=== PATIENT | male | born 1955 | race Caucasian/White ===

== ENCOUNTER 2018-03-25 09:56 | Inpatient (IN) ==
[2018-03-25] MEDS ORDERED: 0.9 % Sodium Chloride 1,000 ML IVC ONE (10:15)
[2018-03-25] MEDS ORDERED: methylPREDNISolone 125 MG/2 ML VIAL IVP ONE (10:15)
[2018-03-25] MEDS ORDERED: Ipratropium/Albuterol Neb 3 ML IH ONE (10:15)
--- NOTE | 2018-03-25 10:25 | Emergency Department Note ---
Disposition Clinical Impression: Chest pain, Hypertension, Alcohol abuse, COPD exacerbation Syncope Qualifiers: Syncope type: unspecified Qualified Code(s): R55 - Syncope and collapse Disposition: Admitted As Inpatient Condition: Good Forms: ED Satisfaction Letter General Adult HPI - General Chief complaint: ED Shortness of Breath/Dyspnea Stated complaint: ARA/mid right rib pain/?syncope Time Seen by Provider: 03/25/18 10:04 Source: patient, EMS Limitations: no limitations Nursing Notes Reviewed: Yes Vital Signs Reviewed: Yes - History of Present Illness HPI Narrative: 62-year-old male who denies having any past medical history aside from " possibly COPD". He reports he does not see doctors and has not been taking any medications. He reports a in the family a few months ago and has been drinking heavily since then. Over the last week he reports feeling nauseated and has had intermittent chest pain. Today however the chest pain got worse and he had 2 episodes of syncope. He reports the first was while he was walking to go see his dog and he syncopized. He had another episode where he syncopized while getting out of the shower. He states he is not having a headache and does not think he hit his head. He reports he did hit his arm but it is just bruised. He then texted a family member and told to call 911. He is not currently having any chest pain. He does state that he feels short of breath. Has not been coughing. No known coronary arterial disease Radiation: non-radiation Pain Severity: mild Pain Scale: 4 Improves with: nothing Worsens with: nothing Associated symptoms: Reports: denies other symptoms Treatments Prior to Arrival: none - Related Data Home Medications Medication Instructions Recorded Confirmed Ibuprofen [Motrin Ib] 400 mg PO Q6-8H PRN 03/25/18 03/25/18 Allergies Allergy/AdvReac Type Severity Reaction Status Date / Time No Known Allergies Allergy Verified 03/25/18 12:16 All systems ED: reviewed and negative except as stated. Constitutional: Denies: fever ENT ED: Denies: throat pain Cardiovascular: Reports: chest pain Respiratory: Reports: dyspnea Gastrointestinal: Reports: nausea. Denies: abdominal pain, vomiting, diarrhea Musculoskeletal: Denies: back pain Integumentary: Denies: rash Neurological: Denies: headache Past Medical History - Past Medical History Medical history: Reports: COPD, other Psychiatric history: Reports: anxiety, depression - Social History Smoking Status: Current every day smoker Smokeless Tobacco Status: No Alcohol use: Reports: heavy, recent Drug use: Reports: none Physical Exam - General Limitations: no limitations General appearance: alert - Head Head exam: atraumatic - Eye Eye exam: Present: normal appearance, PERRL - ENT ENT exam: normal exam, normal oropharynx - Neck Neck exam: Present: normal inspection - Chest Chest inspection: Present: normal inspection - Respiratory Respiratory exam: Present: wheezes (wheezes present), prolonged expiratory phase - Cardiovascular Cardiovascular exam: Present: regular rate, normal rhythm - Abdominal Exam Abdominal exam: Present: soft, Non-Tender - Extremities Exam Extremities exam: Present: normal inspection, other (contusion on left arm. Full ROM.) - Neurological Exam Neurological exam: Present: alert, oriented X3 - Skin Skin exam: Present: warm, dry Course Course Narrative: On presentation he was exhibiting pursed lip breathing. This improved markedly after DuoNeb's and steroids. Wheezing also improved. EKG does not show any acute abnormality was troponin is negative. He does not currently have any chest pain. Diagnosis #1 COPD exacerbation, #2 alcohol abuse, #3 syncope, #4 chest pain After being here 2 hours he began to have a tremor, tachycardia, and wanting a drink of ETOH. Gave him 2mg of ativan and banana bag. Accepted by the hospitalist. Vital Signs Temperature 97.8 F 03/25/18 10:08 Pulse Rate 85 03/25/18 10:08 Respiratory Rate 26 03/25/18 10:08 Blood Pressure 165/107 03/25/18 10:08 O2 Sat by Pulse Oximetry 96 03/25/18 10:08 Temperature 97.8 F 03/25/18 10:08 Pulse Rate 92 03/25/18 12:03 Respiratory Rate 20 03/25/18 12:03 Blood Pressure 194/111 03/25/18 12:03 O2 Sat by Pulse Oximetry 95 03/25/18 12:03 Oxygen Delivery Oxygen Delivery Room Air Medical Decision Making - Medical Records Medical records reviewed: Yes I reviewed the patient's medical records. - Lab Data Lab results reviewed: Yes I reviewed the patient's lab results. Result diagrams: 03/25/18 10:15 03/25/18 10:15 Lab Results 03/25/18 03/25/18 03/25/18 Range/Units 10:15 10:15 10:15 WBC 8.5 (4.3-11.1) K/mcL RBC 4.94 (4.19-5.50) M/mcL Hgb 16.7 (12.9-16.9) g/dL Hct 46.1 (37.5-50.1) % MCV 93.3 (83.0-100.0) fL MCH 33.8 H (28.0-33.3) pg MCHC 36.2 H (31.6-35.5) g/dL RDW 15.3 H (11.5-14.5) % Plt Count 173 (140-400) K/mcL MPV 9.1 L (9.4-12.4) fL Immature Gran % 1.2 (0-4) % Seg Neutrophils % 70.5 % Lymphocytes % 20.1 % Monocytes % 7.5 % Eosinophils % 0.0 % Basophils % 0.7 % Neutrophils # 6.0 (1.6-8.9) K/mcL Lymphocytes # 1.7 (0.6-4.6) K/mcL Monocytes # 0.6 (0.0-1.3) K/mcL Eosinophils # 0.0 (0.0-0.6) K/mcL Basophils # 0.1 (0.0-0.2) K/mcL D-Dimer 1045 H (0-500) ng/mLFEU Sodium 136 (136-145) mEq/L Potassium 3.7 (3.5-5.1) mEq/L Chloride 100 (98-107) mEq/L Carbon Dioxide 21 L (23-29) mEq/L BUN 7 L (8-23) mg/dL Creatinine 0.66 L (0.70-1.30) mg/dL Est GFR ( Amer) > 60 (> 60) Est GFR (Non-Af Amer) > 60 (> 60) BUN/Creatinine Ratio 11 (6-26) Glucose 131 H (70-105) mg/dL Calculated Osmolality 282 (280-300) Calcium 9.3 (8.6-10.3) mg/dL Total Bilirubin 0.4 (0.3-1.0) mg/dL Direct Bilirubin 0.1 (0.0-0.2) mg/dL Indirect Bilirubin 0.3 (0.0-1.2) mg/dL AST 56 H (13-39) Units/L ALT 51 (7-52) Units/L Alkaline Phosphatase 160 H (34-104) Units/L Troponin I 0.03 (< 0.04) ng/mL B-Natriuretic Peptide (Less than 100) pg/mL Serum Total Protein 7.1 (6.4-8.9) g/dL Albumin 3.8 (3.5-5.7) g/dL Globulin 3.3 (2.4-3.5) g/dL Albumin/Globulin Ratio 1.2 (1.1-2.2) Lipase 52 (11-82) Units/L Urine Color (Yellow) Urine Clarity (Clear) Urine pH (5.0-8.0) pH Units Ur Specific [place] (1.010-1.025) Urine Protein (Neg-Trace) mg/dL Urine Glucose (UA) (Normal) mg/dL Urine Ketones (Negative) mg/dL Urine Blood (Negative) Urine Nitrite (Negative) Urine Bilirubin (Negative) Urine Urobilinogen (Normal) mg/dL Ur Leukocyte Esterase (Negative) Urine Microscopic RBC (0-3) per hpf Urine Microscopic WBC (0-3) per hpf Ur Squamous Epith Cells (None-Few) per lpf Urine Bacteria (None-Few) per hpf Ur Culture Indicated? (NO) Ethyl Alcohol (Less than 10) mg/dL 03/25/18 03/25/18 03/25/18 Range/Units 10:15 10:18 11:09 WBC (4.3-11.1) K/mcL RBC (4.19-5.50) M/mcL Hgb (12.9-16.9) g/dL Hct (37.5-50.1) % MCV (83.0-100.0) fL MCH (28.0-33.3) pg MCHC (31.6-35.5) g/dL RDW (11.5-14.5) % Plt Count (140-400) K/mcL MPV (9.4-12.4) fL Immature Gran % (0-4) % Seg Neutrophils % % Lymphocytes % % Monocytes % % Eosinophils % % Basophils % % Neutrophils # (1.6-8.9) K/mcL Lymphocytes # (0.6-4.6) K/mcL Monocytes # (0.0-1.3) K/mcL Eosinophils # (0.0-0.6) K/mcL Basophils # (0.0-0.2) K/mcL D-Dimer (0-500) ng/mLFEU Sodium (136-145) mEq/L Potassium (3.5-5.1) mEq/L Chloride (98-107) mEq/L Carbon Dioxide (23-29) mEq/L BUN (8-23) mg/dL Creatinine (0.70-1.30) mg/dL Est GFR ( Amer) (> 60) Est GFR (Non-Af Amer) (> 60) BUN/Creatinine Ratio (6-26) Glucose (70-105) mg/dL Calculated Osmolality (280-300) Calcium (8.6-10.3) mg/dL Total Bilirubin (0.3-1.0) mg/dL Direct Bilirubin (0.0-0.2) mg/dL Indirect Bilirubin (0.0-1.2) mg/dL AST (13-39) Units/L ALT (7-52) Units/L Alkaline Phosphatase (34-104) Units/L Troponin I (< 0.04) ng/mL B-Natriuretic Peptide 20 (Less than 100) pg/mL Serum Total Protein (6.4-8.9) g/dL Albumin (3.5-5.7) g/dL Globulin (2.4-3.5) g/dL Albumin/Globulin Ratio (1.1-2.2) Lipase (11-82) Units/L Urine Color Yellow (Yellow) Urine Clarity Clear (Clear) Urine pH 7.0 (5.0-8.0) pH Units Ur Specific [place] 1.006 L (1.010-1.025) Urine Protein 30 H (Neg-Trace) mg/dL Urine Glucose (UA) Normal (Normal) mg/dL Urine Ketones Negative (Negative) mg/dL Urine Blood Moderate H (Negative) Urine Nitrite Negative (Negative) Urine Bilirubin Negative (Negative) Urine Urobilinogen Normal (Normal) mg/dL Ur Leukocyte Esterase Negative (Negative) Urine Microscopic RBC 0-3 (0-3) per hpf Urine Microscopic WBC 0-3 (0-3) per hpf Ur Squamous Epith Cells Few (None-Few) per lpf Urine Bacteria None Seen (None-Few) per hpf Ur Culture Indicated? NO (NO) Ethyl Alcohol 266 H (Less than 10) mg/dL - Radiology Data Radiology results reviewed: Yes I reviewed the patient's radiology results. - EKG Data EKG #1 EKG attestation: Yes I reviewed and interpreted this EKG. EKG shows normal: sinus rhythm Rate: normal Rhythm: NSR When compared to previous EKG there are: no significant changes Interpretation: no acute changes, unchanged when compared to prior tracing (date )
--- NOTE | 2018-03-25 10:35 | Emergency Department Note ---
Disposition Clinical Impression: Syncope Qualifiers: Syncope type: unspecified Qualified Code(s): R55 - Syncope and collapse Disposition: Still a Patient Forms: ED Satisfaction Letter General Adult HPI - General Chief complaint: ED Shortness of Breath/Dyspnea Stated complaint: ARA/mid right rib pain/?syncope Time Seen by Provider: 03/25/18 10:04 Source: patient, EMS Limitations: no limitations - History of Present Illness Pain Scale: 4 Improves with: nothing Worsens with: nothing Associated symptoms: Reports: denies other symptoms Treatments Prior to Arrival: none - Related Data Home Medications Medication Instructions Recorded Confirmed No Known Home Drugs 03/25/18 03/25/18 Allergies Allergy/AdvReac Type Severity Reaction Status Date / Time No Known Allergies Allergy Verified 03/25/18 10:07 Constitutional: Denies: fever ENT ED: Denies: throat pain Cardiovascular: Reports: chest pain Respiratory: Reports: dyspnea Gastrointestinal: Reports: nausea. Denies: abdominal pain, vomiting, diarrhea Musculoskeletal: Denies: back pain Integumentary: Denies: rash Neurological: Denies: headache Past Medical History - Past Medical History Medical history: Reports: COPD, other Psychiatric history: Reports: anxiety, depression - Social History Smoking Status: Current every day smoker Smokeless Tobacco Status: No Alcohol use: Reports: heavy, recent Drug use: Reports: none Physical Exam - General Limitations: no limitations General appearance: alert Course Vital Signs Temperature 97.8 F 03/25/18 10:08 Pulse Rate 85 03/25/18 10:08 Respiratory Rate 03/25/18 10:08 Blood Pressure 165/107 03/25/18 10:08 O2 Sat by Pulse Oximetry 96 03/25/18 10:08 Temperature 97.8 F 03/25/18 10:08 Pulse Rate 85 03/25/18 10:20 Respiratory Rate 26 03/25/18 10:20 Blood Pressure 165/107 03/25/18 10:20 O2 Sat by Pulse Oximetry 96 03/25/18 10:20 Oxygen Delivery Oxygen Delivery Room Air Attestation Statement - Attestation Attestation: I examined this patient and my medical decision-making was reviewed with the Resident Physician. I agree with the documented findings, disposition and treatment plan as described except to the extent set forth below. 62 year old male presents to the eD after syncope and states that he has had some difficulty in breathing and states that he has been drinking all day. vital signs are stable. WE will do a syncopal workup.
[2018-03-25 10:40] LABS: Basophils # 0.1 K/mcL (0.0-0.2); Basophils % 0.7 %; Hematocrit 46.1 % (37.5-50.1); Hemoglobin 16.7 g/dL (12.9-16.9); Immature Granulocytes % 1.2 % (0-4); Lymphocytes # 1.7 K/mcL (0.6-4.6); Lymphocytes % 20.1 %; Mean Corpuscular HGB Conc 36.2 g/dL (31.6-35.5); Mean Corpuscular Hemoglobin 33.8 pg (28.0-33.3); Mean Corpuscular Volume 93.3 fL (83.0-100.0); Mean Platelet Volume 9.1 fL (9.4-12.4); Monocytes # 0.6 K/mcL (0.0-1.3); Monocytes % 7.5 %; Platelet Count 173 K/mcL (140-400); Red Blood Count 4.94 M/mcL (4.19-5.50); Red Cell Distribution Width 15.3 % (11.5-14.5); Segmented Neutrophils % 70.5 %
[2018-03-25 10:59] LABS: Alanine Aminotransferase 51 Units/L (7-52); Albumin 3.8 g/dL (3.5-5.7); Albumin/Globulin Ratio 1.2 (1.1-2.2); Alkaline Phosphatase 160 Units/L (34-104); Aspartate Amino Transferase 56 Units/L (13-39); BUN/Creatinine Ratio 11 (6-26); Bilirubin,Direct 0.1 mg/dL (0.0-0.2); Bilirubin,Indirect 0.3 mg/dL (0.0-1.2); Bilirubin,Total 0.4 mg/dL (0.3-1.0); Blood Urea Nitrogen 7 mg/dL (8-23); Calcium 9.3 mg/dL (8.6-10.3); Carbon Dioxide 21 mEq/L (23-29); Chloride 100 mEq/L (98-107); Globulin 3.3 g/dL (2.4-3.5); Glucose 131 mg/dL (70-105); Lipase 52 Units/L (11-82); Osmolality,Calculated 282 (280-300); Potassium 3.7 mEq/L (3.5-5.1); Sodium 136 mEq/L (136-145); Total Protein 7.1 g/dL (6.4-8.9); Troponin I 0.03 ng/mL (< 0.04); eGFR For African Americans > 60 (> 60); eGFR For Non-African Americans > 60 (> 60)
[2018-03-25] MEDS ORDERED: Isovue-370 500 ML INFUS..BTL IV ONE (11:07)
[2018-03-25 11:19] LABS: Bilirubin,Urine Negative (Negative); Blood,Urine Moderate (Negative); Clarity,Urine Clear (Clear); Color,Urine Yellow (Yellow); Glucose,Urine (UA) Normal (Normal); Ketones,Urine Negative (Negative); Leukocyte Esterase,Urine Negative (Negative); Nitrite,Urine Negative (Negative); Protein,Urine 30 mg/dL (Neg-Trace); Specific Gravity,Urine 1.006 (1.010-1.025); Urobilinogen,Urine Normal (Normal)
[2018-03-25 11:38] LABS: Bacteria,Urine None Seen per hpf (None-Few); RBC,Urine 0-3 per hpf (0-3); Squamous Epithelial Cell,Urine Few per lpf (None-Few); WBC,Urine 0-3 per hpf (0-3)
[2018-03-25] MEDS ORDERED: Thiamine (B-1) 100 MG, Folic Acid 1 MG, MVI, adult with vitamin K 10 ML in 0.9 % Sodi... IVPB ONE (12:36)
[2018-03-25] MEDS ORDERED: *HR* LORazepam 2 MG/ML VIAL IVP ONE (12:36)
[2018-03-25] MEDS ORDERED: Aspirin 325 MG TABLET PO ONE (12:41)
[2018-03-25] MEDS ORDERED: Naloxone 0.4 MG/ML INJ IVP PRN (13:26)
[2018-03-25] MEDS ORDERED: *HR* OxyCODONE Immed Rel 5 MG TABLET PO PRN (13:26)
[2018-03-25] MEDS ORDERED: Acetaminophen 325 MG TABLET PO PRN (13:26)
[2018-03-25] MEDS ORDERED: *HR* HYDROcodone/Acet 5/325 mg TABLET PO PRN (13:26)
[2018-03-25] MEDS ORDERED: *HR* LORazepam 2 MG/ML VIAL IVP PRN (13:28)
[2018-03-25] MEDS ORDERED: diazePAM 10 MG/2 ML SYRINGE IVP PRN (13:28)
--- NOTE | 2018-03-25 13:34 | Internal Med History&Physical ---
Date of Encounter: 03/25/18 Time of Encounter: 13:00 Internal Medicine - H&P: HPI Chief complaint: Chest pain, syncope, alcohol intoxication Admitted From: Emergency Dept Plans for Post Hospital Care: Home History of present illness: Mr. Hernandez is a 62 year old male with known history of chronic alcohol dependence who was under remission till last month, now he started drinking almost every day 10 to 12 beers presented to the ER complaining about has been passing out since last night also had chest pain located at sub sternal region and left chest wall area. Patient did mention that this morning while brushing his teeth he became lightheadedness and passed out for quick 1 to 2 minutes. He denied of any seizure activity. He did mention chest pain intermittently since last night located at sub sternal region non-radiating and more like sharp pain. He denied of an active chest pain at this moment. Patient seems to be alcohol intoxicated with his alcohol level at 266. He does complaining about severe tremors and shakiness now. Past Med Surg Social Fam HX - Past Medical History Medical history: COPD, other Additional medical history: ETOH abuse Psychiatric history: anxiety, depression - Social History Smoking Status: Current every day smoker Smokeless Tobacco Status: No Alcohol use: heavy, recent Drug use: none - Additional Family History Additional family history: Family hsitory reviewed and non contribuitory to current problem. Internal Medicine - H&P: Meds Ibuprofen [Motrin Ib] 400 mg PO Q6-8H PRN 03/25/18 [History] 3 Allergy/AdvReac Type Severity Reaction Status Date / Time No Known Allergies Allergy Verified 03/25/18 12:16 All Systems PM: A 10-system review of systems was performed and is negative for pertinent findings except as documented above in the HPI. Review of systems: All the systems are reviewed everything is benign except the systems and symptoms I mentioned in the history of present illness - Constitutional Vitals: Temp Pulse Resp BP Pulse Ox 97.8 F 92 20 194/111 95 03/25/18 10:08 03/25/18 12:03 03/25/18 12:03 03/25/18 12:03 03/25/18 12:03 General appearance: Present: cooperative, mild distress, A&O X 3, answers questions appropriately Exam: Anxious - Head Head exam: Present: atraumatic, normal inspection - Neck Neck exam general surgery: Present: supple - Respiratory Respiratory exam: Present: decreased breath sounds. Absent: rales, respiratory distress, rhonchi, wheezes - Cardiovascular Cardiovascular exam: Present: +S1, +S2, tachycardia. Absent: systolic murmur - GI/Abdominal GI/Abdominal exam: Present: normal bowel sounds, soft. Absent: guarding, rebound, rigid, tenderness - Extremities Exam Extremities exam: Absent: calf tenderness, pedal edema, tenderness - Back Exam Back exam: Absent: CVA tenderness (L), CVA tenderness (R) - Neurological Exam Neurological exam: Present: alert, oriented X3 - Psychiatric Psychiatric exam: Present: anxious - Skin Skin exam: Absent: rash Internal Med - H&P Results - Labs CBC & Chem 7: 03/25/18 10:15 03/25/18 10:15 Labs: Short CBC 03/25/18 Range/Units 10:15 WBC 8.5 (4.3-11.1) K/mcL Hgb 16.7 (12.9-16.9) g/dL Hct 46.1 (37.5-50.1) % Plt Count 173 (140-400) K/mcL Neutrophils # 6.0 (1.6-8.9) K/mcL BMP 03/25/18 10:15 Sodium 136 Potassium 3.7 Chloride 100 Carbon Dioxide 21 L BUN 7 L Creatinine 0.66 L Glucose 131 H Calcium 9.3 Cardiac Enzymes 03/25/18 Range/Units 10:15 Troponin I 0.03 (< 0.04) ng/mL Liver Function 03/25/18 Range/Units 10:15 Total Bilirubin 0.4 (0.3-1.0) mg/dL Direct Bilirubin 0.1 (0.0-0.2) mg/dL AST 56 H (13-39) Units/L ALT 51 (7-52) Units/L Alkaline Phosphatase 160 H (34-104) Units/L Albumin 3.8 (3.5-5.7) g/dL Urine 03/25/18 Range/Units 11:09 Urine Color Yellow (Yellow) Urine Clarity Clear (Clear) Urine pH 7.0 (5.0-8.0) pH Units Ur Specific [place] 1.006 L (1.010-1.025) Urine Protein 30 H (Neg-Trace) mg/dL Urine Glucose (UA) Normal (Normal) mg/dL - Impressions ITS Impressions Chest X-Ray 03/25/18 10:15 IMPRESSION: Negative portable study. D/ / Elina Barba Cha, MD / Elina Barba Cha, MD Interpreting Provider: Elina Barba Cha, MD Head CT 03/25/18 10:27 IMPRESSION: No acute intracranial abnormality. D/ / Paulino Spicer MD / Paulino Spicer MD Interpreting Provider: Paulino Spicer MD Chest CTA 03/25/18 11:07 IMPRESSION: No evidence of pulmonary embolism or acute pulmonary abnormality. Hepatic steatosis. 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 serial troponin so far negative trop will start ASA will get 2 D echo in AM Will check FLP in AM Will check ortho stat vitals Started on IV fluids He is high risk for DT's so definitely need more than 2 to 3 days of hospital stay and close monitoring Qualifiers: Syncope type: unspecified Qualified Code(s): R55 - Syncope and collapse (2) Alcohol intoxication Current Visit: Yes Status: Acute Assessment and plan: Counseled to quit drinking alcohol patient did mention his mother a month ago since then he became alcohol dependence again currently he is an active DTs with tremors, shakiness and anxiety started him on CIWA protocol Will also give him Librium 50g Q6hr YOLI banana bag daily PO Thiamine and Folic acid continue checking LFTs Qualifiers: Complication of substance-induced condition: with unspecified complication Qualified Code(s): F10.929 - Alcohol use, unspecified with intoxication, unspecified (3) Alcohol dependence Current Visit: Yes Status: Acute Assessment and plan: Patient is willing to go to rehab licensed clinical social worker consulted to help the patient about alcohol rehab centers Qualifiers: Substance use status: with intoxication Complication of substance-induced condition: with unspecified complication Qualified Code(s): F10.229 - Alcohol dependence with intoxication, unspecified (4) Chest pain Current Visit: Yes Status: Acute Assessment and plan: Atypical no acute EKG changes noticed placed him on tele trend on troponin Qualifiers: Chest pain type: unspecified Qualified Code(s): R07.9 - Chest pain, unspecified (5) Tobacco dependence Current Visit: Yes Status: Acute Assessment and plan: Counseled to quit smoking placed on nicotine patch - Time Spent With Patient Total time spent is greater than 50% in coordination of care (as documented) at patient's floor/unit and/or counseling patient:
[2018-03-25] MEDS: Nicotine 21 MG PATCH.TD24 TD SCH (15:10)
[2018-03-25] MEDS: Thiamine (B-1) 100 MG TABLET PO SCH (15:10)
[2018-03-25] MEDS: *HR* Promethazine 25 MG/ML VIAL IVP PRN (15:10)
[2018-03-25] MEDS: Vitamin B Complex/Vit C/Vit E 1 EACH TABLET PO SCH (15:10)
[2018-03-25] MEDS: 0.9 % Sodium Chloride 1,000 ML IVC SCH ×2 (15:14→23:29)
[2018-03-25] MEDS: *HR* LORazepam 2 MG/ML VIAL IVP PRN (21:28)
[2018-03-26] MEDS: *HR* Promethazine 25 MG/ML VIAL IVP PRN ×2 (03:54→11:48)
[2018-03-26 05:14] LABS: Basophils % 0.1 %; Hematocrit 40.7 % (37.5-50.1); Immature Granulocytes % 0.8 % (0-4); Lymphocytes # 0.8 K/mcL (0.6-4.6); Lymphocytes % 5.7 %; Mean Corpuscular HGB Conc 34.6 g/dL (31.6-35.5); Mean Corpuscular Hemoglobin 32.7 pg (28.0-33.3); Mean Corpuscular Volume 94.4 fL (83.0-100.0); Mean Platelet Volume 9.6 fL (9.4-12.4); Monocytes # 0.7 K/mcL (0.0-1.3); Monocytes % 4.9 %; Platelet Count 120 K/mcL (140-400); Red Blood Count 4.31 M/mcL (4.19-5.50); Red Cell Distribution Width 15.9 % (11.5-14.5); Segmented Neutrophils % 88.5 %
[2018-03-26 05:17] LABS: Hemoglobin 14.1 g/dL (12.9-16.9); Neutrophils # 12.4 K/mcL (1.6-8.9)
[2018-03-26 05:22] LABS: INR 1.1; Prothrombin Time 11.8 Seconds (9.4-12.1)
[2018-03-26] MEDS: *HR* Enoxaparin 40 MG/0.4 ML SYRINGE SQ SCH (05:32)
[2018-03-26 05:40] LABS: Alanine Aminotransferase 35 Units/L (7-52); Albumin 3.2 g/dL (3.5-5.7); Albumin/Globulin Ratio 1.2 (1.1-2.2); Alkaline Phosphatase 128 Units/L (34-104); Aspartate Amino Transferase 34 Units/L (13-39); BUN/Creatinine Ratio 21 (6-26); Bilirubin,Total 0.6 mg/dL (0.3-1.0); Blood Urea Nitrogen 11 mg/dL (8-23); Calcium 8.9 mg/dL (8.6-10.3); Carbon Dioxide 23 mEq/L (23-29); Chloride 107 mEq/L (98-107); Chol/HDL Ratio 2.5 (0-4.9); Cholesterol 165 mg/dL (< 200); Globulin 2.7 g/dL (2.4-3.5); Glucose 171 mg/dL (70-105); HDL Cholesterol 67 mg/dL (40-59); LDL Cholesterol,Calculated 86 mg/dL (0-99); Magnesium 1.7 mg/dL (1.6-2.6); Osmolality,Calculated 287 (280-300); Phosphorous 3.2 mg/dL (2.7-4.5); Potassium 3.8 mEq/L (3.5-5.1); Sodium 137 mEq/L (136-145); Total Protein 5.9 g/dL (6.4-8.9); Triglycerides 58 mg/dL (< 150); eGFR For African Americans > 60 (> 60); eGFR For Non-African Americans > 60 (> 60)
[2018-03-26] MEDS: Thiamine (B-1) 100 MG TABLET PO SCH (09:48)
[2018-03-26] MEDS: Folic Acid 1 MG TABLET PO SCH (09:48)
[2018-03-26] MEDS: Nicotine 21 MG PATCH.TD24 TD SCH (09:48)
[2018-03-26] MEDS: Vitamin B Complex/Vit C/Vit E 1 EACH TABLET PO SCH (09:48)
[2018-03-26] MEDS: *HR* LORazepam 2 MG/ML VIAL IVP PRN ×2 (09:54→21:21)
--- NOTE | 2018-03-26 10:46 | Internal Med Progress Note ---
Date of Encounter: 03/26/18 Time of Encounter: 10:00 - Assessment and plan (1) Syncope Current Visit: Yes Status: Acute Assessment and plan: Pt's Syncope seems to be more like vasovagal reaction / ortho static / alcohol intoxication trops are negative x 3 Cont ASA 2 D echo - P reviewed FLP- WNL Cont IVF x 1 bag Qualifiers: Syncope type: unspecified Qualified Code(s): R55 - Syncope and collapse (2) Alcohol intoxication Current Visit: Yes Status: Acute Assessment and plan: Counseled to quit drinking alcohol patient did mention his mother a month ago since then he became alcohol dependence again currently he is an active DTs with tremors, shakiness and anxiety Cont him on CIWA protocol Cont Librium 50g Q6hr YOLI PO Thiamine and Folic acid Improved LFT's Qualifiers: Complication of substance-induced condition: with unspecified complication Qualified Code(s): F10.929 - Alcohol use, unspecified with intoxication, unspecified (3) Alcohol dependence Current Visit: Yes Status: Acute Assessment and plan: Patient is willing to go to rehab rn social work consulted to help the patient about alcohol rehab centers Qualifiers: Substance use status: with intoxication Complication of substance-induced condition: with unspecified complication Qualified Code(s): F10.229 - Alcohol dependence with intoxication, unspecified (4) Chest pain Current Visit: Yes Status: Acute Assessment and plan: Atypical no acute EKG changes noticed Cont him on tele Negative troponin Qualifiers: Chest pain type: unspecified Qualified Code(s): R07.9 - Chest pain, unspecified (5) Tobacco dependence Current Visit: Yes Status: Acute Assessment and plan: Counseled to quit smoking placed on nicotine patch - Time Spent With Patient Total time spent is greater than 50% in coordination of care (as documented) at patient's floor/unit and/or counseling patient: - Subjective Interval history: Mr. Hernandez is a 62 year old male with known history of chronic alcohol dependence who was under remission till last month, now he started drinking almost every day 10 to 12 beers presented to the ER complaining about has been passing out since last night also had chest pain located at sub sternal region and left chest wall area. Patient did mention that this morning while brushing his teeth he became lightheadedness and passed out for quick 1 to 2 minutes. He denied of any seizure activity. Patient seems to be alcohol intoxicated with his alcohol level at 266. Pt was admitted in the hospital and placed him on tele. He was placed on CIWA protocol. Today he is more alert, awake and O x 3. Denied any CP . SOB. He still has tremors and shakiness. Pt states he feels little better only. - Constitutional Vitals: Temp Pulse Resp BP Pulse Ox 98 F 90 21 121/74 93 03/26/18 06:29 03/26/18 06:29 03/26/18 06:29 03/26/18 06:29 03/26/18 06:29 General appearance: Present: cooperative, mild distress, A&O X 3, answers questions appropriately Exam: tremors+ - Head Head exam: Present: atraumatic, normal inspection - Neck Neck exam general surgery: Present: supple - Respiratory Respiratory exam: Present: decreased breath sounds. Absent: rales, respiratory distress, rhonchi, wheezes - Cardiovascular Cardiovascular exam: Present: RRR, +S1, +S2. Absent: tachycardia - GI/Abdominal GI/Abdominal exam: Present: normal bowel sounds, soft. Absent: rebound, rigid, tenderness - Extremities Exam Extremities exam: Absent: calf tenderness, pedal edema, tenderness - Back Exam Back exam: Absent: CVA tenderness (L), CVA tenderness (R) - Neurological Exam Neurological exam: Present: alert, oriented X3 - Psychiatric Psychiatric exam: Present: anxious - Skin Skin exam: Absent: rash Internal Medicine: Result - Labs CBC & Chem 7: 03/26/18 04:48 03/26/18 04:48 Labs: Short CBC 03/26/18 Range/Units 04:48 WBC 14.0 H D (4.3-11.1) K/mcL Hgb 14.1 D (12.9-16.9) g/dL Hct 40.7 (37.5-50.1) % Plt Count 120 L (140-400) K/mcL Neutrophils # 12.4 H (1.6-8.9) K/mcL BMP 03/26/18 04:48 Sodium 137 Potassium 3.8 Chloride 107 Carbon Dioxide 23 BUN 11 Creatinine 0.53 L Glucose 171 H Calcium 8.9 Cardiac Enzymes 03/25/18 03/25/18 Range/Units 16:09 22:27 Troponin I 0.03 0.03 (< 0.04) ng/mL Liver Function 03/26/18 Range/Units 04:48 Total Bilirubin 0.6 (0.3-1.0) mg/dL AST 34 (13-39) Units/L ALT 35 (7-52) Units/L Alkaline Phosphatase 128 H (34-104) Units/L Albumin 3.2 L (3.5-5.7) g/dL - ABG Interpretation ABG results: PT/INR, D-dimer PT 11.8 Seconds (9.4-12.1) 03/26/18 04:48 D-Dimer 1045 ng/mLFEU (0-500) H 03/25/18 10:15 - Impressions Impressions Echocardiogram 03/26/18 13:29 Impressions: LVEF 65-70%. Mild left ventricular diastolic dysfunction. Normal right ventricular structure and function. No significant valvular dysfunction. No pulmonary hypertension. Left Ventricular Wall Motion: Rest Echo Findings All wall segments showed normal motion. Findings: Study Quality * Technically adequate exam. ECG Findings * Normal sinus rhythm. Left Ventricle * LVEF 65-70%. * Mild left ventricular diastolic dysfunction. * Normal LV chamber size and wall thickness. Right Ventricle * Normal right ventricular structure and function. Left Atrium * Normal left atrial size. Right Atrium * Normal right atrial size. Mitral Valve * Normal mitral valve structure. * No mitral stenosis. * No mitral regurgitation. Aortic Valve * No aortic regurgitation. * Aortic valve not well visualized. * No aortic stenosis. Tricuspid Valve * Tricuspid valve not well visualized. * No tricuspid regurgitation. * Estimated RA pressure is 3 mmHg. * Estimated RVSP is 18 mmHg. * No pulmonary hypertension. Pulmonic Valve * Pulmonic valve is not well visualized. * No pulmonic stenosis. * No pulmonic regurgitation. Pulmonary Artery * Pulmonary artery not well visualized. Aorta * Normally sized aortic root. Pericardium * There is no pericardial effusion present. Interatrial Septum * No evidence of PFO by color Doppler. IVC * The IVC is not dilated. Consult Discharge Plan - Plan Referrals: NONE,PCP [Primary Care Provider] - Falguni Rodriguez [Family Provider] -
[2018-03-26] MEDS ORDERED: 0.9 % Sodium Chloride 1,000 ML IVC SCH (11:00)
--- NOTE | 2018-03-26 17:34 | Electrocardiograph Report ---
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
[2018-03-27] MEDS: *HR* LORazepam 2 MG/ML VIAL IVP PRN ×3 (00:46→23:55)
[2018-03-27] MEDS: *HR* Enoxaparin 40 MG/0.4 ML SYRINGE SQ SCH (05:24)
[2018-03-27 05:25] LABS: Basophils % 0.2 %; Eosinophils % 0.3 %; Hematocrit 40.9 % (37.5-50.1); Hemoglobin 13.9 g/dL (12.9-16.9); Immature Granulocytes % 0.8 % (0-4); Lymphocytes # 2.4 K/mcL (0.6-4.6); Lymphocytes % 23.6 %; Mean Corpuscular Volume 97.1 fL (83.0-100.0); Mean Platelet Volume 10.1 fL (9.4-12.4); Monocytes # 0.6 K/mcL (0.0-1.3); Monocytes % 5.6 %; Neutrophils # 7.1 K/mcL (1.6-8.9); Platelet Count 109 K/mcL (140-400); Red Blood Count 4.21 M/mcL (4.19-5.50); Red Cell Distribution Width 16.7 % (11.5-14.5); Segmented Neutrophils % 69.5 %
[2018-03-27 05:46] LABS: Alanine Aminotransferase 34 Units/L (7-52); Albumin 3.1 g/dL (3.5-5.7); Albumin/Globulin Ratio 1.2 (1.1-2.2); Alkaline Phosphatase 106 Units/L (34-104); Aspartate Amino Transferase 38 Units/L (13-39); BUN/Creatinine Ratio 27 (6-26); Bilirubin,Total 0.5 mg/dL (0.3-1.0); Blood Urea Nitrogen 17 mg/dL (8-23); Calcium 8.9 mg/dL (8.6-10.3); Carbon Dioxide 23 mEq/L (23-29); Chloride 109 mEq/L (98-107); Globulin 2.6 g/dL (2.4-3.5); Glucose 122 mg/dL (70-105); Magnesium 1.8 mg/dL (1.6-2.6); Osmolality,Calculated 291 (280-300); Potassium 3.9 mEq/L (3.5-5.1); Sodium 139 mEq/L (136-145); Total Protein 5.7 g/dL (6.4-8.9); eGFR For African Americans > 60 (> 60); eGFR For Non-African Americans > 60 (> 60)
[2018-03-27] MEDS: Thiamine (B-1) 100 MG TABLET PO SCH (09:02)
[2018-03-27] MEDS: Nicotine 21 MG PATCH.TD24 TD SCH (09:03)
[2018-03-27] MEDS: Vitamin B Complex/Vit C/Vit E 1 EACH TABLET PO SCH (09:03)
[2018-03-27] MEDS: Folic Acid 1 MG TABLET PO SCH (09:03)
--- NOTE | 2018-03-27 14:05 | Internal Med Progress Note ---
<Pallavi Morales - Last Filed: 03/27/18 16:02> Date of Encounter: 03/27/18 Time of Encounter: 16:03 - Assessment and plan (1) Syncope Current Visit: Yes Status: Acute Assessment and plan: Pt's Syncope seems to be more like vasovagal reaction / ortho static / alcohol intoxication trops are negative x 3 Cont ASA Echo EF 65-70% with mild LV diastolic dysfunction Qualifiers: Syncope type: unspecified Qualified Code(s): R55 - Syncope and collapse (2) Chest pain Current Visit: Yes Status: Acute Assessment and plan: Atypical no acute EKG changes noticed Cont him on tele Negative troponin Qualifiers: Chest pain type: unspecified Qualified Code(s): R07.9 - Chest pain, unspecified (3) Alcohol intoxication Current Visit: Yes Status: Acute Assessment and plan: currently he is an active DTs with tremors, shakiness and anxiety Cont him on CIWA protocol Cont Librium 50g Q6hr YOLI PO Thiamine and Folic acid Improved LFT's Added clonidine BID Qualifiers: Complication of substance-induced condition: with unspecified complication Qualified Code(s): F10.929 - Alcohol use, unspecified with intoxication, unspecified (4) Alcohol dependence Current Visit: Yes Status: Acute Assessment and plan: Patient is willing to go to rehab social media marketing analyst consulted to help the patient about alcohol rehab centers Qualifiers: Substance use status: with intoxication Complication of substance-induced condition: with unspecified complication Qualified Code(s): F10.229 - Alcohol dependence with intoxication, unspecified (5) Tobacco dependence Current Visit: Yes Status: Acute Assessment and plan: placed on nicotine patch - Time Spent With Patient Total time spent is greater than 50% in coordination of care (as documented) at patient's floor/unit and/or counseling patient: - Subjective Interval history: Patient states he has had some anxiety today but otherwise feeling okay. Patient denies any other complaints at this time. Nursing has noted minimal shaking throughout the day. - Constitutional Vitals: Temp Pulse Resp BP Pulse Ox 97.8 F 66 15 147/86 94 03/27/18 11:27 03/27/18 11:27 03/27/18 11:27 03/27/18 11:27 03/27/18 11:27 General appearance: Present: cooperative, mild distress, A&O X 3, answers questions appropriately - Respiratory Respiratory exam: Present: CTAB. Absent: accessory muscle use, respiratory distress - Cardiovascular Cardiovascular exam: Present: RRR - GI/Abdominal GI/Abdominal exam: Present: soft. Absent: rebound, rigid, tenderness - Extremities Exam Extremities exam: Present: warm. Absent: tenderness - Neurological Exam Neurological exam: Present: no focal deficits Internal Medicine: Result - Labs CBC & Chem 7: 03/27/18 04:55 03/27/18 04:55 Labs: Short CBC 03/27/18 Range/Units 04:55 WBC 10.3 (4.3-11.1) K/mcL Hgb 13.9 (12.9-16.9) g/dL Hct 40.9 (37.5-50.1) % Plt Count 109 L (140-400) K/mcL Neutrophils # 7.1 (1.6-8.9) K/mcL BMP 03/27/18 04:55 Sodium 139 Potassium 3.9 Chloride 109 H Carbon Dioxide 23 BUN 17 Creatinine 0.63 L Glucose 122 H Calcium 8.9 Liver Function 03/27/18 Range/Units 04:55 Total Bilirubin 0.5 (0.3-1.0) mg/dL AST 38 (13-39) Units/L ALT 34 (7-52) Units/L Alkaline Phosphatase 106 H (34-104) Units/L Albumin 3.1 L (3.5-5.7) g/dL - ABG Interpretation ABG results: PT/INR, D-dimer PT 11.8 Seconds (9.4-12.1) 03/26/18 04:48 D-Dimer 1045 ng/mLFEU (0-500) H 03/25/18 10:15 Consult Discharge Plan - Plan Referrals: NONE,PCP [Primary Care Provider] - Falguni Rodriguez [Family Provider] - <Jose Rafael Ortega - Last Filed: 03/27/18 18:28> Date of Encounter: 03/27/18 - Assessment and plan (1) Alcohol withdrawal Current Visit: Yes Status: Acute Qualifiers: Complication of substance-induced condition: uncomplicated Qualified Code(s ): F10.230 - Alcohol dependence with withdrawal, uncomplicated (2) Alcohol dependence Current Visit: Yes Status: Acute Qualifiers: Substance use status: with intoxication Complication of substance-induced condition: uncomplicated Qualified Code(s): F10.220 - Alcohol dependence with intoxication, uncomplicated (3) Syncope Current Visit: Yes Status: Resolved Qualifiers: Syncope type: unspecified Qualified Code(s): R55 - Syncope and collapse (4) Chest pain Current Visit: Yes Status: Resolved Qualifiers: Chest pain type: unspecified Qualified Code(s): R07.9 - Chest pain, unspecified (5) Tobacco dependence Current Visit: Yes Status: Acute (6) Hypertension Current Visit: Yes Status: Chronic Qualifiers: Hypertension type: essential hypertension Qualified Code(s): I10 - Essential (primary) hypertension (7) Severe protein-calorie malnutrition Current Visit: Yes Status: Chronic - Time Spent With Patient Total time spent is greater than 50% in coordination of care (as documented) at patient's floor/unit and/or counseling patient: - Constitutional Vitals: Temp Pulse Resp BP Pulse Ox 96.9 F L 81 18 157/92 94 03/27/18 15:58 03/27/18 15:58 03/27/18 15:58 03/27/18 15:58 03/27/18 15:58 Internal Medicine: Result - Labs CBC & Chem 7: 03/27/18 04:55 03/27/18 04:55 Labs: Short CBC 03/27/18 Range/Units 04:55 WBC 10.3 (4.3-11.1) K/mcL Hgb 13.9 (12.9-16.9) g/dL Hct 40.9 (37.5-50.1) % Plt Count 109 L (140-400) K/mcL Neutrophils # 7.1 (1.6-8.9) K/mcL BMP 03/27/18 04:55 Sodium 139 Potassium 3.9 Chloride 109 H Carbon Dioxide 23 BUN 17 Creatinine 0.63 L Glucose 122 H Calcium 8.9 Liver Function 03/27/18 Range/Units 04:55 Total Bilirubin 0.5 (0.3-1.0) mg/dL AST 38 (13-39) Units/L ALT 34 (7-52) Units/L Alkaline Phosphatase 106 H (34-104) Units/L Albumin 3.1 L (3.5-5.7) g/dL - ABG Interpretation ABG results: PT/INR, D-dimer PT 11.8 Seconds (9.4-12.1) 03/26/18 04:48 D-Dimer 1045 ng/mLFEU (0-500) H 03/25/18 10:15 - Attending Attestation I examined this patient and my medical decision-making was reviewed with the Resident Physician on 03/27/18. I agree with the documented findings, disposition and treatment plan as described except to the extent set forth below. Mr Hernandez is currently admitted for acute alcohol intoxication and withdrawal. He is worsening and may be heading to DTs. He remains moderate to high risk due to potential for worsening clinical status. Mr Hernandez is very shaky. He is not confused. BP and heart rate are up. No fever or chills. No GI issues. Exam Alert Mod distress Tremor noted Mucus membranes dry Heart tachy Lungs diminished I/P 1. ETOH abuse and withdrawal Further diagnoses and plan as above.
[2018-03-27] MEDS: cloNIDine HCl 0.1 MG TABLET PO SCH ×2 (18:06→23:30)
[2018-03-28 04:20] LABS: Basophils % 0.6 %; Eosinophils % 1.3 %; Mean Corpuscular Volume 97.9 fL (83.0-100.0)
[2018-03-28 04:22] LABS: Eosinophils # 0.1 K/mcL (0.0-0.6); Hematocrit 37.5 % (37.5-50.1); Immature Granulocytes % 1.3 % (0-4); Immature Platelets 4.1 % (1.1-6.1); Lymphocytes # 2.7 K/mcL (0.6-4.6); Lymphocytes % 37.5 %; Mean Corpuscular HGB Conc 34.7 g/dL (31.6-35.5); Mean Corpuscular Hemoglobin 33.9 pg (28.0-33.3); Mean Platelet Volume 10.3 fL (9.4-12.4); Monocytes # 0.5 K/mcL (0.0-1.3); Monocytes % 6.7 %; Neutrophils # 3.8 K/mcL (1.6-8.9); Nucleated Red Blood Cells 0.3 /100 WBC (0); Red Blood Count 3.83 M/mcL (4.19-5.50); Red Cell Distribution Width 16.1 % (11.5-14.5); Segmented Neutrophils % 52.6 %
[2018-03-28 04:24] LABS: Platelet Count 97 K/mcL (140-400)
[2018-03-28 04:40] LABS: Alanine Aminotransferase 34 Units/L (7-52); Albumin 2.8 g/dL (3.5-5.7); Albumin/Globulin Ratio 1.2 (1.1-2.2); Alkaline Phosphatase 82 Units/L (34-104); Aspartate Amino Transferase 35 Units/L (13-39); BUN/Creatinine Ratio 28 (6-26); Bilirubin,Total 0.5 mg/dL (0.3-1.0); Blood Urea Nitrogen 17 mg/dL (8-23); Calcium 8.5 mg/dL (8.6-10.3); Carbon Dioxide 25 mEq/L (23-29); Chloride 110 mEq/L (98-107); Globulin 2.3 g/dL (2.4-3.5); Glucose 107 mg/dL (70-105); Osmolality,Calculated 296 (280-300); Potassium 3.6 mEq/L (3.5-5.1); Sodium 142 mEq/L (136-145); Total Protein 5.1 g/dL (6.4-8.9); eGFR For African Americans > 60 (> 60); eGFR For Non-African Americans > 60 (> 60)
[2018-03-28] MEDS: *HR* Enoxaparin 40 MG/0.4 ML SYRINGE SQ SCH (05:00)
[2018-03-28] MEDS: Thiamine (B-1) 100 MG TABLET PO SCH (08:21)
[2018-03-28] MEDS: cloNIDine HCl 0.1 MG TABLET PO SCH ×2 (08:21→20:39)
[2018-03-28] MEDS: Folic Acid 1 MG TABLET PO SCH (08:21)
[2018-03-28] MEDS: Nicotine 21 MG PATCH.TD24 TD SCH (08:21)
[2018-03-28] MEDS: Vitamin B Complex/Vit C/Vit E 1 EACH TABLET PO SCH (08:21)
--- NOTE | 2018-03-28 11:19 | Internal Med Progress Note ---
Addendum entered and electronically signed by Pallavi Morales DO 03/28/18 14 :22: Patient no longer taking aspirin at this time Original Note: <Pallavi Morales - Last Filed: 03/28/18 11:16> Date of Encounter: 03/28/18 Time of Encounter: 11:16 - Assessment and plan (1) Syncope Current Visit: Yes Status: Resolved Assessment and plan: Pt's Syncope seems to be more like vasovagal reaction / ortho static / alcohol intoxication trops are negative x 3 Cont ASA Echo EF 65-70% with mild LV diastolic dysfunction Qualifiers: Syncope type: unspecified Qualified Code(s): R55 - Syncope and collapse (2) Chest pain Current Visit: Yes Status: Resolved Assessment and plan: Atypical no acute EKG changes noticed Cont him on tele Negative troponin Qualifiers: Chest pain type: unspecified Qualified Code(s): R07.9 - Chest pain, unspecified (3) Alcohol intoxication Current Visit: Yes Status: Acute Assessment and plan: currently he is an active DTs with tremors, shakiness and anxiety Cont him on CIWA protocol Cont Librium 50g Q6hr YOLI, continue clonidine PO Thiamine and Folic acid Improved LFT's Qualifiers: Complication of substance-induced condition: uncomplicated Qualified Code(s ): F10.920 - Alcohol use, unspecified with intoxication, uncomplicated (4) Alcohol dependence Current Visit: Yes Status: Acute Assessment and plan: Patient is willing to go to rehab social media marketing specialist consulted to help the patient about alcohol rehab centers Qualifiers: Substance use status: with intoxication Complication of substance-induced condition: uncomplicated Qualified Code(s): F10.220 - Alcohol dependence with intoxication, uncomplicated (5) Tobacco dependence Current Visit: Yes Status: Acute Assessment and plan: placed on nicotine patch - Time Spent With Patient Total time spent is greater than 50% in coordination of care (as documented) at patient's floor/unit and/or counseling patient: - Subjective Interval history: Patient states he is still having baseline anxiety but otherwise feeling good today. No new concerns or complaints. - Constitutional Vitals: Temp Pulse Resp BP Pulse Ox 98.2 F 63 17 173/93 92 03/28/18 06:45 03/28/18 06:45 03/28/18 06:45 03/28/18 06:45 03/28/18 06:45 General appearance: Present: cooperative, mild distress, A&O X 3, answers questions appropriately - Respiratory Respiratory exam: Present: CTAB. Absent: accessory muscle use, respiratory distress - Cardiovascular Cardiovascular exam: Present: RRR - GI/Abdominal GI/Abdominal exam: Present: soft. Absent: rebound, rigid, tenderness - Extremities Exam Extremities exam: Present: warm. Absent: tenderness - Neurological Exam Neurological exam: Present: alert, no focal deficits Internal Medicine: Result - Labs CBC & Chem 7: 03/28/18 03:24 03/28/18 03:24 Labs: Short CBC 03/28/18 Range/Units 03:24 WBC 7.2 (4.3-11.1) K/mcL Hgb 13.0 (12.9-16.9) g/dL Hct 37.5 (37.5-50.1) % Plt Count 97 L (140-400) K/mcL Neutrophils # 3.8 (1.6-8.9) K/mcL BMP 03/28/18 03:24 Sodium 142 Potassium 3.6 Chloride 110 H Carbon Dioxide 25 BUN 17 Creatinine 0.60 L Glucose 107 H Calcium 8.5 L Liver Function 03/28/18 Range/Units 03:24 Total Bilirubin 0.5 (0.3-1.0) mg/dL AST 35 (13-39) Units/L ALT 34 (7-52) Units/L Alkaline Phosphatase 82 (34-104) Units/L Albumin 2.8 L (3.5-5.7) g/dL - ABG Interpretation ABG results: PT/INR, D-dimer PT 11.8 Seconds (9.4-12.1) 03/26/18 04:48 D-Dimer 1045 ng/mLFEU (0-500) H 03/25/18 10:15 Consult Discharge Plan - Plan Referrals: Darlene Spears DO [Resident] - 04/10/18 2:00 pm <Jose Rafael Ortega - Last Filed: 03/28/18 17:49> Date of Encounter: 03/28/18 - Assessment and plan (1) Alcohol withdrawal Current Visit: Yes Status: Acute Qualifiers: Complication of substance-induced condition: uncomplicated Qualified Code(s ): F10.230 - Alcohol dependence with withdrawal, uncomplicated (2) Alcohol dependence Current Visit: Yes Status: Acute Qualifiers: Substance use status: with intoxication Complication of substance-induced condition: uncomplicated Qualified Code(s): F10.220 - Alcohol dependence with intoxication, uncomplicated (3) Syncope Current Visit: Yes Status: Resolved Qualifiers: Syncope type: unspecified Qualified Code(s): R55 - Syncope and collapse (4) Chest pain Current Visit: Yes Status: Resolved Qualifiers: Chest pain type: unspecified Qualified Code(s): R07.9 - Chest pain, unspecified (5) Tobacco dependence Current Visit: Yes Status: Acute (6) Hypertension Current Visit: Yes Status: Chronic Qualifiers: Hypertension type: essential hypertension Qualified Code(s): I10 - Essential (primary) hypertension (7) Severe protein-calorie malnutrition Current Visit: Yes Status: Chronic - Time Spent With Patient Total time spent is greater than 50% in coordination of care (as documented) at patient's floor/unit and/or counseling patient: - Constitutional Vitals: Temp Pulse Resp BP Pulse Ox 98.3 F 83 19 136/93 96 03/28/18 15:47 03/28/18 15:47 03/28/18 15:47 03/28/18 15:47 03/28/18 15:47 Internal Medicine: Result - Labs CBC & Chem 7: 03/28/18 03:24 03/28/18 03:24 Labs: Short CBC 03/28/18 Range/Units 03:24 WBC 7.2 (4.3-11.1) K/mcL Hgb 13.0 (12.9-16.9) g/dL Hct 37.5 (37.5-50.1) % Plt Count 97 L (140-400) K/mcL Neutrophils # 3.8 (1.6-8.9) K/mcL BMP 03/28/18 03:24 Sodium 142 Potassium 3.6 Chloride 110 H Carbon Dioxide 25 BUN 17 Creatinine 0.60 L Glucose 107 H Calcium 8.5 L Liver Function 03/28/18 Range/Units 03:24 Total Bilirubin 0.5 (0.3-1.0) mg/dL AST 35 (13-39) Units/L ALT 34 (7-52) Units/L Alkaline Phosphatase 82 (34-104) Units/L Albumin 2.8 L (3.5-5.7) g/dL - ABG Interpretation ABG results: PT/INR, D-dimer PT 11.8 Seconds (9.4-12.1) 03/26/18 04:48 D-Dimer 1045 ng/mLFEU (0-500) H 03/25/18 10:15 - Attending Attestation I examined this patient and my medical decision-making was reviewed with the Resident Physician on 03/28/18. I agree with the documented findings, disposition and treatment plan as described except to the extent set forth below. Mr Hernandez is currently admitted for acute ETOH abuse and withdrawal. He remains moderate to high risk due to potential for worsening clinical status. Mr Hernandez is not needing Ativan today. He started Clonidine yesterday. No fever or chills. No GI issues. Exam alert Comfortable at this time. Mucus membranes dry Heart not tachy No wheeze Abd soft I/P 1. ETOH abuse and withdrawal Taper Librium Further diagnoses and plan as above.
[2018-03-28] MEDS: *HR* LORazepam 2 MG/ML VIAL IVP PRN (20:45)
[2018-03-29] MEDS: *HR* LORazepam 2 MG/ML VIAL IVP PRN ×3 (02:31→17:31)
[2018-03-29 05:25] LABS: Basophils % 0.8 %; Mean Platelet Volume 10.4 fL (9.4-12.4); Red Blood Count 4.13 M/mcL (4.19-5.50); Segmented Neutrophils % 53.6 %
[2018-03-29 05:27] LABS: Basophils # 0.1 K/mcL (0.0-0.2); Eosinophils # 0.2 K/mcL (0.0-0.6); Hematocrit 40.5 % (37.5-50.1); Hemoglobin 13.6 g/dL (12.9-16.9); Immature Granulocytes % 2.2 % (0-4); Immature Platelets 3.7 % (1.1-6.1); Lymphocytes # 3.2 K/mcL (0.6-4.6); Lymphocytes % 35.1 %; Mean Corpuscular HGB Conc 33.6 g/dL (31.6-35.5); Mean Corpuscular Hemoglobin 32.9 pg (28.0-33.3); Mean Corpuscular Volume 98.1 fL (83.0-100.0); Monocytes # 0.6 K/mcL (0.0-1.3); Monocytes % 6.3 %; Neutrophils # 4.8 K/mcL (1.6-8.9); Nucleated Red Blood Cells 0.6 /100 WBC (0)
[2018-03-29 05:36] LABS: Alanine Aminotransferase 46 Units/L (7-52); Albumin 2.9 g/dL (3.5-5.7); Albumin/Globulin Ratio 1.1 (1.1-2.2); Alkaline Phosphatase 80 Units/L (34-104); Aspartate Amino Transferase 43 Units/L (13-39); BUN/Creatinine Ratio 26 (6-26); Bilirubin,Total 0.5 mg/dL (0.3-1.0); Blood Urea Nitrogen 16 mg/dL (8-23); Calcium 8.6 mg/dL (8.6-10.3); Carbon Dioxide 24 mEq/L (23-29); Chloride 110 mEq/L (98-107); Globulin 2.6 g/dL (2.4-3.5); Glucose 130 mg/dL (70-105); Osmolality,Calculated 295 (280-300); Potassium 3.8 mEq/L (3.5-5.1); Sodium 141 mEq/L (136-145); Total Protein 5.5 g/dL (6.4-8.9); eGFR For African Americans > 60 (> 60); eGFR For Non-African Americans > 60 (> 60)
[2018-03-29 05:39] LABS: Platelet Count 94 K/mcL (140-400)
[2018-03-29] MEDS: *HR* Enoxaparin 40 MG/0.4 ML SYRINGE SQ SCH (05:42)
--- NOTE | 2018-03-29 09:49 | Internal Med Progress Note ---
<Pallavi Morales - Last Filed: 03/29/18 09:47> Date of Encounter: 03/29/18 Time of Encounter: 09:47 - Assessment and plan (1) Syncope Current Visit: Yes Status: Resolved Assessment and plan: Pt's Syncope seems to be more like vasovagal reaction / ortho static / alcohol intoxication trops are negative x 3 Echo EF 65-70% with mild LV diastolic dysfunction Qualifiers: Syncope type: unspecified Qualified Code(s): R55 - Syncope and collapse (2) Chest pain Current Visit: Yes Status: Resolved Assessment and plan: Atypical no acute EKG changes noticed Cont him on tele Negative troponin Qualifiers: Chest pain type: unspecified Qualified Code(s): R07.9 - Chest pain, unspecified (3) Alcohol intoxication Current Visit: Yes Status: Acute Assessment and plan: currently he is an active DTs with anxiety Cont him on CIWA protocol Decreased Librium to 25 mg 4 times a day PO Thiamine and Folic acid Improved LFT's clonidine BID Qualifiers: Complication of substance-induced condition: uncomplicated Qualified Code(s ): F10.920 - Alcohol use, unspecified with intoxication, uncomplicated (4) Alcohol dependence Current Visit: Yes Status: Chronic Assessment and plan: Patient is willing to go to rehab social director consulted to help the patient about alcohol rehab centers Qualifiers: Substance use status: with intoxication Complication of substance-induced condition: uncomplicated Qualified Code(s): F10.220 - Alcohol dependence with intoxication, uncomplicated (5) Tobacco dependence Current Visit: Yes Status: Acute Assessment and plan: placed on nicotine patch - Time Spent With Patient Total time spent is greater than 50% in coordination of care (as documented) at patient's floor/unit and/or counseling patient: - Subjective Interval history: Patient states he is still having baseline anxiety but otherwise feeling good today. No new concerns or complaints. Needed 1 mg when necessary Ativan last night but did not trigger CIWA protocol. - Constitutional Vitals: Temp Pulse Resp BP Pulse Ox 98.1 F 65 14 122/92 94 03/29/18 07:00 03/29/18 07:00 03/29/18 07:00 03/29/18 07:00 03/29/18 07:00 General appearance: Present: cooperative, A&O X 3, no acute distress, answers questions appropriately - Head Head exam: Present: atraumatic, normal inspection, normocephalic - Respiratory Respiratory exam: Present: CTAB. Absent: accessory muscle use, respiratory distress - Cardiovascular Cardiovascular exam: Present: RRR - GI/Abdominal GI/Abdominal exam: Present: soft. Absent: rebound, rigid, tenderness - Extremities Exam Extremities exam: Present: warm. Absent: tenderness - Neurological Exam Neurological exam: Present: alert, no focal deficits Internal Medicine: Result - Labs CBC & Chem 7: 03/29/18 04:59 03/29/18 04:59 Labs: Short CBC 03/29/18 Range/Units 04:59 WBC 9.0 (4.3-11.1) K/mcL Hgb 13.6 (12.9-16.9) g/dL Hct 40.5 (37.5-50.1) % Plt Count 94 L (140-400) K/mcL Neutrophils # 4.8 (1.6-8.9) K/mcL BMP 03/29/18 04:59 Sodium 141 Potassium 3.8 Chloride 110 H Carbon Dioxide 24 BUN 16 Creatinine 0.61 L Glucose 130 H Calcium 8.6 Liver Function 03/29/18 Range/Units 04:59 Total Bilirubin 0.5 (0.3-1.0) mg/dL AST 43 H (13-39) Units/L ALT 46 (7-52) Units/L Alkaline Phosphatase 80 (34-104) Units/L Albumin 2.9 L (3.5-5.7) g/dL - ABG Interpretation ABG results: PT/INR, D-dimer PT 11.8 Seconds (9.4-12.1) 03/26/18 04:48 D-Dimer 1045 ng/mLFEU (0-500) H 03/25/18 10:15 Consult Discharge Plan - Plan Referrals: Darlene Spears DO [Resident] - 04/10/18 2:00 pm <Zbigniew Anderson - Last Filed: 03/29/18 16:16> Date of Encounter: 03/29/18 - Time Spent With Patient Total time spent is greater than 50% in coordination of care (as documented) at patient's floor/unit and/or counseling patient: - Constitutional Vitals: Temp Pulse Resp BP Pulse Ox 98.3 F 65 17 141/84 94 03/29/18 15:12 03/29/18 15:12 03/29/18 15:12 03/29/18 15:12 03/29/18 15:12 Internal Medicine: Result - Labs CBC & Chem 7: 03/29/18 04:59 03/29/18 04:59 Labs: Short CBC 03/29/18 Range/Units 04:59 WBC 9.0 (4.3-11.1) K/mcL Hgb 13.6 (12.9-16.9) g/dL Hct 40.5 (37.5-50.1) % Plt Count 94 L (140-400) K/mcL Neutrophils # 4.8 (1.6-8.9) K/mcL BMP 03/29/18 04:59 Sodium 141 Potassium 3.8 Chloride 110 H Carbon Dioxide 24 BUN 16 Creatinine 0.61 L Glucose 130 H Calcium 8.6 Liver Function 03/29/18 Range/Units 04:59 Total Bilirubin 0.5 (0.3-1.0) mg/dL AST 43 H (13-39) Units/L ALT 46 (7-52) Units/L Alkaline Phosphatase 80 (34-104) Units/L Albumin 2.9 L (3.5-5.7) g/dL - ABG Interpretation ABG results: PT/INR, D-dimer PT 11.8 Seconds (9.4-12.1) 03/26/18 04:48 D-Dimer 1045 ng/mLFEU (0-500) H 03/25/18 10:15 - Attending Attestation I saw and examined this patient independently, and my medical decision making was reviewed with the Resident on 2017. I agree with the documented findings, assessment and treatment plan as described in the progress note or discharge summary. Patient complaining of hallucination and seeding animals in the room. He also would like to get up and walk. We will add Zyprexa for anti-hallucination and consult physical therapy.
[2018-03-29] MEDS: cloNIDine HCl 0.1 MG TABLET PO SCH ×2 (09:50→21:13)
[2018-03-29] MEDS: Nicotine 21 MG PATCH.TD24 TD SCH (09:50)
[2018-03-29] MEDS: Vitamin B Complex/Vit C/Vit E 1 EACH TABLET PO SCH (09:50)
[2018-03-29] MEDS: Folic Acid 1 MG TABLET PO SCH (09:50)
[2018-03-29] MEDS: Thiamine (B-1) 100 MG TABLET PO SCH (09:50)
[2018-03-29] MEDS: Melatonin 3 MG TABLET PO SCH (21:13)
[2018-03-29] MEDS: OLANZapine 5 MG TAB.RAPDIS PO SCH (21:13)
[2018-03-30] MEDS: *HR* Enoxaparin 40 MG/0.4 ML SYRINGE SQ SCH (05:38)
[2018-03-30 05:56] LABS: Basophils # 0.1 K/mcL (0.0-0.2); Basophils % 0.8 %; Eosinophils # 0.2 K/mcL (0.0-0.6); Eosinophils % 1.8 %; Hematocrit 38.2 % (37.5-50.1); Hemoglobin 12.8 g/dL (12.9-16.9); Immature Granulocytes % 2.3 % (0-4); Immature Platelets 4.7 % (1.1-6.1); Lymphocytes # 3.4 K/mcL (0.6-4.6); Lymphocytes % 32.3 %; Mean Corpuscular HGB Conc 33.5 g/dL (31.6-35.5); Mean Corpuscular Hemoglobin 33.1 pg (28.0-33.3); Mean Corpuscular Volume 98.7 fL (83.0-100.0); Mean Platelet Volume 10.3 fL (9.4-12.4); Monocytes # 0.7 K/mcL (0.0-1.3); Monocytes % 6.6 %; Neutrophils # 5.9 K/mcL (1.6-8.9); Platelet Count 101 K/mcL (140-400); Red Blood Count 3.87 M/mcL (4.19-5.50); Red Cell Distribution Width 16.3 % (11.5-14.5); Segmented Neutrophils % 56.2 %
[2018-03-30 06:12] LABS: Alanine Aminotransferase 52 Units/L (7-52); Albumin 2.9 g/dL (3.5-5.7); Albumin/Globulin Ratio 1.1 (1.1-2.2); Alkaline Phosphatase 82 Units/L (34-104); Aspartate Amino Transferase 42 Units/L (13-39); BUN/Creatinine Ratio 23 (6-26); Bilirubin,Total 0.5 mg/dL (0.3-1.0); Blood Urea Nitrogen 15 mg/dL (8-23); Calcium 8.6 mg/dL (8.6-10.3); Carbon Dioxide 27 mEq/L (23-29); Chloride 109 mEq/L (98-107); Globulin 2.6 g/dL (2.4-3.5); Glucose 115 mg/dL (70-105); Osmolality,Calculated 292 (280-300); Sodium 140 mEq/L (136-145); Total Protein 5.5 g/dL (6.4-8.9); eGFR For African Americans > 60 (> 60); eGFR For Non-African Americans > 60 (> 60)
[2018-03-30] MEDS: Folic Acid 1 MG TABLET PO SCH (09:02)
[2018-03-30] MEDS: cloNIDine HCl 0.1 MG TABLET PO SCH (09:02)
[2018-03-30] MEDS: Thiamine (B-1) 100 MG TABLET PO SCH (09:02)
[2018-03-30] MEDS: Vitamin B Complex/Vit C/Vit E 1 EACH TABLET PO SCH (09:02)
[2018-03-30] MEDS: Nicotine 21 MG PATCH.TD24 TD SCH (09:03)
--- NOTE | 2018-03-30 09:28 | Internal Med Progress Note ---
<Pallavi Morales - Last Filed: 03/30/18 09:26> Date of Encounter: 03/30/18 Time of Encounter: 09:26 - Assessment and plan (1) Syncope Current Visit: Yes Status: Resolved Assessment and plan: Pt's Syncope seems to be more like vasovagal reaction / ortho static / alcohol intoxication trops are negative x 3 Echo EF 65-70% with mild LV diastolic dysfunction Qualifiers: Syncope type: unspecified Qualified Code(s): R55 - Syncope and collapse (2) Chest pain Current Visit: Yes Status: Resolved Assessment and plan: Atypical no acute EKG changes noticed Cont him on tele Negative troponin Qualifiers: Chest pain type: unspecified Qualified Code(s): R07.9 - Chest pain, unspecified (3) Alcohol intoxication Current Visit: Yes Status: Acute Assessment and plan: Cont him on CIWA protocol Decreased Librium to 25 mg 3 times a day PO Thiamine and Folic acid Improved LFT's clonidine BID Qualifiers: Complication of substance-induced condition: uncomplicated Qualified Code(s ): F10.920 - Alcohol use, unspecified with intoxication, uncomplicated (4) Alcohol dependence Current Visit: Yes Status: Chronic Assessment and plan: Patient is willing to go to rehab health and social care teacher consulted to help the patient about alcohol rehab centers Qualifiers: Substance use status: with intoxication Complication of substance-induced condition: uncomplicated Qualified Code(s): F10.220 - Alcohol dependence with intoxication, uncomplicated (5) Tobacco dependence Current Visit: Yes Status: Acute Assessment and plan: placed on nicotine patch - Time Spent With Patient Total time spent is greater than 50% in coordination of care (as documented) at patient's floor/unit and/or counseling patient: - Subjective Interval history: Patient states he is feeling better today. Reduced anxiety. Slept well last night. Eating and drinking without difficulty. - Constitutional Vitals: Temp Pulse Resp BP Pulse Ox 97.8 F 51 17 157/88 96 03/30/18 06:54 03/30/18 06:54 03/30/18 06:54 03/30/18 06:54 03/30/18 06:54 General appearance: Present: cooperative, A&O X 3, no acute distress, answers questions appropriately - Head Head exam: Present: atraumatic, normal inspection, normocephalic - Respiratory Respiratory exam: Present: CTAB. Absent: accessory muscle use, rales, rhonchi, wheezes - Cardiovascular Cardiovascular exam: Present: RRR, +S1, +S2. Absent: diastolic murmur, gallop, rubs, systolic murmur - GI/Abdominal GI/Abdominal exam: Present: normal bowel sounds, soft, no peritoneal signs. Absent: distended, tenderness - Neurological Exam Neurological exam: Present: alert, oriented X3, no focal deficits Internal Medicine: Result - Labs CBC & Chem 7: 03/30/18 05:12 03/30/18 05:12 Labs: Short CBC 03/30/18 Range/Units 05:12 WBC 10.5 (4.3-11.1) K/mcL Hgb 12.8 L (12.9-16.9) g/dL Hct 38.2 (37.5-50.1) % Plt Count 101 L (140-400) K/mcL Neutrophils # 5.9 (1.6-8.9) K/mcL BMP 03/30/18 05:12 Sodium 140 Potassium 4.0 Chloride 109 H Carbon Dioxide 27 BUN 15 Creatinine 0.64 L Glucose 115 H Calcium 8.6 Liver Function 03/30/18 Range/Units 05:12 Total Bilirubin 0.5 (0.3-1.0) mg/dL AST 42 H (13-39) Units/L ALT 52 (7-52) Units/L Alkaline Phosphatase 82 (34-104) Units/L Albumin 2.9 L (3.5-5.7) g/dL - ABG Interpretation ABG results: PT/INR, D-dimer PT 11.8 Seconds (9.4-12.1) 03/26/18 04:48 D-Dimer 1045 ng/mLFEU (0-500) H 03/25/18 10:15 Consult Discharge Plan - Plan Referrals: Darlene Spears DO [Resident] - 04/10/18 2:00 pm <Zbigniew Anderson - Last Filed: 03/30/18 16:15> Date of Encounter: 03/30/18 - Time Spent With Patient Total time spent is greater than 50% in coordination of care (as documented) at patient's floor/unit and/or counseling patient: - Constitutional Vitals: Temp Pulse Resp BP Pulse Ox 98.1 F 75 16 127/88 96 06/08/18 15:51 03/30/18 15:51 03/30/18 15:51 03/30/18 15:51 03/30/18 15:51 Internal Medicine: Result - Labs CBC & Chem 7: 03/30/18 05:12 03/30/18 05:12 Labs: Short CBC 03/30/18 Range/Units 05:12 WBC 10.5 (4.3-11.1) K/mcL Hgb 12.8 L (12.9-16.9) g/dL Hct 38.2 (37.5-50.1) % Plt Count 101 L (140-400) K/mcL Neutrophils # 5.9 (1.6-8.9) K/mcL BMP 03/30/18 05:12 Sodium 140 Potassium 4.0 Chloride 109 H Carbon Dioxide 27 BUN 15 Creatinine 0.64 L Glucose 115 H Calcium 8.6 Liver Function 03/30/18 Range/Units 05:12 Total Bilirubin 0.5 (0.3-1.0) mg/dL AST 42 H (13-39) Units/L ALT 52 (7-52) Units/L Alkaline Phosphatase 82 (34-104) Units/L Albumin 2.9 L (3.5-5.7) g/dL - ABG Interpretation ABG results: PT/INR, D-dimer PT 11.8 Seconds (9.4-12.1) 03/26/18 04:48 D-Dimer 1045 ng/mLFEU (0-500) H 03/25/18 10:15 - Attending Attestation I saw and examined this patient independently, and my medical decision making was reviewed with the Resident on 2017. I agree with the documented findings, assessment and treatment plan as described in the progress note .
[2018-03-30] MEDS: OLANZapine 5 MG TAB.RAPDIS PO SCH (21:06)
[2018-03-30] MEDS: Melatonin 3 MG TABLET PO SCH (21:06)
[2018-03-31] MEDS: *HR* Enoxaparin 40 MG/0.4 ML SYRINGE SQ SCH (05:57)
[2018-03-31 06:15] LABS: Immature Granulocytes % 2.9 % (0-4)
[2018-03-31 06:17] LABS: Basophils # 0.1 K/mcL (0.0-0.2); Basophils % 0.8 %; Eosinophils # 0.2 K/mcL (0.0-0.6); Eosinophils % 1.5 %; Hematocrit 38.6 % (37.5-50.1); Immature Platelets 4.6 % (1.1-6.1); Lymphocytes % 24.8 %; Mean Corpuscular HGB Conc 33.7 g/dL (31.6-35.5); Mean Corpuscular Hemoglobin 33.2 pg (28.0-33.3); Mean Corpuscular Volume 98.5 fL (83.0-100.0); Mean Platelet Volume 10.4 fL (9.4-12.4); Monocytes # 1.2 K/mcL (0.0-1.3); Monocytes % 9.4 %; Platelet Count 106 K/mcL (140-400); Red Blood Count 3.92 M/mcL (4.19-5.50); Red Cell Distribution Width 16.1 % (11.5-14.5); Segmented Neutrophils % 60.6 %
[2018-03-31 06:19] LABS: Lymphocytes # 3.1 K/mcL (0.6-4.6); Neutrophils # 7.5 K/mcL (1.6-8.9)
[2018-03-31 06:36] LABS: Alanine Aminotransferase 51 Units/L (7-52); Albumin/Globulin Ratio 1.1 (1.1-2.2); Alkaline Phosphatase 81 Units/L (34-104); Aspartate Amino Transferase 31 Units/L (13-39); BUN/Creatinine Ratio 26 (6-26); Bilirubin,Total 0.5 mg/dL (0.3-1.0); Blood Urea Nitrogen 16 mg/dL (8-23); Calcium 8.7 mg/dL (8.6-10.3); Carbon Dioxide 27 mEq/L (23-29); Chloride 107 mEq/L (98-107); Globulin 2.7 g/dL (2.4-3.5); Glucose 123 mg/dL (70-105); Osmolality,Calculated 291 (280-300); Potassium 4.2 mEq/L (3.5-5.1); Sodium 139 mEq/L (136-145); Total Protein 5.7 g/dL (6.4-8.9); eGFR For African Americans > 60 (> 60); eGFR For Non-African Americans > 60 (> 60)
--- NOTE | 2018-03-31 09:33 | Internal Med Progress Note ---
<Pallavi Morales - Last Filed: 03/31/18 09:31> Date of Encounter: 03/31/18 Time of Encounter: 09:31 - Assessment and plan (1) Syncope Current Visit: Yes Status: Resolved Assessment and plan: Pt's Syncope seems to be more like vasovagal reaction / ortho static / alcohol intoxication trops are negative x 3 Echo EF 65-70% with mild LV diastolic dysfunction Qualifiers: Syncope type: unspecified Qualified Code(s): R55 - Syncope and collapse (2) Chest pain Current Visit: Yes Status: Resolved Assessment and plan: Atypical no acute EKG changes noticed Cont him on tele Negative troponin Qualifiers: Chest pain type: unspecified Qualified Code(s): R07.9 - Chest pain, unspecified (3) Alcohol intoxication Current Visit: Yes Status: Acute Assessment and plan: Cont him on CIWA protocol Decreased Librium to 25 mg 2 times a day PO Thiamine and Folic acid Improved LFT's Qualifiers: Complication of substance-induced condition: uncomplicated Qualified Code(s ): F10.920 - Alcohol use, unspecified with intoxication, uncomplicated (4) Alcohol dependence Current Visit: Yes Status: Chronic Assessment and plan: Social work is consulted on the patient. Unfortunately due to patient's insurance status he will not be able to go to rehabilitation. Patient was given outpatient resources Qualifiers: Substance use status: with intoxication Complication of substance-induced condition: uncomplicated Qualified Code(s): F10.220 - Alcohol dependence with intoxication, uncomplicated (5) Tobacco dependence Current Visit: Yes Status: Acute Assessment and plan: placed on nicotine patch - Time Spent With Patient Total time spent is greater than 50% in coordination of care (as documented) at patient's floor/unit and/or counseling patient: - Subjective Interval history: Patient states he is feeling good today. Eating and drinking without difficulty. Patient describes minimal shaking. - Constitutional Vitals: Temp Pulse Resp BP Pulse Ox 97.6 F 60 16 135/85 94 03/31/18 06:57 03/31/18 06:57 03/31/18 06:57 03/31/18 06:57 03/31/18 06:57 General appearance: Present: cooperative, A&O X 3, no acute distress, answers questions appropriately - Head Head exam: Present: atraumatic, normocephalic - Respiratory Respiratory exam: Present: CTAB. Absent: accessory muscle use, rales, rhonchi, wheezes - Cardiovascular Cardiovascular exam: Present: RRR, +S1, +S2. Absent: diastolic murmur, gallop, rubs, systolic murmur - GI/Abdominal GI/Abdominal exam: Present: normal bowel sounds, soft, no peritoneal signs. Absent: distended, tenderness - Neurological Exam Neurological exam: Present: alert, no focal deficits Internal Medicine: Result - Labs CBC & Chem 7: 03/31/18 05:55 03/31/18 05:55 Labs: Short CBC 03/31/18 Range/Units 05:55 WBC 12.3 H (4.3-11.1) K/mcL Hgb 13.0 (12.9-16.9) g/dL Hct 38.6 (37.5-50.1) % Plt Count 106 L (140-400) K/mcL Neutrophils # 7.5 (1.6-8.9) K/mcL BMP 03/31/18 05:55 Sodium 139 Potassium 4.2 Chloride 107 Carbon Dioxide 27 BUN 16 Creatinine 0.62 L Glucose 123 H Calcium 8.7 Liver Function 03/31/18 Range/Units 05:55 Total Bilirubin 0.5 (0.3-1.0) mg/dL AST 31 (13-39) Units/L ALT 51 (7-52) Units/L Alkaline Phosphatase 81 (34-104) Units/L Albumin 3.0 L (3.5-5.7) g/dL - ABG Interpretation ABG results: PT/INR, D-dimer PT 11.8 Seconds (9.4-12.1) 03/26/18 04:48 D-Dimer 1045 ng/mLFEU (0-500) H 03/25/18 10:15 Consult Discharge Plan - Plan Referrals: Darlene Spears DO [Resident] - 04/10/18 2:00 pm <Zbigniew Anderson - Last Filed: 03/31/18 14:25> Date of Encounter: 03/31/18 - Time Spent With Patient Total time spent is greater than 50% in coordination of care (as documented) at patient's floor/unit and/or counseling patient: - Constitutional Vitals: Temp Pulse Resp BP Pulse Ox 99.1 F 73 16 128/89 96 03/31/18 11:09 03/31/18 11:09 03/31/18 11:09 03/31/18 11:09 03/31/18 11:09 Internal Medicine: Result - Labs CBC & Chem 7: 03/31/18 05:55 03/31/18 05:55 Labs: Short CBC 03/31/18 Range/Units 05:55 WBC 12.3 H (4.3-11.1) K/mcL Hgb 13.0 (12.9-16.9) g/dL Hct 38.6 (37.5-50.1) % Plt Count 106 L (140-400) K/mcL Neutrophils # 7.5 (1.6-8.9) K/mcL BMP 03/31/18 05:55 Sodium 139 Potassium 4.2 Chloride 107 Carbon Dioxide 27 BUN 16 Creatinine 0.62 L Glucose 123 H Calcium 8.7 Liver Function 03/31/18 Range/Units 05:55 Total Bilirubin 0.5 (0.3-1.0) mg/dL AST 31 (13-39) Units/L ALT 51 (7-52) Units/L Alkaline Phosphatase 81 (34-104) Units/L Albumin 3.0 L (3.5-5.7) g/dL - ABG Interpretation ABG results: PT/INR, D-dimer PT 11.8 Seconds (9.4-12.1) 03/26/18 04:48 D-Dimer 1045 ng/mLFEU (0-500) H 03/25/18 10:15 - Attending Attestation I saw and examined this patient independently, and my medical decision making was reviewed with the Resident on 2017. I agree with the documented findings, assessment and treatment plan as described in the progress note .
[2018-03-31] MEDS: Folic Acid 1 MG TABLET PO SCH (10:06)
[2018-03-31] MEDS: Nicotine 21 MG PATCH.TD24 TD SCH (10:06)
[2018-03-31] MEDS: Thiamine (B-1) 100 MG TABLET PO SCH (10:06)
[2018-03-31] MEDS: Vitamin B Complex/Vit C/Vit E 1 EACH TABLET PO SCH (10:06)
[2018-03-31] MEDS: *HR* Promethazine 25 MG/ML VIAL IVP PRN (11:24)
[2018-03-31] MEDS: Melatonin 3 MG TABLET PO SCH (21:45)
[2018-03-31] MEDS: OLANZapine 5 MG TAB.RAPDIS PO SCH (21:45)
[2018-04-01 05:31] LABS: Basophils # 0.1 K/mcL (0.0-0.2); Basophils % 0.8 %; Eosinophils # 0.2 K/mcL (0.0-0.6); Eosinophils % 1.4 %; Hematocrit 38.5 % (37.5-50.1); Hemoglobin 13.1 g/dL (12.9-16.9); Immature Granulocytes % 4.1 % (0-4); Lymphocytes # 3.2 K/mcL (0.6-4.6); Lymphocytes % 29.9 %; Mean Corpuscular Hemoglobin 33.3 pg (28.0-33.3); Mean Platelet Volume 10.4 fL (9.4-12.4); Monocytes # 1.2 K/mcL (0.0-1.3); Monocytes % 10.9 %; Neutrophils # 5.7 K/mcL (1.6-8.9); Platelet Count 104 K/mcL (140-400); Red Blood Count 3.93 M/mcL (4.19-5.50); Red Cell Distribution Width 16.1 % (11.5-14.5); Segmented Neutrophils % 52.9 %
[2018-04-01 05:47] LABS: BUN/Creatinine Ratio 28 (6-26); Blood Urea Nitrogen 16 mg/dL (8-23); Calcium 8.8 mg/dL (8.6-10.3); Carbon Dioxide 27 mEq/L (23-29); Chloride 107 mEq/L (98-107); Glucose 127 mg/dL (70-105); Osmolality,Calculated 289 (280-300); Potassium 3.9 mEq/L (3.5-5.1); Sodium 138 mEq/L (136-145); eGFR For African Americans > 60 (> 60); eGFR For Non-African Americans > 60 (> 60)
[2018-04-01 06:51] VITALS: BP 158/94
--- NOTE | 2018-04-01 07:56 | Internal Med Progress Note ---
<Pallavi Morales - Last Filed: 04/01/18 07:54> Date of Encounter: 04/01/18 Time of Encounter: 07:54 - Assessment and plan (1) Syncope Current Visit: Yes Status: Resolved Assessment and plan: Pt's Syncope seems to be more like vasovagal reaction / ortho static / alcohol intoxication trops are negative x 3 Echo EF 65-70% with mild LV diastolic dysfunction Qualifiers: Syncope type: unspecified Qualified Code(s): R55 - Syncope and collapse (2) Chest pain Current Visit: Yes Status: Resolved Assessment and plan: Atypical no acute EKG changes noticed Cont him on tele Negative troponin Qualifiers: Chest pain type: unspecified Qualified Code(s): R07.9 - Chest pain, unspecified (3) Alcohol intoxication Current Visit: Yes Status: Acute Assessment and plan: Cont him on [facility] protocol Decreased Librium to 25 mg 1 time a day, plan for discharge tomorrow if patient does well overnight PO Thiamine and Folic acid Improved LFT's Qualifiers: Complication of substance-induced condition: uncomplicated Qualified Code(s ): F10.920 - Alcohol use, unspecified with intoxication, uncomplicated (4) Alcohol dependence Current Visit: Yes Status: Chronic Assessment and plan: Social work is consulted on the patient. Unfortunately due to patient's insurance status he will not be able to go to rehabilitation. Patient was given outpatient resources Qualifiers: Substance use status: with intoxication Complication of substance-induced condition: uncomplicated Qualified Code(s): F10.220 - Alcohol dependence with intoxication, uncomplicated (5) Tobacco dependence Current Visit: Yes Status: Acute Assessment and plan: placed on nicotine patch - Time Spent With Patient Total time spent is greater than 50% in coordination of care (as documented) at patient's floor/unit and/or counseling patient: - Subjective Interval history: Patient states he is feeling significantly better today. Back at baseline. Eating and drinking without difficulty. Good urinary output. Denies any increase in anxiety or shakiness. - Constitutional Vitals: Temp Pulse Resp BP Pulse Ox 97.8 F 60 16 158/94 96 04/01/18 06:47 04/01/18 06:47 04/01/18 04:00 04/01/18 06:47 04/01/18 06:47 General appearance: Present: cooperative, A&O X 3, no acute distress, answers questions appropriately - Head Head exam: Present: atraumatic, normocephalic - Respiratory Respiratory exam: Present: CTAB. Absent: accessory muscle use, rales, rhonchi, wheezes - Cardiovascular Cardiovascular exam: Present: RRR, +S1, +S2. Absent: gallop, rubs - GI/Abdominal GI/Abdominal exam: Present: normal bowel sounds, soft, no peritoneal signs. Absent: distended, tenderness - Neurological Exam Neurological exam: Present: alert, oriented X3, no focal deficits Internal Medicine: Result - Labs CBC & Chem 7: 04/01/18 05:10 04/01/18 05:10 Labs: Short CBC 04/01/18 Range/Units 05:10 WBC 10.7 (4.3-11.1) K/mcL Hgb 13.1 (12.9-16.9) g/dL Hct 38.5 (37.5-50.1) % Plt Count 104 L (140-400) K/mcL Neutrophils # 5.7 (1.6-8.9) K/mcL BMP 04/01/18 05:10 Sodium 138 Potassium 3.9 Chloride 107 Carbon Dioxide 27 BUN 16 Creatinine 0.57 L Glucose 127 H Calcium 8.8 - ABG Interpretation ABG results: PT/INR, D-dimer PT 11.8 Seconds (9.4-12.1) 03/26/18 04:48 D-Dimer 1045 ng/mLFEU (0-500) H 03/25/18 10:15 Consult Discharge Plan - Plan Instructions: Abuse of Alcohol (DC) Additional Instructions: Please continue your home medications. Please reduce Frain from alcohol use. Please continue to use nicotine patch and stop smoking cigarettes. Please closely follow up with her primary care physician in the next 5-7 days. Please return for any new or worsening symptoms. Please use the outpatient resources given to you by social work for your alcohol dependence. Referrals: Darlene Spears DO [Resident] - 04/10/18 2:00 pm <Ayanna Forte - Last Filed: 04/01/18 13:37> Date of Encounter: 04/01/18 - Assessment and plan (1) Syncope Current Visit: Yes Status: Resolved Qualifiers: Syncope type: unspecified Qualified Code(s): R55 - Syncope and collapse (2) Chest pain Current Visit: Yes Status: Resolved Qualifiers: Chest pain type: unspecified Qualified Code(s): R07.9 - Chest pain, unspecified (3) Hypertension Current Visit: Yes Status: Chronic Qualifiers: Hypertension type: essential hypertension Qualified Code(s): I10 - Essential (primary) hypertension (4) Alcohol dependence Current Visit: Yes Status: Chronic Qualifiers: Substance use status: with intoxication Complication of substance-induced condition: uncomplicated Qualified Code(s): F10.220 - Alcohol dependence with intoxication, uncomplicated (5) Tobacco dependence Current Visit: Yes Status: Chronic (6) Alcohol withdrawal Current Visit: Yes Status: Acute Qualifiers: Complication of substance-induced condition: uncomplicated Qualified Code(s ): F10.230 - Alcohol dependence with withdrawal, uncomplicated (7) Severe protein-calorie malnutrition Current Visit: Yes Status: Chronic - Time Spent With Patient Total time spent is greater than 50% in coordination of care (as documented) at patient's floor/unit and/or counseling patient: - Constitutional Vitals: Temp Pulse Resp BP Pulse Ox 97.8 F 60 16 158/94 96 04/01/18 06:47 04/01/18 06:47 04/01/18 04:00 04/01/18 06:47 04/01/18 06:47 Internal Medicine: Result - Labs CBC & Chem 7: 04/01/18 05:10 04/01/18 05:10 Labs: Short CBC 04/01/18 Range/Units 05:10 WBC 10.7 (4.3-11.1) K/mcL Hgb 13.1 (12.9-16.9) g/dL Hct 38.5 (37.5-50.1) % Plt Count 104 L (140-400) K/mcL Neutrophils # 5.7 (1.6-8.9) K/mcL BMP 04/01/18 05:10 Sodium 138 Potassium 3.9 Chloride 107 Carbon Dioxide 27 BUN 16 Creatinine 0.57 L Glucose 127 H Calcium 8.8 - ABG Interpretation ABG results: PT/INR, D-dimer PT 11.8 Seconds (9.4-12.1) 03/26/18 04:48 D-Dimer 1045 ng/mLFEU (0-500) H 03/25/18 10:15 - Attending Attestation I examined this patient and my medical decision-making was reviewed with the Resident Physician Dr. Morales. I agree with the documented findings, disposition and treatment plan as described except to the extent set forth below. Mr. Hernandez is a 62 y/o M with known chronic alcohol dependent pt admitted here for syncope due to alcohol intoxication. Pt was in alcohol withdrawl and DT 's. Today he is alert, awake and O x 3. Denied any CP / SOB. He does not have any tremors. Counseled to quit drinking alcohol. he finished his tapering dose of Librium too. So will d/c him home in stable condition today.
[2018-04-01] MEDS: *HR* Enoxaparin 40 MG/0.4 ML SYRINGE SQ SCH (08:48)
[2018-04-01] MEDS: Thiamine (B-1) 100 MG TABLET PO SCH (08:49)
[2018-04-01] MEDS: Folic Acid 1 MG TABLET PO SCH (08:49)
[2018-04-01] MEDS: Vitamin B Complex/Vit C/Vit E 1 EACH TABLET PO SCH (08:49)
[2018-04-01] MEDS: Nicotine 21 MG PATCH.TD24 TD SCH (08:49)
--- NOTE | 2018-04-01 08:58 | Discharge Summary ---
<Pallavi Morales - Last Filed: 04/01/18 08:53> Date of Encounter: 04/01/18 Time of Encounter: 08:53 - Discharge Diagnosis (1) Syncope Priority: Primary Status: Resolved Qualifiers: Syncope type: unspecified Qualified Code(s): R55 - Syncope and collapse (2) Chest pain Priority: Secondary Status: Resolved Qualifiers: Chest pain type: unspecified Qualified Code(s): R07.9 - Chest pain, unspecified (3) Alcohol intoxication Priority: Secondary Status: Acute Qualifiers: Complication of substance-induced condition: uncomplicated Qualified Code(s ): F10.920 - Alcohol use, unspecified with intoxication, uncomplicated (4) Alcohol dependence Priority: Secondary Status: Chronic Qualifiers: Substance use status: with intoxication Complication of substance-induced condition: uncomplicated Qualified Code(s): F10.220 - Alcohol dependence with intoxication, uncomplicated (5) Tobacco dependence Priority: Secondary Status: Chronic Hospital course: Mr. Hernandez is a 62 year old male with history of chronic alcohol dependence that was in remission till last month presented to the emergency department for syncope and chest pain. Patient was admitted and placed under [facility] protocol. Cardiac workup completed and was within normal limits. Troponin negative. EKG within normal limits. Echo shows ejection fraction of 65-70%. CTA was also completed which showed hepatic cytosis but otherwise within normal limits. CT of the head completed was within normal limits. Patient was admitted for chest pain workup along with syncope which was associated with vasovagal versus alcohol intoxication. Patient was kept as inpatient status for alcohol withdrawal. Patient has been weaned from Librium. Today as patient's last dose of 25 mg. Patient has had no other medical concerns or complaints throughout his stay. Social work was consults it on the case and provided the patient with outpatient resources due to the patient's insurance status he was unable to go to rehabilitation services. - Time Spent with Patient Total time spent providing and/or coordinating discharge services: - Discharge Medications Home Medications: Ibuprofen [Motrin Ib] 400 mg PO Q6-8H PRN 03/25/18 [History] Allergies/Adverse Reactions: 3 Allergy/AdvReac Type Severity Reaction Status Date / Time No Known Allergies Allergy Verified 03/25/18 12:16 Date of admission: 03/25/18 14:07 Primary care physician: PCP NONE Consults: 03/25/18 15:31 Consult to Nutrition [CONS] Routine Comment: Consulting Provider: NUTRITION Reason for Dietary Consult: MST Score 03/29/18 16:13 Consult to Physical Therapy [CONS] Routine Comment: Evaluate, develop and implement POC Reason for Consult: weakness Does patient have active BEDREST order?: No Is patient medically & hemodynamically stable?: Yes Patient assessed for mobility or mobilized this visit?: Yes 03/29/18 16:25 Consult to Occupational Therapy [CONS] Routine Comment: Evaluate, develop and implement POC Reason for Consult: Weakness Does patient have active BEDREST order?: No Is patient medically & hemodynamically stable?: Yes Discharging clinician: Pallavi Morales Anticipated date of discharge: 04/01/18 - Constitutional Vitals: Temp Pulse Resp BP Pulse Ox 97.8 F 60 16 158/94 96 04/01/18 06:47 04/01/18 06:47 04/01/18 04:00 04/01/18 06:47 04/01/18 06:47 General appearance: Present: cooperative, A&O X 3, no acute distress, answers questions appropriately - Head Head exam: Present: atraumatic, normocephalic - Respiratory Respiratory exam: Present: CTAB. Absent: accessory muscle use, rales, rhonchi, wheezes - Cardiovascular Cardiovascular exam: Present: RRR, +S1, +S2. Absent: gallop, rubs - GI/Abdominal GI/Abdominal exam: Present: normal bowel sounds, soft, no peritoneal signs. Absent: distended, tenderness - Neurological Exam Neurological exam: Present: alert, oriented X3, no focal deficits - Patient Status Disposition: Home, Self-Care Condition: Good Functional capacity at discharge: independent ambulation Overall status at discharge: patient is back to baseline - Discharge Instructions Instructions: Abuse of Alcohol (DC) Follow Up With: Darlene Spears DO [Resident] - 04/10/18 2:00 pm Additional Instructions: Please continue your home medications. Please reduce Frain from alcohol use. Please continue to use nicotine patch and stop smoking cigarettes. Please closely follow up with her primary care physician in the next 5-7 days. Please return for any new or worsening symptoms. Please use the outpatient resources given to you by social work for your alcohol dependence. - Diet and Activity Activity: increase activity as tolerated Diet: advance to your usual diet <Thallapaneni,Rambabu - Last Filed: 04/01/18 13:38> Date of Encounter: 04/01/18 - Discharge Diagnosis (1) Syncope Status: Resolved Qualifiers: Syncope type: unspecified Qualified Code(s): R55 - Syncope and collapse (2) Chest pain Status: Resolved Qualifiers: Chest pain type: unspecified Qualified Code(s): R07.9 - Chest pain, unspecified (3) Hypertension Status: Chronic Qualifiers: Hypertension type: essential hypertension Qualified Code(s): I10 - Essential (primary) hypertension (4) Alcohol dependence Status: Chronic Qualifiers: Substance use status: with intoxication Complication of substance-induced condition: uncomplicated Qualified Code(s): F10.220 - Alcohol dependence with intoxication, uncomplicated (5) Tobacco dependence Status: Chronic (6) Alcohol withdrawal Status: Acute Qualifiers: Complication of substance-induced condition: uncomplicated Qualified Code(s ): F10.230 - Alcohol dependence with withdrawal, uncomplicated (7) Severe protein-calorie malnutrition Status: Chronic Hospital course: Mr. Hernandez is a 62 year old male - Time Spent with Patient Total time spent providing and/or coordinating discharge services: Date of admission: 03/25/18 14:07 Primary care physician: PCP NONE Consults: 03/25/18 15:31 Consult to Nutrition [CONS] Routine Comment: Consulting Provider: NUTRITION Reason for Dietary Consult: MST Score 03/29/18 16:13 Consult to Physical Therapy [CONS] Routine Comment: Evaluate, develop and implement POC Reason for Consult: weakness Does patient have active BEDREST order?: No Is patient medically & hemodynamically stable?: Yes Patient assessed for mobility or mobilized this visit?: Yes 03/29/18 16:25 Consult to Occupational Therapy [CONS] Routine Comment: Evaluate, develop and implement POC Reason for Consult: Weakness Does patient have active BEDREST order?: No Is patient medically & hemodynamically stable?: Yes - Constitutional Vitals: Temp Pulse Resp BP Pulse Ox 97.8 F 60 16 158/94 96 04/01/18 06:47 04/01/18 06:47 04/01/18 04:00 04/01/18 06:47 04/01/18 06:47 - Attending Attestation I examined this patient and my medical decision-making was reviewed with the Resident Physician Dr. Morales. I agree with the documented findings, disposition and treatment plan as described except to the extent set forth below. Mr. Hernandez is a 62 y/o M with known chronic alcohol dependent pt admitted here for syncope due to alcohol intoxication. Pt was in alcohol withdrawl and DT 's. Today he is alert, awake and O x 3. Denied any CP / SOB. He does not have any tremors. Counseled to quit drinking alcohol. he finished his tapering dose of Librium too. So will d/c him home in stable condition today.
== END 2018-04-01 15:09 | disposition home or self-care (01) | DRG 896 ==
LOC: EMEROO 09:56 → 2NENU 14:07 → SUATTDRO 14:07 → 2NENU 14:45
PROVIDERS: ADMIT Family Medicine; ATTEND Hospitalist

== ENCOUNTER 2018-04-19 01:40 | Observation (INO) ==
--- NOTE | 2018-04-19 01:55 | Emergency Department Note ---
Disposition Clinical Impression: Weakness of right lower extremity Alcohol intoxication Qualifiers: Complication of substance-induced condition: uncomplicated Qualified Code(s): F10.920 - Alcohol use, unspecified with intoxication, uncomplicated Disposition: Admitted As Inpatient Condition: Undetermined Time of Disposition: 06:27 Alcohol HPI - General Chief Complaint: ED Alcohol Abuse Stated Complaint: intoxicated Time Seen by Provider: 04/19/18 01:42 Source: EMS Mode of arrival: EMS Limitations: altered mental status Nursing Notes Reviewed: Yes Vital Signs Reviewed: Yes - History of Present Illness HPI Narrative: 62-year-old male with unknown medical history arrives to the emergency department intoxicated. Patient states that he thought he was going to so he called EMS. The patient was unclear exactly why he thought he was going to . The patient is a very poor story due to extreme alcohol intoxication. He denies any specific complaints but states that he has not drank in years. He denies any injuries but does state that he did fall once. He is resting comfortably in the room but again is clearly intoxicated. He has no obvious signs of trauma his bed or chest. Exam is otherwise benign. - Related Data Home Medications Medication Instructions Recorded Confirmed Ibuprofen [Motrin Ib] 400 mg PO Q6-8H PRN 03/25/18 03/25/18 Allergies Allergy/AdvReac Type Severity Reaction Status Date / Time No Known Allergies Allergy Verified 03/25/18 12:16 All systems ED: reviewed and negative except as stated. Constitutional: Denies: fever Cardiovascular: Denies: chest pain Respiratory: Denies: dyspnea Gastrointestinal: Denies: abdominal pain, vomiting Musculoskeletal: Denies: back pain, neck pain Integumentary: Denies: rash Neurological: Denies: headache Past Medical History - Past Medical History Source: old records reviewed, obtained from family Medical history: Reports: COPD, other Surgical history: Reports: non-contributory Psychiatric history: Reports: anxiety, depression - Social History Smoking Status: Current every day smoker Smokeless Tobacco Status: No Alcohol use: Reports: heavy, recent Drug use: Reports: none Physical Exam - General Limitations: altered mental status General appearance: appears intoxicated - Head Head exam: atraumatic, normocephalic, normal inspection - Eye Eye exam: Present: normal appearance, PERRL, EOMI - ENT ENT exam: normal exam, normal oropharynx, mucous membranes moist - Neck Neck exam: Present: normal inspection, full ROM, trachea midline - Chest Chest inspection: Present: normal inspection, symmetric chest wall rise - Respiratory Respiratory exam: Present: normal lung sounds bilaterally - Cardiovascular Cardiovascular exam: Present: regular rate, normal rhythm, normal heart sounds - Abdominal Exam Abdominal exam: Present: soft, Non-Tender. Absent: tenderness, distention, guarding, rebound, rigidity - Extremities Exam Extremities exam: Present: normal inspection, full ROM. Absent: tenderness, pedal edema - Neurological Exam Neurological exam: Present: alert - Expanded Neurological Exam Patient oriented to: Present: person, place Speech: Present: fluid speech Motor strength - LUE: 5/5 Motor strength - RUE: 5/5 Motor strength - LLE: 5/5 Motor strength - RLE: 5/5 Coma Scale Eye Opening: Spontaneous Coma Scale Motor Response: Obeys Commands Coma Scale Verbal Response: Oriented Coma Scale Total: 15 - Skin Skin exam: Present: warm, dry, intact, normal color Course - Reevaluation(s) Reevaluation #1: Patient has been medically cleared in the emergency department with the exception of his intoxication. The patient remains intoxicated at this time. We will continue to observe the patient until he is clinically sober and likely discharge the patient home. Time: 03:21 Reevaluation #2: Patient was attempted to ambulate but was unable to ambulate. Upon further questioning the patient states that the reason why he is been falling over the past few days is he is unable to move his right lower extremity well and unable to ambulate. Is not complaining of any pain. X-ray of the pelvis dentures no acute findings. The patient states he has been self-medicating for this. He denies any previous history of CVA. Patient is more lucid at this time and answering questions appropriately. He denies any previous symptoms similar to right lower extremity weakness but he has definitive right lower extremity weakness on examination. He is still able to move his right lower extremity but it is weak compared to the left. Head CT demonstrates no acute process. Patient denies any other complaints at this time. He is resting comfortably in the room. Time: 05:58 Vital Signs Temperature 97.9 F 04/19/18 01:42 Pulse Rate 83 04/19/18 01:42 Respiratory Rate 22 04/19/18 01:42 Blood Pressure 126/89 04/19/18 01:42 O2 Sat by Pulse Oximetry 95 04/19/18 01:42 Temperature 97.9 F 04/19/18 01:42 Pulse Rate 83 04/19/18 06:03 Respiratory Rate 16 04/19/18 06:03 Blood Pressure 133/83 04/19/18 06:03 O2 Sat by Pulse Oximetry 94 04/19/18 06:03 Oxygen Delivery Oxygen Delivery Room Air Alcohol - MDM Narrative Medical decision making narrative: Accepted by Dr. Ruiz. - Lab Data Lab results reviewed: Yes I reviewed the patient's lab results. Result diagrams: 04/19/18 02:11 04/19/18 02:11 Lab Results 04/19/18 04/19/18 04/19/18 Range/Units 02:11 02:11 02:11 WBC 6.1 (4.3-11.1) K/mcL RBC 4.90 (4.19-5.50) M/mcL Hgb 16.9 (12.9-16.9) g/dL Hct 46.8 (37.5-50.1) % MCV 95.5 (83.0-100.0) fL MCH 34.5 H (28.0-33.3) pg MCHC 36.1 H (31.6-35.5) g/dL RDW 15.3 H (11.5-14.5) % Plt Count 130 L (140-400) K/mcL MPV 8.8 L (9.4-12.4) fL Immature Gran % 0.8 (0-4) % Seg Neutrophils % 62.4 % Lymphocytes % 29.6 % Monocytes % 5.4 % Eosinophils % 0.8 % Basophils % 1.0 % Neutrophils # 3.8 (1.6-8.9) K/mcL Lymphocytes # 1.8 (0.6-4.6) K/mcL Monocytes # 0.3 (0.0-1.3) K/mcL Eosinophils # 0.1 (0.0-0.6) K/mcL Basophils # 0.1 (0.0-0.2) K/mcL Sodium 141 (136-145) mEq/L Potassium 3.5 (3.5-5.1) mEq/L Chloride 104 (98-107) mEq/L Carbon Dioxide 22 L (23-29) mEq/L BUN 12 (8-23) mg/dL Creatinine 0.59 L (0.70-1.30) mg/dL Est GFR ( Amer) > 60 (> 60) Est GFR (Non-Af Amer) > 60 (> 60) BUN/Creatinine Ratio 20 (6-26) Glucose 84 (70-105) mg/dL Calculated Osmolality 291 (280-300) Calcium 8.4 L (8.6-10.3) mg/dL Salicylates < 2.5 L (15.0-30.0) mg/dL Acetaminophen < 10 L (10-20) mcg/mL - Radiology Data Radiology results reviewed: Yes I reviewed the patient's radiology results. Cervical Spine CT 04/19/18 01:55 IMPRESSION: Spondylosis with no definite evidence for fracture. D/ / Ken Harding MD / Ken Harding MD Interpreting Provider: Ken Harding MD Head CT 04/19/18 01:55 IMPRESSION: No acute intracranial abnormality. D/ / Ken Harding MD / Ken Harding MD Interpreting Provider: Ken Harding MD Attestation Statement - Attestation Attestation: I examined this patient and my medical decision-making was reviewed with the Resident Physician. I agree with the documented findings, disposition and treatment plan as described except to the extent set forth below. Findings consistent with acute alcohol intoxication. Will observe till clinically sober, no evidence of acute traumatic injuries at this time. Disposition pending sobriety Patient actually is unable to ambulate and it seems his weakness is coming from the right lower extremity. he states the onset was one week ago and that is why he started drinking. His frequent calls are the results of right lower extremity weakness. Patient will be admitted for further evaluation of falls and inability to ambulate.
[2018-04-19 02:19] LABS: Basophils # 0.1 K/mcL (0.0-0.2); Eosinophils # 0.1 K/mcL (0.0-0.6); Eosinophils % 0.8 %; Hematocrit 46.8 % (37.5-50.1); Hemoglobin 16.9 g/dL (12.9-16.9); Immature Granulocytes % 0.8 % (0-4); Lymphocytes # 1.8 K/mcL (0.6-4.6); Lymphocytes % 29.6 %; Mean Corpuscular HGB Conc 36.1 g/dL (31.6-35.5); Mean Corpuscular Hemoglobin 34.5 pg (28.0-33.3); Mean Corpuscular Volume 95.5 fL (83.0-100.0); Mean Platelet Volume 8.8 fL (9.4-12.4); Monocytes # 0.3 K/mcL (0.0-1.3); Monocytes % 5.4 %; Neutrophils # 3.8 K/mcL (1.6-8.9); Platelet Count 130 K/mcL (140-400); Red Cell Distribution Width 15.3 % (11.5-14.5); Segmented Neutrophils % 62.4 %
[2018-04-19 02:43] LABS: Acetaminophen < 10 mcg/mL (10-20); BUN/Creatinine Ratio 20 (6-26); Blood Urea Nitrogen 12 mg/dL (8-23); Calcium 8.4 mg/dL (8.6-10.3); Carbon Dioxide 22 mEq/L (23-29); Chloride 104 mEq/L (98-107); Glucose 84 mg/dL (70-105); Osmolality,Calculated 291 (280-300); Potassium 3.5 mEq/L (3.5-5.1); Salicylate < 2.5 mg/dL (15.0-30.0); Sodium 141 mEq/L (136-145); eGFR For African Americans > 60 (> 60); eGFR For Non-African Americans > 60 (> 60)
[2018-04-19] MEDS ORDERED: Naloxone 0.4 MG/ML INJ IVP PRN (07:36)
[2018-04-19] MEDS ORDERED: *HR* LORazepam 2 MG/ML VIAL IVP PRN ×2 (08:14)
[2018-04-19] MEDS ORDERED: Thiamine (B-1) 100 MG, Folic Acid 1 MG, MVI, adult with vitamin K 10 ML in 0.9 % Sodi... IVPB ONE (08:14)
--- NOTE | 2018-04-19 08:17 | Internal Med History&Physical ---
Date of Encounter: 04/19/18 Time of Encounter: 08:00 Internal Medicine - H&P: HPI Chief complaint: Nausea, vomiting, difficulty ambulating and fall Admitted From: Emergency Dept Plans for Post Hospital Care: Home History of present illness: Mr. Hernandez is a 62 year old male patient with history of hypertension who presented to the ER with complaints of nausea and vomiting and recurrent falls. Patient has been drinking alcohol excessively recently. He complains of left knee pain and he reports that he fell and injured his left hip. He denies any fevers or chills. No chest pain or shortness of breath. He does complain of nausea and vomiting. He reports that his previously had nausea and vomiting to the extent of having upper GI bleeding but this was several years ago. Denies any hematemesis at this time. No dizziness or lightheadedness. No focal weakness or numbness. Past Med Surg Social Fam HX - Past Medical History Attestation: Yes The following information was validated with the patient. Source: patient Medical history: COPD, other Additional medical history: ETOH abuse Psychiatric history: anxiety, depression - Past Surgical History Surgical History: non-contributory - Social History Smoking Status: Current every day smoker Smokeless Tobacco Status: No Alcohol use: heavy, recent Drug use: none - Additional Family History Additional family history: Family history reviewed and found to be noncontributory at this time. Internal Medicine - H&P: Meds Ibuprofen [Motrin Ib] 400 mg PO Q6-8H PRN 03/25/18 [History] 3 Allergy/AdvReac Type Severity Reaction Status Date / Time No Known Allergies Allergy Verified 03/25/18 12:16 All Systems PM: A 10-system review of systems was performed and is negative for pertinent findings except as documented above in the HPI. - Constitutional Constitutional: no chills, no fever(s), no night sweats - EENT Eyes: no change in vision, no discharge, no pain, no photophobia Ears: no ear discharge, no ear pain, no tinnitus Nose, mouth and throat: no dysphagia, no nasal discharge, no neck pain, no sore throat - Cardiovascular Cardiovascular ROS IM: no chest pain, no diaphoresis, no dyspnea, no lightheadedness, no palpitations, no syncope - Respiratory Respiratory: no cough, no dyspnea, no wheezing, no excessive phlegm production - Gastrointestinal Gastrointestinal: nausea, vomiting - Musculoskeletal Musculoskeletal ROS IM: other (Left knee pain), no numbness, no tingling - Neurological Neurological ROS: frequent falls, no confusion, no convulsions, no focal weakness, no numbness, no tingling, no tremor(s) - Hematologic/Lymphatic Hematologic/Lymphatic: no easy bruising - Constitutional Vitals: Temp Pulse Resp BP Pulse Ox 98.1 F 93 16 139/82 92 04/19/18 07:31 04/19/18 07:31 04/19/18 07:31 04/19/18 07:31 04/19/18 07:31 General appearance: Present: cooperative, A&O X 3, answers questions appropriately - Eye Eye exam: Present: EOMI, PERRL, conjuntiva pink, sclera anicteric - ENT Additional comments: Difficulty hearing - Respiratory Respiratory exam: Present: CTAB. Absent: accessory muscle use, rales, rhonchi, wheezes - Cardiovascular Cardiovascular exam: Present: RRR, +S1, +S2. Absent: diastolic murmur, gallop, rubs, systolic murmur - GI/Abdominal GI/Abdominal exam: Present: normal bowel sounds, soft, no peritoneal signs. Absent: distended, tenderness - Extremities Exam Extremities exam: Present: warm, radial pulses palpable and symmetrical. Absent : calf tenderness, cyanotic, pedal edema - Neurological Exam Neurological exam: Present: alert, CN II-XII intact, oriented X3, no focal deficits, strengths equal and symetr throughout. Absent: facial droop, speech deficit - Skin Skin exam: Present: dry, intact Internal Med - H&P Results - Labs CBC & Chem 7: 04/19/18 02:11 04/19/18 02:11 - Impressions Impressions Cervical Spine CT 04/19/18 01:55 IMPRESSION: Spondylosis with no definite evidence for fracture. D/ / Ken Harding MD / Ken Harding MD Interpreting Provider: Ken Harding MD Head CT 04/19/18 01:55 IMPRESSION: No acute intracranial abnormality. D/ / Ken Harding MD / Ken Harding MD Interpreting Provider: Ken Harding MD Pelvis X-Ray 04/19/18 05:39 IMPRESSION: No definite fracture. D/ / Ken Harding MD / Ken Harding MD Interpreting Provider: Ken Hardnig MD - Assessment and plan (1) Nausea and vomiting Current Visit: Yes Status: Acute Assessment and plan: Reports nausea and vomiting. Most likely related to alcoholic gastritis. We will treat symptomatically. IV fluids. Qualifiers: Vomiting type: cyclical vomiting Vomiting Intractability: unspecified Qualified Code(s): G43.A0 - Cyclical vomiting, not intractable (2) Alcohol abuse Current Visit: Yes Status: Acute Assessment and plan: Patient has been drinking alcohol excessively with a past week. Monitor for withdrawal. Thiamine and folic acid supplementation. IV fluids. rigging up worker consult. (3) Generalized weakness Current Visit: Yes Status: Acute Assessment and plan: Difficulty ambulating. Recorded in the ER that the patient had right lower extremity weakness. No weakness perceived on my examination although patient was not ambulated at this time. We will get PT OT to evaluate patient. Further workup based on their evaluation (4) Left knee pain Current Visit: Yes Status: Acute Assessment and plan: Reports acute left knee pain. Will get knee x-ray to evaluate. Qualifiers: Chronicity: acute Qualified Code(s): M25.562 - Pain in left knee - Time Spent With Patient Total time spent is greater than 50% in coordination of care (as documented) at patient's floor/unit and/or counseling patient:
[2018-04-19] MEDS: Folic Acid 1 MG TABLET PO SCH ×2 (08:27→13:20)
[2018-04-19] MEDS: Ringers Solution, Lactated 1,000 ML IVC SCH (08:37)
[2018-04-19] MEDS: Ondansetron 4 MG/2 ML VIAL IVP PRN ×2 (08:37→15:04)
[2018-04-19] MEDS: Thiamine (B-1) 100 MG TABLET PO SCH ×2 (08:38→13:20)
[2018-04-19] MEDS: *HR* LORazepam 2 MG/ML VIAL IVP PRN ×4 (08:38→23:02)
[2018-04-19] MEDS: Pantoprazole 40 MG VIAL IVP SCH (08:46)
[2018-04-19] MEDS ORDERED: Prochlorperazine 10 MG/2 ML VIAL IVP ONE (20:15)
[2018-04-20] MEDS: Ondansetron 4 MG/2 ML VIAL IVP PRN ×3 (00:39→14:41)
[2018-04-20] MEDS: Ringers Solution, Lactated 1,000 ML IVC SCH (00:40)
[2018-04-20] MEDS: *HR* LORazepam 2 MG/ML VIAL IVP PRN ×4 (03:40→23:04)
[2018-04-20 05:58] LABS: Chol/HDL Ratio 3.2 (0-4.9)
[2018-04-20] MEDS: Pantoprazole 40 MG VIAL IVP SCH (07:52)
[2018-04-20] MEDS: Thiamine (B-1) 100 MG TABLET PO SCH (07:53)
[2018-04-20] MEDS: Folic Acid 1 MG TABLET PO SCH (07:53)
[2018-04-20 08:32] LABS: Estimated Average Glucose 114 mg/dl; Hemoglobin A1C 5.6 %
--- NOTE | 2018-04-20 11:05 | Internal Med Progress Note ---
Date of Encounter: 04/20/18 Time of Encounter: 11:02 - Assessment and plan (1) Alcohol withdrawal Current Visit: Yes Status: Acute Assessment and plan: Reports drinking for the last week- week and a half Denies any suicidal/homicidal ideation, denies any auditory or visual hallucinations He reports that he began drinking heavily after the of his mother Reporting a history of alcoholism with multiple relapses States that he has been drinking a 12 pack of beer daily with 1 bottle of vodka in addition to this Reports that his last drink was roughly 48 hours ago Since his last drink is been having nausea/vomiting which is acute, likely alcoholic gastritis. Could also be related to withdrawal In addition, he is also reporting diarrhea and "shakes "; tremulous to exam Continue [facility] protocol IVF Banana bag B-12, thiamine and folate daily Consult manager social work to provide resources for alcohol cessation PT/OT for further evaluation of weakness Daily labs Qualifiers: Complication of substance-induced condition: uncomplicated Qualified Code(s ): F10.230 - Alcohol dependence with withdrawal, uncomplicated (2) Alcohol abuse Current Visit: Yes Status: Acute Assessment and plan: History of alcohol abuse with multiple relapses Been drinking heavily for the last week or more, patient not entirely sure Reports that he has been drinking a 12 pack of beer daily as well as a bottle of vodka Denies any suicidal or homicidal ideation, denies any auditory or visual hallucinations See further assessment and planning above (3) Left knee pain Current Visit: Yes Status: Acute Assessment and plan: Status post fall Imaging negative for fracture Pain improving Qualifiers: Chronicity: acute Qualified Code(s): M25.562 - Pain in left knee (4) Generalized weakness Current Visit: Yes Status: Acute Assessment and plan: Presented with reports of Difficulty ambulating and generalized weakness of bilateral lower extremities However, per my assessment and did not witness the patient ambulating and there is no weakness to bilateral lower extremities The patient does appear to have some fine tremulousness, otherwise nonfocal neurologic exam Weakness is acute and Etiology for weakness is unclear but likely multifactorial , related to alcohol withdrawal, poor nutrition and vomiting/diarrhea Metabolic abnormalities. Review of BMP, TSH WNL at 2.283 troponins negative 4 , no ECG changes concerning for ischemia -PT/OT to evaluate generalized weakness-awaiting further recommendations (5) Nausea and vomiting Current Visit: Yes Status: Acute Assessment and plan: Reports nausea and vomiting prior to admission Most likely related to alcoholic gastritis, but reports that he has not had a drink since Monday04/18/18, symptoms could also be from withdrawal Antiemetics IV fluids [facility] protocol Qualifiers: Vomiting type: cyclical vomiting Vomiting Intractability: unspecified Qualified Code(s): G43.A0 - Cyclical vomiting, not intractable - Time Spent With Patient Total time spent is greater than 50% in coordination of care (as documented) at patient's floor/unit and/or counseling patient: 25 - 35 minutes - Subjective Interval history: Here for ETHO withdrawal, no acute changes over night - Constitutional Vitals: Temp Pulse Resp BP Pulse Ox 98.4 F 90 17 176/99 95 04/20/18 06:39 04/20/18 06:39 04/20/18 06:39 04/20/18 06:39 04/20/18 06:39 General appearance: Present: cooperative, A&O X 3, answers questions appropriately - Head Head exam: Present: atraumatic, normocephalic - Eye Eye exam: Present: PERRL, conjuntiva pink, sclera anicteric Pupils: Present: PERRL - Neck Neck exam general surgery: Present: supple, trachea midline. Absent: lymphadenopathy - Respiratory Respiratory exam: Present: CTAB. Absent: accessory muscle use, rales, rhonchi, wheezes - Cardiovascular Cardiovascular exam: Present: RRR, +S1, +S2. Absent: diastolic murmur, gallop, rubs, systolic murmur - GI/Abdominal GI/Abdominal exam: Present: hyperactive bowel sounds, normal bowel sounds, soft , no peritoneal signs. Absent: distended, firm, guarding, tenderness - Extremities Exam Extremities exam: Present: warm, radial pulses palpable and symmetrical. Absent : calf tenderness, cyanotic, pedal edema - Neurological Exam Neurological exam: Present: alert, oriented X3, no focal deficits. Absent: pronater drift, facial droop, speech deficit - Psychiatric Psychiatric exam: Present: depressed, flat affect. Absent: agitated, anxious, homicidal ideation, manic, suicidal ideation - Skin Skin exam: Present: dry, intact Internal Medicine: Result - Labs CBC & Chem 7: 04/19/18 02:11 04/19/18 02:11 Consult Discharge Plan - Plan Referrals: Darlene Spears DO [Resident] - 05/10/18 2:00 pm
[2018-04-20] MEDS: Nicotine 21 MG PATCH.TD24 TD SCH (16:22)
[2018-04-21] MEDS: Ondansetron 4 MG/2 ML VIAL IVP PRN ×2 (01:42→07:57)
[2018-04-21 01:48] LABS: Immature Granulocytes % 0.6 % (0-4); Red Cell Distribution Width 15.2 % (11.5-14.5)
[2018-04-21 01:50] LABS: Basophils % 0.4 %; Eosinophils # 0.1 K/mcL (0.0-0.6); Eosinophils % 1.4 %; Hematocrit 43.2 % (37.5-50.1); Hemoglobin 15.2 g/dL (12.9-16.9); Immature Platelets 4.5 % (1.1-6.1); Lymphocytes # 1.6 K/mcL (0.6-4.6); Lymphocytes % 19.7 %; Mean Corpuscular HGB Conc 35.2 g/dL (31.6-35.5); Mean Corpuscular Hemoglobin 34.3 pg (28.0-33.3); Mean Corpuscular Volume 97.5 fL (83.0-100.0); Mean Platelet Volume 10.2 fL (9.4-12.4); Monocytes # 0.4 K/mcL (0.0-1.3); Monocytes % 4.8 %; Neutrophils # 6.1 K/mcL (1.6-8.9); Red Blood Count 4.43 M/mcL (4.19-5.50); Segmented Neutrophils % 73.1 %
[2018-04-21 01:52] LABS: Platelet Count 88 K/mcL (140-400)
[2018-04-21 02:07] LABS: BUN/Creatinine Ratio 14 (6-26); Blood Urea Nitrogen 8 mg/dL (8-23); Calcium 9.6 mg/dL (8.6-10.3); Carbon Dioxide 25 mEq/L (23-29); Chloride 100 mEq/L (98-107); Glucose 124 mg/dL (70-105); Osmolality,Calculated 278 (280-300); Potassium 3.3 mEq/L (3.5-5.1); Sodium 134 mEq/L (136-145); eGFR For African Americans > 60 (> 60); eGFR For Non-African Americans > 60 (> 60)
[2018-04-21] MEDS: Folic Acid 1 MG TABLET PO SCH (07:55)
[2018-04-21] MEDS: Nicotine 21 MG PATCH.TD24 TD SCH (07:55)
[2018-04-21] MEDS: Thiamine (B-1) 100 MG TABLET PO SCH (07:55)
[2018-04-21] MEDS: Pantoprazole 40 MG VIAL IVP SCH (07:55)
--- NOTE | 2018-04-21 13:52 | Internal Med Progress Note ---
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 W's Denies visual, or auditory hallucinations Will continue to monitor for s/s of DT's Qualifiers: Substance use status: in withdrawal Complication of substance-induced condition: uncomplicated Qualified Code(s): F10.230 - Alcohol dependence with withdrawal, uncomplicated (2) Weakness of right lower extremity Current Visit: Yes Status: Acute Assessment and plan: per hx, with frequent falls at home, x-ray pelvis negative for definite fractures with spurring noted bilat hips and lumbar spine. PT and Occupational consults pending (3) Left knee pain Current Visit: Yes Status: Acute Assessment and plan: Per hx, x-ray left moderate tricompartmental osteoarthritis , no acute fracture. Will await consult report Occupation therapy and PT. Ibuprofen 400 mg prn Qualifiers: Chronicity: acute Qualified Code(s): M25.562 - Pain in left knee (4) Hypertension Current Visit: No Status: Chronic Assessment and plan: per hx, mild elevations, will continue to monitor, continue with Chlorthalidone , Qualifiers: Hypertension type: essential hypertension Qualified Code(s): I10 - Essential (primary) hypertension (5) Hypokalemia Current Visit: Yes Status: Acute Assessment and plan: mild K+ 3.3 (3.5-5.1) will continue to monitor with daily CMP. (6) Nausea and vomiting Current Visit: Yes Status: Acute Assessment and plan: Will continue Zofran as needed Qualifiers: Vomiting type: cyclical vomiting Vomiting Intractability: unspecified Qualified Code(s): G43.A0 - Cyclical vomiting, not intractable (7) DVT prophylaxis Current Visit: Yes Status: Acute - Time Spent With Patient Total time spent is greater than 50% in coordination of care (as documented) at patient's floor/unit and/or counseling patient: - Subjective Interval history: A 62-year-old male per history with hypertension presented to the ER with chief complaints of nausea vomiting and recurrent falls was found to be highly intoxicated states that he has been drinking for the past 1-1/2 weeks. patient services coordinator are pending referral on this patient. He is requesting to go home and states that if we will not discharging he will be leaving AMA. States that he has 2 dogs, and no one to take care of them, they are locked in the house. Encouraged to stay in hospital to complete assessment on left knee pain and weakness, PT/OCC health consult is pending. - Constitutional Vitals: Temp Pulse Resp BP Pulse Ox 99.0 F 86 17 141/96 96 04/21/18 11:43 04/21/18 11:43 04/21/18 11:43 04/21/18 11:43 04/21/18 11:43 General appearance: Present: cooperative, disheveled, A&O X 3, no acute distress , answers questions appropriately - Respiratory Respiratory exam: Present: CTAB - Cardiovascular Cardiovascular exam: Present: RRR - GI/Abdominal GI/Abdominal exam: Present: normal bowel sounds, soft - Additional comments: Incontinent of urine, up to bathroom to void, unable to void in commode d/t unsteady gait and off balance, urinated in floor and then stepped - Expanded Lower Extremities Exam Knee exam: Present: crepitus (decreased ROM left knee with grinding of joint space, pain with full extention, negative for effusion ), tenderness, warmth Lower Leg exam: Present: normal inspection Gait: Present: observed and limited by pain (shuffle gait , unsteady with ambulation, off balance) - Neurological Exam Neurological exam: Present: abnormal gait, CN II-XII intact, oriented X3 - Psychiatric Psychiatric exam: Present: agitated (demanding to be discharged ) - Expanded Psychiatric Exam Focused psych exam: Present: restlessness Internal Medicine: Result - Labs CBC & Chem 7: 04/21/18 01:29 04/21/18 01:29 Labs: Short CBC 04/21/18 Range/Units 01:29 WBC 8.3 (4.3-11.1) K/mcL Hgb 15.2 D (12.9-16.9) g/dL Hct 43.2 (37.5-50.1) % Plt Count 88 L (140-400) K/mcL Neutrophils # 6.1 (1.6-8.9) K/mcL BMP 04/21/18 01:29 Sodium 134 L Potassium 3.3 L Chloride 100 Carbon Dioxide 25 BUN 8 Creatinine 0.59 L Glucose 124 H Calcium 9.6 Consult Discharge Plan - Plan Referrals: Darlene Spears DO [Resident] - 05/10/18 2:00 pm
[2018-04-21] MEDS ORDERED: Ibuprofen 400 MG TABLET PO PRN (14:13)
--- NOTE | 2018-04-21 15:31 | Event Note ---
Date of Encounter: 04/21/18 Time of Encounter: 15:30 Inform her nursing staff that the patient is requesting to leave AMA. Refer to earlier progress progress note with discussions involving encouraging patient to stay for further diagnostic and probable treatments for osteoarthritis poor gait and left knee pain
--- NOTE | 2018-04-21 18:22 | Event Note ---
Date of Encounter: 04/21/18 Time of Encounter: 18:20 Was requesting to sign out AMA, after realization that had no way home, and is unable to "walk home", patient has decided to stay in hospital . Will continue with current orders
[2018-04-21] MEDS: *HR* LORazepam 2 MG/ML VIAL IVP PRN (19:45)
[2018-04-22] MEDS: *HR* LORazepam 2 MG/ML VIAL IVP PRN ×3 (00:42→15:55)
[2018-04-22 05:15] LABS: Hematocrit 42.2 % (37.5-50.1); Hemoglobin 14.8 g/dL (12.9-16.9); Immature Granulocytes % 1.3 % (0-4); Mean Corpuscular HGB Conc 35.1 g/dL (31.6-35.5); Monocytes % 4.6 %; Red Cell Distribution Width 15.1 % (11.5-14.5); Segmented Neutrophils % 70.1 %
[2018-04-22 05:16] LABS: Basophils # 0.1 K/mcL (0.0-0.2); Basophils % 0.9 %; Eosinophils # 0.2 K/mcL (0.0-0.6); Eosinophils % 2.5 %; Immature Platelets 8.1 % (1.1-6.1); Lymphocytes % 20.6 %; Mean Corpuscular Hemoglobin 33.8 pg (28.0-33.3); Mean Corpuscular Volume 96.3 fL (83.0-100.0); Mean Platelet Volume 11.2 fL (9.4-12.4); Monocytes # 0.5 K/mcL (0.0-1.3); Neutrophils # 6.8 K/mcL (1.6-8.9); Red Blood Count 4.38 M/mcL (4.19-5.50)
[2018-04-22 05:19] LABS: Platelet Count 84 K/mcL (140-400)
[2018-04-22 05:36] LABS: BUN/Creatinine Ratio 21 (6-26); Blood Urea Nitrogen 17 mg/dL (8-23); Calcium 9.3 mg/dL (8.6-10.3); Carbon Dioxide 26 mEq/L (23-29); Chloride 99 mEq/L (98-107); Glucose 131 mg/dL (70-105); Osmolality,Calculated 277 (280-300); Potassium 3.5 mEq/L (3.5-5.1); Sodium 132 mEq/L (136-145); eGFR For African Americans > 60 (> 60); eGFR For Non-African Americans > 60 (> 60)
[2018-04-22] MEDS: Pantoprazole 40 MG VIAL IVP SCH (08:09)
[2018-04-22] MEDS: Folic Acid 1 MG TABLET PO SCH (08:09)
[2018-04-22] MEDS: Thiamine (B-1) 100 MG TABLET PO SCH (08:09)
[2018-04-22] MEDS: Nicotine 21 MG PATCH.TD24 TD SCH (08:09)
--- NOTE | 2018-04-22 15:00 | Internal Med Progress Note ---
Date of Encounter: 04/22/18 Time of Encounter: 14:58 - Assessment and plan (1) Alcohol withdrawal Current Visit: Yes Status: Acute Assessment and plan: Reports heavy drinking for the last week Denies any suicidal/homicidal ideation, denies any auditory or visual hallucinations He reports that he began drinking heavily after the of his mother Has a history of alcoholism with multiple relapses States that he has been drinking a 12 pack of beer daily with 1 bottle of vodka in addition to this Reports that his last drink was 04/18/18 Was in withdrawal during early hospital course with S/sx of nausea, diarrhea, agitation, anxiety With the exception of nausea these symptoms have resolved Continue [facility] protocol B-12, thiamine and folate daily Consult mental health social worker to provide resources for alcohol cessation PT/OT while inpatient 11/24 poor functional capacity would benefit from inpatient rehab but is declining at this time, will discuss again tomorrow Daily labs Qualifiers: Complication of substance-induced condition: uncomplicated Qualified Code(s ): F10.230 - Alcohol dependence with withdrawal, uncomplicated (2) Alcohol abuse Current Visit: Yes Status: Acute Assessment and plan: History of alcohol abuse with multiple relapses Reports heavy drinking for the last week Reports that he has been drinking a 12 pack of beer daily as well as a bottle of vodka Denies any suicidal or homicidal ideation, denies any auditory or visual hallucinations See further assessment and planning above (3) Left knee pain Current Visit: Yes Status: Acute Assessment and plan: Status post fall Imaging negative for fracture Pain tolerable Qualifiers: Chronicity: acute Qualified Code(s): M25.562 - Pain in left knee (4) Generalized weakness Current Visit: Yes Status: Acute Assessment and plan: Presented with reports of Difficulty ambulating and generalized weakness of bilateral lower extremities Patient has decreased activity tolerance and is has an unsteady gait requiring SBA, would benefit from skilled services at [facility] for rehab neuro exam is non focal acute weakness is multifactorial, related to alcohol withdrawal, poor nutrition and vomiting/diarrhea prior to arrival cont with PT/OT while in patient patient does not wish to participate in short-term rehab consider d/c with home health and pt/ot (5) Nausea and vomiting Current Visit: Yes Status: Resolved Assessment and plan: Patient had nausea and vomiting prior to admission Most likely related to alcoholic gastritis reports that he has not had a drink since Monday04/18/18 symptoms could also be from withdrawal No episodes of emesis today Continues to have nausea but is tolerating a diet cont Antiemetics PRN cont CIWA protocol Qualifiers: Vomiting type: cyclical vomiting Vomiting Intractability: unspecified Qualified Code(s): G43.A0 - Cyclical vomiting, not intractable (6) Diarrhea Current Visit: Yes Status: Acute Assessment and plan: Diarrhea in the setting of alcohol withdrawal Has now subsided Continue to monitor Treatment loperamide PRN Qualifiers: Diarrhea type: unspecified type Qualified Code(s): R19.7 - Diarrhea, unspecified (7) Hyponatremia Current Visit: Yes Status: Acute Assessment and plan: Hyponatremia in the setting of hypovolemia secondary to diarrhea Asymptomatic Eating and drinking Monitor labs daily - Time Spent With Patient Total time spent is greater than 50% in coordination of care (as documented) at patient's floor/unit and/or counseling patient: 25 - 35 minutes - Subjective Interval history: Here for ETOH abuse and withdrawal, no acute changes over night - Constitutional Vitals: Temp Pulse Resp BP Pulse Ox 98.0 F 70 16 130/82 95 04/22/18 11:15 04/22/18 11:15 04/22/18 11:15 04/22/18 11:15 04/22/18 11:15 General appearance: Present: cooperative, disheveled, A&O X 3, no acute distress , answers questions appropriately - Head Head exam: Present: atraumatic, normocephalic - Eye Eye exam: Present: PERRL, conjuntiva pink, sclera anicteric Pupils: Present: PERRL - Neck Neck exam general surgery: Present: supple, trachea midline. Absent: lymphadenopathy - Respiratory Respiratory exam: Present: CTAB. Absent: accessory muscle use, rales, rhonchi, wheezes - Cardiovascular Cardiovascular exam: Present: RRR, +S1, +S2. Absent: diastolic murmur, gallop, rubs, systolic murmur - GI/Abdominal GI/Abdominal exam: Present: normal bowel sounds, soft, no peritoneal signs. Absent: distended, tenderness - Extremities Exam Extremities exam: Present: warm, radial pulses palpable and symmetrical. Absent : calf tenderness, cyanotic, pedal edema - Neurological Exam Neurological exam: Present: CN II-XII intact, oriented X3, no focal deficits. Absent: pronater drift, facial droop, speech deficit - Psychiatric Psychiatric exam: Present: depressed. Absent: agitated, anxious, homicidal ideation, manic, suicidal ideation - Skin Skin exam: Present: dry, intact Internal Medicine: Result - Labs CBC & Chem 7: 04/22/18 04:26 04/22/18 04:26 Labs: Short CBC 04/22/18 Range/Units 04:26 WBC 9.7 (4.3-11.1) K/mcL Hgb 14.8 (12.9-16.9) g/dL Hct 42.2 (37.5-50.1) % Plt Count 84 L (140-400) K/mcL Neutrophils # 6.8 (1.6-8.9) K/mcL BMP 04/22/18 04:26 Sodium 132 L Potassium 3.5 Chloride 99 Carbon Dioxide 26 BUN 17 Creatinine 0.80 Glucose 131 H Calcium 9.3 Consult Discharge Plan - Plan Referrals: Darlene Spears DO [Resident] - 05/10/18 2:00 pm
[2018-04-22] MEDS: Ondansetron 4 MG/2 ML VIAL IVP PRN ×2 (16:01→22:41)
[2018-04-23 05:33] LABS: Basophils # 0.1 K/mcL (0.0-0.2); Basophils % 0.8 %; Eosinophils # 0.3 K/mcL (0.0-0.6); Eosinophils % 2.3 %; Hematocrit 42.1 % (37.5-50.1); Hemoglobin 14.7 g/dL (12.9-16.9); Immature Granulocytes % 1.8 % (0-4); Lymphocytes # 2.5 K/mcL (0.6-4.6); Lymphocytes % 22.7 %; Mean Corpuscular HGB Conc 34.9 g/dL (31.6-35.5); Mean Corpuscular Hemoglobin 33.6 pg (28.0-33.3); Mean Corpuscular Volume 96.3 fL (83.0-100.0); Mean Platelet Volume 10.9 fL (9.4-12.4); Monocytes # 0.6 K/mcL (0.0-1.3); Monocytes % 5.4 %; Neutrophils # 7.3 K/mcL (1.6-8.9); Platelet Count 102 K/mcL (140-400); Red Blood Count 4.37 M/mcL (4.19-5.50); Red Cell Distribution Width 15.1 % (11.5-14.5)
[2018-04-23 05:55] LABS: BUN/Creatinine Ratio 30 (6-26); Blood Urea Nitrogen 19 mg/dL (8-23); Calcium 9.1 mg/dL (8.6-10.3); Carbon Dioxide 25 mEq/L (23-29); Chloride 100 mEq/L (98-107); Glucose 105 mg/dL (70-105); Osmolality,Calculated 281 (280-300); Potassium 3.1 mEq/L (3.5-5.1); Sodium 134 mEq/L (136-145); eGFR For African Americans > 60 (> 60); eGFR For Non-African Americans > 60 (> 60)
[2018-04-23] MEDS: Nicotine 21 MG PATCH.TD24 TD SCH (09:28)
[2018-04-23] MEDS: Ondansetron 4 MG/2 ML VIAL IVP PRN (09:28)
[2018-04-23] MEDS: Thiamine (B-1) 100 MG TABLET PO SCH (09:28)
[2018-04-23] MEDS: Folic Acid 1 MG TABLET PO SCH (09:28)
[2018-04-23] MEDS: *HR* LORazepam 2 MG/ML VIAL IVP PRN (09:29)
[2018-04-23] MEDS: Pantoprazole 40 MG VIAL IVP SCH (09:30)
[2018-04-23 11:59] VITALS: BP 126/90
--- NOTE | 2018-04-23 13:04 | Internal Med Progress Note ---
Date of Encounter: 04/23/18 Time of Encounter: 13:01 - Assessment and plan (1) Alcohol withdrawal Current Visit: Yes Status: Acute Assessment and plan: hhistory of heavy alcohol abuse, reporting increase in drinking since the of his mother recently Patient reports that prior to admission he had been drinking for greater than one week straight without cessation This had led to nausea, vomiting diarrhea and abdominal pain approximately 36 hours prior to admission Last alcoholic beverage was approximately 36 hours prior to admission, 04/18/18 high risk for withdrawal Has a history of alcoholism with multiple relapses States that he has been drinking a 12 pack of beer daily with 1 bottle of vodka in addition to this He did experience some mild withdrawal symptoms while inpatient including agitation, anxiety, tremulousness, nausea and diarrhea; withdrawal symptoms resolved Has continued to deny any suicidal/homicidal ideation, or auditory/ visual hallucinations Patient was placed on CIWA protocol and given daily B12, thiamine and folate supplementation Was given IV fluid for hydration, antiemetics for nausea PT/OT services throughout stay. Patient noted to have mild gait deficits due to bilateral lower extremity weakness requiring standby assistance and controlled gait assistance Per PT/OT is recommended that the patient discharged to SNF for rehabilitation however, at this time the patient is declining He has had an uneventful hospital course, throughout his stay his strength has continued to improve He is no longer having signs or symptoms of withdrawal he was wishing to discharge today I have discussed with the patient that I feel he would benefit from inpatient rehabilitation however, again he is continuing to decline rehabilitation services Patient is progressing back to baseline. Being discharged in stable condition. Instructed to follow-up with PCP within 1 week of discharge. Strongly encouraged alcohol cessation and counseling services. Patient reports that he would like to contact a counselor and seek alcohol counseling in the outpatient setting. Also, informed the patient she return to the ED showed began to experience suicidal/homicidal ideation, auditory/visual hallucinations, severe depression, increasing in weakness and fatigue. Patient verbalizes understanding and denies any further questions at this time. Qualifiers: Complication of substance-induced condition: uncomplicated Qualified Code(s ): F10.230 - Alcohol dependence with withdrawal, uncomplicated (2) Alcohol abuse Current Visit: Yes Status: Acute Assessment and plan: See above (3) Left knee pain Current Visit: Yes Status: Acute Assessment and plan: Status post fall Imaging negative for fracture Pain tolerable continue current treatment Qualifiers: Chronicity: acute Qualified Code(s): M25.562 - Pain in left knee (4) Generalized weakness Current Visit: Yes Status: Acute Assessment and plan: Presented with reports of Difficulty ambulating and generalized weakness of bilateral lower extremities Patient has decreased activity tolerance and is has an unsteady gait requiring SBA, CGA, would benefit from skilled services at [facility] for rehab however, patient is adamant that he is not going to an SNF for rehabilitation. Instead, he is wishing to discharge home neuro exam is non focal, acute weakness is multifactorial, related to alcohol withdrawal, poor nutrition, hypovolemia with vomiting/diarrhea prior to arrival cont with PT/OT while in patient consider d/c with home health and pt/ot if possible. (5) Nausea and vomiting Current Visit: Yes Status: Resolved Assessment and plan: resolved Qualifiers: Vomiting type: cyclical vomiting Vomiting Intractability: unspecified Qualified Code(s): G43.A0 - Cyclical vomiting, not intractable (6) Diarrhea Current Visit: Yes Status: Acute Assessment and plan: Intermittent episodes of diarrhea Last loose bowel movement yesterday Qualifiers: Diarrhea type: unspecified type Qualified Code(s): R19.7 - Diarrhea, unspecified (7) Hyponatremia Current Visit: Yes Status: Acute Assessment and plan: Hyponatremia in the setting of hypovolemia and diarrhea Asymptomatic, serum sodium improving Eating and drinking - Time Spent With Patient Total time spent is greater than 50% in coordination of care (as documented) at patient's floor/unit and/or counseling patient: 25 - 35 minutes - Subjective Interval history: Here for ETOH abuse and withdrawal, no acute changes over night, reports that he is ready to go home today - Constitutional Vitals: Temp Pulse Resp BP Pulse Ox 98.2 F 81 18 126/90 94 04/23/18 11:58 04/23/18 11:58 04/23/18 11:58 04/23/18 11:58 04/23/18 11:58 General appearance: Present: cooperative, disheveled, A&O X 3, no acute distress , answers questions appropriately - Head Head exam: Present: atraumatic, normocephalic - Eye Eye exam: Present: PERRL, conjuntiva pink, sclera anicteric Pupils: Present: PERRL - Neck Neck exam general surgery: Present: supple, trachea midline. Absent: lymphadenopathy - Respiratory Respiratory exam: Present: CTAB. Absent: accessory muscle use, rales, rhonchi, wheezes - Cardiovascular Cardiovascular exam: Present: RRR, +S1, +S2. Absent: diastolic murmur, gallop, rubs, systolic murmur - GI/Abdominal GI/Abdominal exam: Present: normal bowel sounds, soft, no peritoneal signs. Absent: distended, tenderness - Extremities Exam Extremities exam: Present: normal capillary refill, normal inspection, warm, radial pulses palpable and symmetrical. Absent: calf tenderness, cyanotic, pedal edema, tenderness - Neurological Exam Neurological exam: Present: alert, CN II-XII intact, oriented X3, no focal deficits, strengths equal and symetr throughout. Absent: pronater drift, facial droop, speech deficit Additional comments: Bilateral lower extremity weakness with ambulation, mildly unsteady gait requiring standby gait assist - Skin Skin exam: Present: dry, intact Internal Medicine: Result - Labs CBC & Chem 7: 04/23/18 04:22 04/23/18 04:22 Labs: Short CBC 04/23/18 Range/Units 04:22 WBC 10.8 (4.3-11.1) K/mcL Hgb 14.7 (12.9-16.9) g/dL Hct 42.1 (37.5-50.1) % Plt Count 102 L (140-400) K/mcL Neutrophils # 7.3 (1.6-8.9) K/mcL BMP 04/23/18 04:22 Sodium 134 L Potassium 3.1 L Chloride 100 Carbon Dioxide 25 BUN 19 Creatinine 0.63 L Glucose 105 Calcium 9.1 Consult Discharge Plan - Plan Referrals: Darlene Spears DO [Resident] - 05/10/18 2:00 pm
--- NOTE | 2018-04-23 16:21 | Discharge Summary ---
- NOTES TO OUTPATIENT PROVIDER Notes to Outpatient Provider: admitted for alcohol abuse and withdrawal as well as weakness, fatigue, n/v/d. no pending studies. PT/OT eval for weakness; recommend SNF for rehab for PT/OT with home health. Unable to place Date of Encounter: 04/23/18 Time of Encounter: 16:19 - Discharge Diagnosis (1) Alcohol withdrawal Priority: Primary Status: Acute Assessment and Plan: history of heavy alcohol abuse, reporting increase in drinking since the of his mother recently Patient reports that prior to admission he had been drinking for greater than one week straight without cessation This had led to nausea, vomiting diarrhea and abdominal pain approximately 36 hours prior to admission Last alcoholic beverage was approximately 36 hours prior to admission, 04/18/18 high risk for withdrawal Has a history of alcoholism with multiple relapses States that he has been drinking a 12 pack of beer daily with 1 bottle of vodka in addition to this He did experience some mild withdrawal symptoms while inpatient including agitation, anxiety, tremulousness, nausea and diarrhea; withdrawal symptoms resolved Has continued to deny any suicidal/homicidal ideation, or auditory/ visual hallucinations Patient was placed on CIWA protocol and given daily B12, thiamine and folate supplementation Was given IV fluid for hydration, antiemetics for nausea PT/OT services throughout stay. Patient noted to have mild gait deficits due to bilateral lower extremity weakness requiring standby assistance and controlled gait assistance; improving day of D/C but still week Per PT/OT is recommended that the patient discharged to SNF for rehabilitation however, at this time the patient is declining; also, unable to qualify for SNF placement as he does not have insurance and is not willing to pay out of pocket. Also, he is unwilling to pay for home health services out of pocket He has had an uneventful hospital course, throughout his stay his strength has continued to improve He is no longer having signs or symptoms of withdrawal he was wishing to discharge today D/c with B vitamin, thiamin and folate I have discussed with the patient that I feel he would benefit from inpatient rehabilitation however, again he is continuing to decline rehabilitation services, and strongly requesting discharge Patient is progressing back to baseline. Being discharged in stable condition. Instructed to follow-up with PCP within 1 week of discharge. Strongly encouraged alcohol cessation and counseling services. Patient reports that he would like to contact a counselor and seek alcohol counseling in the outpatient setting. Also, informed the patient she return to the ED showed began to experience suicidal/homicidal ideation, auditory/visual hallucinations, severe depression, increasing in weakness and fatigue. Patient verbalizes understanding and denies any further questions at this time. Qualifiers: Complication of substance-induced condition: uncomplicated Qualified Code(s ): F10.230 - Alcohol dependence with withdrawal, uncomplicated (2) Alcohol abuse Priority: Secondary Status: Acute Assessment and Plan: See above (3) Left knee pain Priority: Secondary Status: Acute Assessment and Plan: Status post fall Imaging negative for fracture tylenol or ibuprofen for pain Qualifiers: Chronicity: acute Qualified Code(s): M25.562 - Pain in left knee (4) Generalized weakness Priority: Secondary Status: Acute Assessment and Plan: Presented with reports of Difficulty ambulating and generalized weakness of bilateral lower extremities Improving today but remains weak Patient has decreased activity tolerance and has an unsteady gait requiring SBA , CGA, would benefit from skilled services at [facility] for rehab however, patient is adamant that he is not going to an SNF for rehabilitation. Instead, he is wishing to discharge home neuro exam is non focal, acute weakness is multifactorial, related to alcohol withdrawal, poor nutrition, hypovolemia with vomiting/diarrhea prior to arrival (5) Nausea and vomiting Priority: Secondary Status: Resolved Assessment and Plan: resolved Qualifiers: Vomiting type: cyclical vomiting Vomiting Intractability: unspecified Qualified Code(s): G43.A0 - Cyclical vomiting, not intractable (6) Diarrhea Priority: Secondary Status: Acute Assessment and Plan: Intermittent episodes of diarrhea Last loose bowel movement yesterday Qualifiers: Diarrhea type: unspecified type Qualified Code(s): R19.7 - Diarrhea, unspecified (7) Hyponatremia Priority: Secondary Status: Acute Hospital course: Mr. Hernandez is a 62 year old male see assessment and plan for hospital course Discharge discussed with: patient, family, nurse, social work - Time Spent with Patient Total time spent providing and/or coordinating discharge services: Less than 30 minutes - Discharge Medications Prescriptions: Folic Acid 1 mg PO DAILY 30 Days #30 tablet Thiamine (B-1) [Vitamin B-1] 100 mg PO DAILY 30 Days #30 tablet Home Medications: Ibuprofen [Motrin Ib] 400 mg PO Q6-8H PRN 03/25/18 [History] Folic Acid 1 mg PO DAILY 30 Days #30 tablet 04/23/18 [Rx] Thiamine (B-1) [Vitamin B-1] 100 mg PO DAILY 30 Days #30 tablet 04/23/18 [Rx] Allergies/Adverse Reactions: 3 Allergy/AdvReac Type Severity Reaction Status Date / Time No Known Allergies Allergy Verified 03/25/18 12:16 Date of admission: 04/19/18 06:01 Primary care physician: PCP NONE Consults: 04/19/18 08:03 Consult to Physical Therapy [CONS] Routine Comment: Evaluate, develop and implement POC Reason for Consult: Patient reports R leg weakness Does patient have active BEDREST order?: No Is patient medically & hemodynamically stable?: Yes Patient assessed for mobility or mobilized this visit?: Yes 04/19/18 08:04 Consult to Occupational Therapy [CONS] Routine Comment: Evaluate, develop and implement POC Reason for Consult: Patient reports R leg weakness Does patient have active BEDREST order?: No Is patient medically & hemodynamically stable?: Yes Patient assessed for mobility or mobilized this visit?: Yes 04/19/18 08:13 Consult to Occupational Therapy [CONS] Routine Comment: Evaluate, develop and implement POC Reason for Consult: Difficulty ambulating Does patient have active BEDREST order?: No Is patient medically & hemodynamically stable?: Yes Consult to Physical Therapy [CONS] Routine Comment: Evaluate, develop and implement POC Reason for Consult: Difficulty ambulating Does patient have active BEDREST order?: No Is patient medically & hemodynamically stable?: Yes 04/19/18 08:14 Consult to [employer] [CONS] Routine Reason for SW Consult: Alcohol abuse Discharging clinician: Ulices Thakur Anticipated date of discharge: 04/23/18 - Constitutional Vitals: Temp Pulse Resp BP Pulse Ox 98.2 F 81 18 126/90 94 04/23/18 11:58 04/23/18 11:58 04/23/18 11:58 04/23/18 11:58 04/23/18 11:58 General appearance: Present: cooperative, disheveled, A&O X 3, no acute distress , answers questions appropriately - Head Head exam: Present: atraumatic, normocephalic - Eye Eye exam: Present: PERRL, conjuntiva pink, sclera anicteric Pupils: Present: PERRL - Neck Neck exam general surgery: Present: supple, trachea midline. Absent: lymphadenopathy - Respiratory Respiratory exam: Present: CTAB. Absent: accessory muscle use, rales, rhonchi, wheezes - Cardiovascular Cardiovascular exam: Present: RRR, +S1, +S2. Absent: diastolic murmur, gallop, rubs, systolic murmur - GI/Abdominal GI/Abdominal exam: Present: normal bowel sounds, soft, no peritoneal signs. Absent: distended, tenderness - Extremities Exam Extremities exam: Present: warm, radial pulses palpable and symmetrical. Absent : calf tenderness, cyanotic, pedal edema - Neurological Exam Neurological exam: Present: CN II-XII intact, oriented X3, no focal deficits. Absent: pronater drift, facial droop, speech deficit - Skin Skin exam: Present: dry, intact - Patient Status Disposition: Home, Self-Care Condition: Fair Functional capacity at discharge: independent ambulation Overall status at discharge: patient is progressing back to baseline - Discharge Instructions Follow Up With: Darlene Spears DO [Resident] - 05/10/18 2:00 pm - Diet and Activity Activity: increase activity as tolerated, resume usual activities as tolerated Diet: advance to your usual diet
== END 2018-04-23 17:07 | disposition home or self-care (01) ==
LOC: EMEROO 01:40 → 3BNU 01:40
PROVIDERS: ADMIT Internal Medicine; ATTEND Internal Medicine

== ENCOUNTER 2018-05-01 09:51 | Inpatient (IN) ==
[2018-05-01] MEDS ORDERED: Nitroglycerin 0.4 MG TAB.SUBL SL ONE (09:53)
[2018-05-01] MEDS ORDERED: *HR* LORazepam 2 MG/ML VIAL IVP ONE (10:11)
[2018-05-01] MEDS ORDERED: Ondansetron 4 MG/2 ML VIAL IVP ONE (10:11)
[2018-05-01] MEDS ORDERED: Folic Acid 1 MG in D5% in Water 50 ML IVPB STA (10:11)
[2018-05-01] MEDS ORDERED: MVI, adult with vitamin K 10 ML in 0.9 % Sodium Chloride 1,000 ML IVC ONE (10:11)
[2018-05-01] MEDS ORDERED: Thiamine (B-1) 100 MG in D5% in Water 50 ML IVPB ONE (10:11)
[2018-05-01 10:14] LABS: Basophils # 0.1 K/mcL (0.0-0.2); Basophils % 1.8 %; Eosinophils % 0.6 %; Hematocrit 44.9 % (37.5-50.1); Hemoglobin 16.3 g/dL (12.9-16.9); Immature Granulocytes % 0.9 % (0-4); Lymphocytes # 2.2 K/mcL (0.6-4.6); Lymphocytes % 33.8 %; Mean Corpuscular HGB Conc 36.3 g/dL (31.6-35.5); Mean Corpuscular Hemoglobin 34.7 pg (28.0-33.3); Mean Corpuscular Volume 95.5 fL (83.0-100.0); Mean Platelet Volume 8.7 fL (9.4-12.4); Monocytes # 0.6 K/mcL (0.0-1.3); Monocytes % 9.3 %; Neutrophils # 3.5 K/mcL (1.6-8.9); Platelet Count 260 K/mcL (140-400); Red Cell Distribution Width 14.4 % (11.5-14.5); Segmented Neutrophils % 53.6 %
--- NOTE | 2018-05-01 10:21 | Emergency Department Note ---
Disposition Clinical Impression: Hypoxia Chest pain Qualifiers: Chest pain type: unspecified Qualified Code(s): R07.9 - Chest pain, unspecified Syncope Qualifiers: Syncope type: unspecified Qualified Code(s): R55 - Syncope and collapse Alcohol intoxication Qualifiers: Complication of substance-induced condition: uncomplicated Qualified Code(s): F10.920 - Alcohol use, unspecified with intoxication, uncomplicated Disposition: Admitted As Inpatient Condition: Good Referrals: NONE,PCP [Primary Care Provider] - Falguni Rodriguez [Family Provider] - Forms: ED Satisfaction Letter Time of Disposition: 11:48 General Adult HPI - General Chief complaint: ED Chest Pain Time Seen by Provider: 05/01/18 09:53 Source: patient, EMS Limitations: no limitations Nursing Notes Reviewed: Yes Vital Signs Reviewed: Yes - History of Present Illness HPI Narrative: 62 year old male presents to the ED via EMS for complaits of chest pain and anxiety and sycnoep. He states that he has been heaviliy drinking over the past 3-4 days and drinks dailiy but is unsure how much he drinks everyday and that it varies. Jenise states that he is having chest presurre that is heavy with radiation into his back and has diaphoresis and exetional dyspnea and states that over the past 2-3 days he has been experincing increased sycnopal episode. Jenise states that this is a new occurance and he does appaear intoxicated at bedside. Jenise states taht he has been in alcohol withdrawl before in the past. Jenise denies headaches, or neurolgoical defeciets although he has been vomitting. These syncopal episodes have been unwtinessed. And he is unaware of any cardiac procedures he has had in the past but states that he does have HTN, high cholesterol, which is untreated in addition to smoking everyday putting him at high risk for being a vasculopath. Pain Scale: 8 - Related Data Home Medications Medication Instructions Recorded Confirmed No Known Home Drugs 05/01/18 05/01/18 Allergies Allergy/AdvReac Type Severity Reaction Status Date / Time No Known Allergies Allergy Verified 05/01/18 10:59 Constitutional: Reports: weakness. Denies: fever, chills, weight change Eyes: Denies: eye pain, eye discharge, vision change ENT ED: Denies: ear pain, throat pain, dental pain, hearing loss, epistaxis, congestion, dysphagia Cardiovascular: Reports: chest pain, dyspnea on exertion. Denies: palpitations , edema, syncope Respiratory: Denies: cough, dyspnea, wheezes, hemoptysis, stridor Gastrointestinal: Reports: abdominal pain, vomiting. Denies: nausea, diarrhea, constipation, hematemesis, melena, hematochezia Genitourinary: Denies: urgency, dysuria, frequency, hematuria Musculoskeletal: Denies: back pain, neck pain, arthralgia, myalgia Integumentary: Denies: rash, abrasion, lesions Neurological: Reports: weakness. Denies: headache, numbness, paresthesias, confusion, abnormal gait, vertigo Psychiatric: Denies: anxiety, depression, suicidal thoughts, homicidal thoughts , auditory hallucinations, visual hallucinations Endocrine: Denies: fatigue Hematological/Lymphatic: Denies: easy bleeding, easy bruising Allergic/Immunologic: Denies: facial swelling, urticaria Past Medical History - Past Medical History Medical history: Reports: COPD, hyperlipidemia, hypertension, other Surgical history: Reports: non-contributory Psychiatric history: Reports: anxiety, depression - Social History Smoking Status: Current every day smoker Smokeless Tobacco Status: No Alcohol use: Reports: heavy, recent Drug use: Reports: none Physical Exam - General Limitations: no limitations General appearance: alert, appears intoxicated - Head Head exam: atraumatic, normocephalic, normal inspection - Eye Eye exam: Present: normal appearance, PERRL, EOMI - Expanded Eye Exam Pupils: Bilateral: reactive - ENT ENT exam: normal exam, normal oropharynx, mucous membranes moist - Expanded ENT Exam External ear exam: Present: normal external inspection Mouth exam: Present: normal external inspection Teeth exam: Present: normal inspection Throat exam: Present: normal inspection - Neck Neck exam: Present: normal inspection, full ROM, trachea midline - Chest Chest inspection: Present: normal inspection, symmetric chest wall rise - Respiratory Respiratory exam: Present: normal lung sounds bilaterally - Cardiovascular Cardiovascular exam: Present: regular rate, normal rhythm, normal heart sounds - Abdominal Exam Abdominal exam: Present: soft, Non-Tender. Absent: tenderness, distention, guarding, rebound, rigidity - Extremities Exam Extremities exam: Present: normal inspection, full ROM. Absent: tenderness, pedal edema - Expanded Upper Extremity Exam Shoulder exam: Present: normal inspection, full ROM Arm exam: Present: normal inspection, full ROM Elbow exam: Present: normal inspection, full ROM Forearm/Wrist exam: Present: normal inspection, full ROM Hand exam: Present: normal inspection, full ROM Vascular exam: Normal: capillary refill, radial pulse - Expanded Lower Extremity Exam Hip/Pelvis exam: Present: normal inspection, full ROM Upper leg exam: Present: normal inspection, full ROM Knee exam: Present: normal inspection, full ROM Lower leg exam: Present: normal inspection, full ROM Ankle exam: Present: normal inspection, full ROM Foot/toe exam: Present: normal inspection, full ROM Neurovascular/Tendon exam: Absent: motor deficit, sensory deficit, tendon deficit - Back Exam Back exam: Present: normal inspection, full ROM. Absent: tenderness - Neurological Exam Neurological exam: Present: alert, oriented X3 - Expanded Neurological Exam Patient oriented to: Present: person, place, time Coma Scale Eye Opening: Spontaneous Coma Scale Motor Response: Obeys Commands Coma Scale Verbal Response: Oriented Coma Scale Total: 15 - Psychiatric Psychiatric exam: Present: normal affect, normal mood - Skin Skin exam: Present: warm, dry, intact, normal color Course Course Narrative: we iwll do a cardiopulmonary workup with abdominal labs and additional imaginign in addition to adding CIWA pprotocol and admission to the hospital. - Reevaluation(s) Reevaluation #1: jenise is 89% while he is sleeping and have put himon 2LNC and is now 96%. Jenise will be admitted to the hospital for CP, syncope, hypoxia and ETOH intoxication. Patient has been updated. Time: 11:47 Reevaluation #2: jenise monitoring and evaluation advisor started to alarm and it appeared he had sinus bradycardia at besdide with a rate of low 40s although 5 seconds later he was in the 70s and then began to go to 120s. I questioned the valdity of the monitor read as he did not appear in distress and was not experincing chest pain at that time. Jenise repeat EKG is NSR wit rate of 68, without change from his previous EKG. we will admit to medicine for sncypoe, chest pain, and possibly bradycardia evaluation. Jenise agreeable to admission Time: 12:04 - Consultations Consultation #1: discussed case with Dr. Schuler and she accepts jenise for admission. Time: 12:44 Vital Signs Temperature 96.9 F L 05/01/18 10:01 Pulse Rate 75 05/01/18 10:01 Respiratory Rate 18 05/01/18 10:01 Blood Pressure 122/88 05/01/18 10:01 O2 Sat by Pulse Oximetry 95 05/01/18 10:01 Temperature 96.9 F L 05/01/18 10:01 Pulse Rate 68 05/01/18 11:45 Respiratory Rate 15 05/01/18 11:45 Blood Pressure 116/96 05/01/18 11:45 O2 Sat by Pulse Oximetry 93 05/01/18 11:45 Oxygen Delivery Oxygen Delivery Room Air Medical Decision Making - Medical Records Medical records reviewed: Yes I reviewed the patient's medical records. - Lab Data Lab results reviewed: Yes I reviewed the patient's lab results. Result diagrams: 05/01/18 10:03 05/01/18 10:03 Lab Results 05/01/18 05/01/18 05/01/18 Range/Units 10:03 10:03 10:03 WBC 6.5 (4.3-11.1) K/mcL RBC 4.70 (4.19-5.50) M/mcL Hgb 16.3 (12.9-16.9) g/dL Hct 44.9 (37.5-50.1) % MCV 95.5 (83.0-100.0) fL MCH 34.7 H (28.0-33.3) pg MCHC 36.3 H (31.6-35.5) g/dL RDW 14.4 (11.5-14.5) % Plt Count 260 (140-400) K/mcL MPV 8.7 L (9.4-12.4) fL Immature Gran % 0.9 (0-4) % Seg Neutrophils % 53.6 % Lymphocytes % 33.8 % Monocytes % 9.3 % Eosinophils % 0.6 % Basophils % 1.8 % Neutrophils # 3.5 (1.6-8.9) K/mcL Lymphocytes # 2.2 (0.6-4.6) K/mcL Monocytes # 0.6 (0.0-1.3) K/mcL Eosinophils # 0.0 (0.0-0.6) K/mcL Basophils # 0.1 (0.0-0.2) K/mcL PT 12.5 H (9.4-12.1) Seconds INR 1.1 APTT 28.0 (26.0-36.0) Seconds D-Dimer 1135 H (0-500) ng/mLFEU Sodium (136-145) mEq/L Potassium (3.5-5.1) mEq/L Chloride (98-107) mEq/L Carbon Dioxide (23-29) mEq/L BUN (8-23) mg/dL Creatinine (0.70-1.30) mg/dL Est GFR ( Amer) (> 60) Est GFR (Non-Af Amer) (> 60) BUN/Creatinine Ratio (6-26) Glucose (70-105) mg/dL Calculated Osmolality (280-300) Calcium (8.6-10.3) mg/dL Total Bilirubin (0.3-1.0) mg/dL Direct Bilirubin (0.0-0.2) mg/dL Indirect Bilirubin (0.0-1.2) mg/dL AST (13-39) Units/L ALT (7-52) Units/L Alkaline Phosphatase (34-104) Units/L Troponin I (< 0.04) ng/mL B-Natriuretic Peptide 21 (Less than 100) pg/mL Serum Total Protein (6.4-8.9) g/dL Albumin (3.5-5.7) g/dL Globulin (2.4-3.5) g/dL Albumin/Globulin Ratio (1.1-2.2) Lipase (11-82) Units/L Urine Color (Yellow) Urine Clarity (Clear) Urine pH (5.0-8.0) pH Units Ur Specific [place] (1.010-1.025) Urine Protein (Neg-Trace) mg/dL Urine Glucose (UA) (Normal) mg/dL Urine Ketones (Negative) mg/dL Urine Blood (Negative) Urine Nitrite (Negative) Urine Bilirubin (Negative) Urine Urobilinogen (Normal) mg/dL Ur Leukocyte Esterase (Negative) Urine Microscopic RBC (0-3) per hpf Urine Microscopic WBC (0-3) per hpf Ur Squamous Epith Cells (None-Few) per lpf Urine Bacteria (None-Few) per hpf Hyaline Casts (None-Few) per lpf Ur Culture Indicated? (NO) Ur Drug Screen Interp Ethyl Alcohol (Less than 10) mg/dL 07/08/0905/01/18 05/01/18 Range/Units 10:03 12:09 12:09 WBC (4.3-11.1) K/mcL RBC (4.19-5.50) M/mcL Hgb (12.9-16.9) g/dL Hct (37.5-50.1) % MCV (83.0-100.0) fL MCH (28.0-33.3) pg MCHC (31.6-35.5) g/dL RDW (11.5-14.5) % Plt Count (140-400) K/mcL MPV (9.4-12.4) fL Immature Gran % (0-4) % Seg Neutrophils % % Lymphocytes % % Monocytes % % Eosinophils % % Basophils % % Neutrophils # (1.6-8.9) K/mcL Lymphocytes # (0.6-4.6) K/mcL Monocytes # (0.0-1.3) K/mcL Eosinophils # (0.0-0.6) K/mcL Basophils # (0.0-0.2) K/mcL PT (9.4-12.1) Seconds INR APTT (26.0-36.0) Seconds D-Dimer (0-500) ng/mLFEU Sodium 144 (136-145) mEq/L Potassium 3.1 L (3.5-5.1) mEq/L Chloride 102 (98-107) mEq/L Carbon Dioxide 24 (23-29) mEq/L BUN 10 (8-23) mg/dL Creatinine 0.62 L (0.70-1.30) mg/dL Est GFR ( Amer) > 60 (> 60) Est GFR (Non-Af Amer) > 60 (> 60) BUN/Creatinine Ratio 16 (6-26) Glucose 168 H (70-105) mg/dL Calculated Osmolality 301 H (280-300) Calcium 8.5 L (8.6-10.3) mg/dL Total Bilirubin 0.3 (0.3-1.0) mg/dL Direct Bilirubin 0.2 (0.0-0.2) mg/dL Indirect Bilirubin 0.1 (0.0-1.2) mg/dL AST 31 (13-39) Units/L ALT 35 (7-52) Units/L Alkaline Phosphatase 125 H (34-104) Units/L Troponin I < 0.03 (< 0.04) ng/mL B-Natriuretic Peptide (Less than 100) pg/mL Serum Total Protein 6.2 L (6.4-8.9) g/dL Albumin 3.2 L (3.5-5.7) g/dL Globulin 3.0 (2.4-3.5) g/dL Albumin/Globulin Ratio 1.1 (1.1-2.2) Lipase 89 H (11-82) Units/L Urine Color Yellow (Yellow) Urine Clarity Clear (Clear) Urine pH 6.5 (5.0-8.0) pH Units Ur Specific [place] > 1.030 H (1.010-1.025) Urine Protein 30 H (Neg-Trace) mg/dL Urine Glucose (UA) Normal (Normal) mg/dL Urine Ketones Negative (Negative) mg/dL Urine Blood Moderate H (Negative) Urine Nitrite Negative (Negative) Urine Bilirubin Negative (Negative) Urine Urobilinogen Normal (Normal) mg/dL Ur Leukocyte Esterase Negative (Negative) Urine Microscopic RBC 5-15 H (0-3) per hpf Urine Microscopic WBC 15-30 H (0-3) per hpf Ur Squamous Epith Cells Many H (None-Few) per lpf Urine Bacteria Few (None-Few) per hpf Hyaline Casts None Seen (None-Few) per lpf Ur Culture Indicated? NO (NO) Ur Drug Screen Interp See Below Ethyl Alcohol 388 H (Less than 10) mg/dL - Radiology Data Radiology results reviewed: Yes I reviewed the patient's radiology results. - EKG Data EKG #1 EKG attestation: Yes I reviewed and interpreted this EKG. EKG results narrative: NSR with rate of 80. NO STEMI. normal intervals. no change from 03/25/18. 0958 EKG #2 EKG attestation: Yes I reviewed and interpreted this EKG. EKG results narrative: NSR with rate of 68. NO STEMI. normal interlvals. 1200 no change from EKG 1
[2018-05-01 10:22] LABS: INR 1.1; Prothrombin Time 12.5 Seconds (9.4-12.1)
[2018-05-01] MEDS ORDERED: Isovue-370 500 ML INFUS..BTL IV ONE (10:22)
[2018-05-01 10:45] LABS: Troponin I < 0.03 ng/mL (< 0.04)
[2018-05-01 10:53] LABS: Alanine Aminotransferase 35 Units/L (7-52); Albumin 3.2 g/dL (3.5-5.7); Albumin/Globulin Ratio 1.1 (1.1-2.2); Alkaline Phosphatase 125 Units/L (34-104); Aspartate Amino Transferase 31 Units/L (13-39); BUN/Creatinine Ratio 16 (6-26); Bilirubin,Direct 0.2 mg/dL (0.0-0.2); Bilirubin,Indirect 0.1 mg/dL (0.0-1.2); Bilirubin,Total 0.3 mg/dL (0.3-1.0); Blood Urea Nitrogen 10 mg/dL (8-23); Calcium 8.5 mg/dL (8.6-10.3); Carbon Dioxide 24 mEq/L (23-29); Chloride 102 mEq/L (98-107); Ethanol 388 mg/dL (Less than 10); Glucose 168 mg/dL (70-105); Lipase 89 Units/L (11-82); Osmolality,Calculated 301 (280-300); Potassium 3.1 mEq/L (3.5-5.1); Sodium 144 mEq/L (136-145); Total Protein 6.2 g/dL (6.4-8.9); eGFR For African Americans > 60 (> 60); eGFR For Non-African Americans > 60 (> 60)
[2018-05-01] MEDS ORDERED: *HR* Atropine Sulfate 1 MG/10 ML SYRINGE IVP ONE (11:52)
[2018-05-01 12:33] LABS: Bilirubin,Urine Negative (Negative); Blood,Urine Moderate (Negative); Clarity,Urine Clear (Clear); Color,Urine Yellow (Yellow); Glucose,Urine (UA) Normal (Normal); Ketones,Urine Negative (Negative); Leukocyte Esterase,Urine Negative (Negative); Nitrite,Urine Negative (Negative); PH,Urine 6.5 pH Units (5.0-8.0); Protein,Urine 30 mg/dL (Neg-Trace); Specific Gravity,Urine > 1.030 (1.010-1.025); Urobilinogen,Urine Normal (Normal)
[2018-05-01 12:35] LABS: Bacteria,Urine Few per hpf (None-Few); Hyaline Casts,Urine None Seen per lpf (None-Few); Squamous Epithelial Cell,Urine Many per lpf (None-Few); WBC,Urine 15-30 per hpf (0-3)
[2018-05-01 12:57] LABS: Amphetamine Screen,Urine Negative ng/mL (Cutoff=1000); Barbiturate Screen,Urine Negative ng/mL (Cutoff=200); Benzodiazepines Screen,Urine Positive ng/mL (Cutoff=200); Cannabinoid Screen,Urine Negative ng/mL (Cutoff = 50); Cocaine Screen,Urine Negative ng/mL (Cutoff= 300); Opiate Screen,Urine Negative ng/mL (Cutoff=300); Phencyclidine Screen,Urine Negative ng/mL (Cutoff=25)
[2018-05-01] MEDS ORDERED: Naloxone 0.4 MG/ML INJ IVP PRN (13:43)
--- NOTE | 2018-05-01 14:02 | Internal Med History&Physical ---
Date of Encounter: 05/01/18 Time of Encounter: 13:55 Internal Medicine - H&P: HPI Chief complaint: Chest/Abd pain Admitted From: Home Plans for Post Hospital Care: Home History of present illness: Mr. Hernandez is a 62 year old male with history of HTN, smoker, and increased cholesterol. The patient here today with chest/abdominal pain. He states he abused alcohol for many years then he became clean for many years. He reports that his mothers and daughters passing, caused him to drink recently. He indicated that he has been drinking for the past 2 weeks. His last drink was at 10:00 this morning. He initially wasn't sure how much he was drinking per day, then he said "at least a half bottle of [employer] everyday". The patient is currently complaining of pain to abdomen-epigastric region. Will start the patient on protonix daily. While in the room the patient also repeatedly stated he was having dizziness. He states this has been present for a few days. Last ech was 03/26/2018, with EF 65-70%, with mild left ventricular diastolic dysfunction. Will get carotid US. Spoke with cardiology for recommendations, Dr. Josue, will get stress in am, if patient is able. Past Med Surg Social Fam HX - Past Medical History Medical history: COPD, hyperlipidemia, hypertension, other Additional medical history: ETOH abuse Psychiatric history: anxiety, depression - Past Surgical History Surgical History: non-contributory - Social History Smoking Status: Current every day smoker Smokeless Tobacco Status: No Alcohol use: heavy, recent Drug use: none - Family History Mother Living Status: Hx Family Respiratory Disorders: Yes (COPD) Hx Family Endocrine Disorder: Yes (DM) Internal Medicine - H&P: Meds No Known Home Drugs 05/01/18 [History] 3 Allergy/AdvReac Type Severity Reaction Status Date / Time No Known Allergies Allergy Verified 05/01/18 10:59 All Systems PM: A 10-system review of systems was performed and is negative for pertinent findings except as documented above in the HPI. - Constitutional Constitutional: no chills, no fever(s), no night sweats - EENT Eyes: no change in vision, no discharge, no pain, no photophobia Ears: no ear discharge, no ear pain, no tinnitus Nose, mouth and throat: no dysphagia, no nasal discharge, no neck pain, no sore throat - Cardiovascular Cardiovascular ROS IM: chest pain (However points to epigastric region), no diaphoresis, no dyspnea, no lightheadedness, no palpitations, no syncope - Respiratory Respiratory: no cough, no dyspnea, no wheezing, no excessive phlegm production - Gastrointestinal Gastrointestinal: abdominal pain (Epigastric region), nausea, vomiting, no diarrhea, no hematemesis, no hematochezia, no melena - Musculoskeletal Musculoskeletal ROS IM: no numbness, no tingling - Integumentary Integumentary IM: no rash, no unusual bruising - Neurological Neurological ROS: confusion, dizziness, no convulsions, no focal weakness, no numbness, no tingling, no tremor(s) - Hematologic/Lymphatic Hematologic/Lymphatic: no easy bruising - Constitutional Vitals: Temp Pulse Resp BP Pulse Ox 96.9 F L 68 15 116/96 93 05/01/18 10:01 05/01/18 11:45 05/01/18 11:45 05/01/18 11:45 05/01/18 11:45 General appearance: Present: A&O X 2 (Information not fully reliable, patient unclear attimes, can't remember) - Head Head exam: Present: atraumatic, normocephalic - Eye Eye exam: Present: PERRL, conjuntiva pink, sclera anicteric Pupils: Present: PERRL - Neck Neck exam general surgery: Present: supple, trachea midline. Absent: lymphadenopathy - Respiratory Respiratory exam: Present: CTAB. Absent: accessory muscle use, rales, rhonchi, wheezes - Cardiovascular Cardiovascular exam: Present: RRR, +S1, +S2. Absent: diastolic murmur, gallop, rubs, systolic murmur - GI/Abdominal GI/Abdominal exam: Present: normal bowel sounds, soft, tenderness (Epigastric region), no peritoneal signs. Absent: distended - Extremities Exam Extremities exam: Present: warm, radial pulses palpable and symmetrical. Absent : calf tenderness, cyanotic, pedal edema - Neurological Exam Neurological exam: Present: alert, CN II-XII intact, no focal deficits, strengths equal and symetr throughout. Absent: pronater drift, facial droop, speech deficit - Skin Skin exam: Present: dry, intact Internal Med - H&P Results - Labs CBC & Chem 7: 05/01/18 10:03 05/01/18 10:03 Labs: Short CBC 05/01/18 Range/Units 10:03 WBC 6.5 (4.3-11.1) K/mcL Hgb 16.3 (12.9-16.9) g/dL Hct 44.9 (37.5-50.1) % Plt Count 260 (140-400) K/mcL Neutrophils # 3.5 (1.6-8.9) K/mcL BMP 05/01/18 10:03 Sodium 144 Potassium 3.1 L Chloride 102 Carbon Dioxide 24 BUN 10 Creatinine 0.62 L Glucose 168 H Calcium 8.5 L Cardiac Enzymes 05/01/18 Range/Units 10:03 Troponin I < 0.03 (< 0.04) ng/mL Liver Function 05/01/18 Range/Units 10:03 Total Bilirubin 0.3 (0.3-1.0) mg/dL Direct Bilirubin 0.2 (0.0-0.2) mg/dL AST 31 (13-39) Units/L ALT 35 (7-52) Units/L Alkaline Phosphatase 125 H (34-104) Units/L Albumin 3.2 L (3.5-5.7) g/dL Urine 05/01/18 Range/Units 12:09 Urine Color Yellow (Yellow) Urine Clarity Clear (Clear) Urine pH 6.5 (5.0-8.0) pH Units Ur Specific [place] > 1.030 H (1.010-1.025) Urine Protein 30 H (Neg-Trace) mg/dL Urine Glucose (UA) Normal (Normal) mg/dL - Impressions ITS Impressions Chest X-Ray 05/01/18 09:53 IMPRESSION: No evidence for acute cardiopulmonary process. D/ / Ari Neumann MD / Ari Neumann MD Interpreting Provider: Ari Neumann MD Head CT 05/01/18 10:12 IMPRESSION: No acute intracranial abnormality. Diffuse atrophic changes with findings suggesting chronic microvascular ischemia D/ / Ck Bajwa MD / Ck Bajwa MD Interpreting Provider: Ck Bajwa MD Abdomen/Pelvis CT 05/01/18 10:22 IMPRESSION: No evidence for pulmonary embolism. Hepatic steatosis. Generalized bladder wall thickening. Correlation with urinalysis for possible cystitis. IMPRESSION: No evidence of pulmonary embolism or acute pulmonary abnormality. D/ / Urbano Osorio MD / Urbano Osorio MD Interpreting Provider: Urbano Osorio MD Chest CTA 05/01/18 10:22 IMPRESSION: No evidence for pulmonary embolism. Hepatic steatosis. Generalized bladder wall thickening. Correlation with urinalysis for possible cystitis. IMPRESSION: No evidence of pulmonary embolism or acute pulmonary abnormality. D/ / Urbano Osorio MD / Urbano Osorio MD Interpreting Provider: Urbano Osorio MD - Assessment and plan (1) Chest pain, atypical Current Visit: Yes Status: Acute Assessment and plan: The patient with c/o atypical CP possibly related to epigastric pain. Lipase is 86. CT of ABD/PELVIS showed hepatic steatosis Protonix iv daily No previous cardiac work-up Carotid US Stress test in am, if sober Cardiac serial enzymes Cardiac monitoring (2) Alcohol intoxication Current Visit: Yes Status: Acute Assessment and plan: CIWA scale with ativan Last drink was 10 am today Typically drinks at least 1/2 bottle Southern comfort daily Neuro checks q4 hours Social service consult Qualifiers: Complication of substance-induced condition: with unspecified complication Qualified Code(s): F10.929 - Alcohol use, unspecified with intoxication, unspecified (3) Syncope Current Visit: Yes Status: Acute Assessment and plan: Syncopal episodes unwitnessed Echo done 03/26/2018 that showed EF 65-70%, with mild left ventricular diastolic dysfunction. Ct of head negative for acute abnormalities Carotid US [employer] daily x 2 Exercise stress test in am, if sober Qualifiers: Syncope type: unspecified Qualified Code(s): R55 - Syncope and collapse (4) Alcohol dependence Current Visit: No Status: Chronic Assessment and plan: CIWA scale with ativan Last drink was 10 am today Typically drinks at least 1/2 bottle [employer] comfort daily Neuro checks q4 hours Social service consult Qualifiers: Substance use status: in withdrawal Complication of substance-induced condition: uncomplicated Qualified Code(s): F10.230 - Alcohol dependence with withdrawal, uncomplicated (5) Elevated d-dimer Current Visit: Yes Status: Acute Assessment and plan: Ct of chest was negative for PE. Unsure of etiology of elevated d-dimer - Time Spent With Patient Total time spent is greater than 50% in coordination of care (as documented) at patient's floor/unit and/or counseling patient: less than 15 minutes
[2018-05-01 14:25] LABS: Amylase 51 Units/L (29-103)
--- NOTE | 2018-05-01 14:58 | Electrocardiograph Report ---
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
[2018-05-01] MEDS: Pantoprazole 40 MG VIAL IVP SCH (15:10)
[2018-05-01] MEDS: Ondansetron 4 MG/2 ML VIAL IVP PRN ×2 (15:13→19:58)
[2018-05-01] MEDS: *HR* LORazepam 2 MG/ML VIAL IVP PRN ×4 (15:24→19:53)
[2018-05-02] MEDS: *HR* LORazepam 2 MG/ML VIAL IVP PRN ×2 (00:01→04:25)
[2018-05-02] MEDS: Ondansetron 4 MG/2 ML VIAL IVP PRN ×4 (00:47→19:48)
[2018-05-02 01:13] LABS: Basophils % 0.9 %; Eosinophils % 0.2 %; Hematocrit 42.1 % (37.5-50.1); Hemoglobin 14.8 g/dL (12.9-16.9); Immature Granulocytes % 0.5 % (0-4); Lymphocytes % 12.3 %; Mean Corpuscular HGB Conc 35.2 g/dL (31.6-35.5); Mean Corpuscular Hemoglobin 33.8 pg (28.0-33.3); Mean Corpuscular Volume 96.1 fL (83.0-100.0); Mean Platelet Volume 9.1 fL (9.4-12.4); Monocytes % 6.1 %; Platelet Count 238 K/mcL (140-400); Red Blood Count 4.38 M/mcL (4.19-5.50); Red Cell Distribution Width 14.5 % (11.5-14.5)
[2018-05-02 01:14] LABS: Basophils # 0.1 K/mcL (0.0-0.2); Lymphocytes # 1.6 K/mcL (0.6-4.6); Monocytes # 0.8 K/mcL (0.0-1.3); Neutrophils # 10.3 K/mcL (1.6-8.9)
[2018-05-02 01:37] LABS: BUN/Creatinine Ratio 18 (6-26); Blood Urea Nitrogen 11 mg/dL (8-23); Calcium 8.5 mg/dL (8.6-10.3); Carbon Dioxide 23 mEq/L (23-29); Chloride 103 mEq/L (98-107); Chol/HDL Ratio 3.5 (0-4.9); Cholesterol 157 mg/dL (< 200); Glucose 128 mg/dL (70-105); HDL Cholesterol 45 mg/dL (40-59); LDL Cholesterol,Calculated 78 mg/dL (0-99); Magnesium 1.1 mg/dL (1.6-2.6); Osmolality,Calculated 291 (280-300); Potassium 3.2 mEq/L (3.5-5.1); Sodium 140 mEq/L (136-145); Triglycerides 172 mg/dL (< 150); eGFR For African Americans > 60 (> 60); eGFR For Non-African Americans > 60 (> 60)
[2018-05-02] MEDS ORDERED: Regadenoson 0.4 MG/5 ML SYRINGE IVP ONE (07:30)
[2018-05-02] MEDS: Thiamine (B-1) 100 MG TABLET PO SCH (09:02)
[2018-05-02] MEDS: Vitamin B Complex/Vit C/Vit E 1 EACH TABLET PO SCH (09:02)
[2018-05-02] MEDS: Pantoprazole 40 MG VIAL IVP SCH (09:02)
[2018-05-02] MEDS: Folic Acid 1 MG TABLET PO SCH (09:02)
--- NOTE | 2018-05-02 09:28 | Internal Med Progress Note ---
Date of Encounter: 05/02/18 Time of Encounter: 09:27 - Assessment and plan (1) Alcohol withdrawal Current Visit: No Status: Acute Assessment and plan: History of alcohol dependence. appears to be in early withdrawal has had recent admission for the same also concerns for syncope as he is reporting unwitnessed falls; syncopal workup unremarkable. Falls likely 2/2 intoxication and deconditioning Last drink was approximately 10 AM yesterday Reports that he drinks at least one half a bottle of [place] comfort daily as well as beer sometimes in addition to that Presented intoxicated-EtOH on arrival 388 No longer intoxicated per my assessment Profoundly weak, decreased functional capacity and deconditioning secondary to chronic alcohol abuse In addition to this the patient appears to be in mild withdrawal with tremulousness, nausea, abdominal pain Denies any auditory/visual hallucinations, denies any suicidal/homicidal ideation cont CIWA protocol and give ativan PRN per protocol neuro checks per protocol social service director and nurse navigator following to assist with home health with therapy and potential outpatient ETOH cessation resources continuous tele b vitamin and folate supplementation consult to PT/OT Qualifiers: Complication of substance-induced condition: uncomplicated Qualified Code(s ): F10.230 - Alcohol dependence with withdrawal, uncomplicated (2) Alcohol intoxication Current Visit: Yes Status: Acute Assessment and plan: resolving, see above Qualifiers: Complication of substance-induced condition: with unspecified complication Qualified Code(s): F10.929 - Alcohol use, unspecified with intoxication, unspecified (3) Chest pain, atypical Current Visit: Yes Status: Acute Assessment and plan: Atypical chest pain Symptoms have resolved Denies any shortness of breath, diaphoresis or nausea Stress test this afternoon negative for ischemia Echocardiogram grossly unremarkable Troponins negative x4 ACS ruled out (4) Elevated d-dimer Current Visit: Yes Status: Acute Assessment and plan: elevated d-dimer etiology unclear h/o D-dimer elevation with negative workup No extremity swelling/tenderness or pain CTA chest negative for PE (5) Syncope Current Visit: Yes Status: Acute Assessment and plan: s/p fall while intoxicated unclear if true syncopal event Neurological exam is nonfocal CT of head negative for acute intracranial process Patient has had a stress test negative for ischemia TTE grossly unremarkable Carotid Dopplers with bilateral nonstenotic plaque Falls event likely caused by alcohol intoxication Patient has chronic alcoholism and is profoundly weak. Appears to have deconditioning with a decreased level of functional capacity Qualifiers: Syncope type: unspecified Qualified Code(s): R55 - Syncope and collapse (6) Alcohol dependence Current Visit: No Status: Chronic Assessment and plan: see above Qualifiers: Substance use status: in withdrawal Complication of substance-induced condition: uncomplicated Qualified Code(s): F10.230 - Alcohol dependence with withdrawal, uncomplicated - Time Spent With Patient Total time spent is greater than 50% in coordination of care (as documented) at patient's floor/unit and/or counseling patient: 25 - 35 minutes - Subjective Interval history: kris armenta changes overnight. Reports that he still feel nauseous and anxious. Denies any chest pain, discomfort or shortness of breath. - Constitutional Vitals: Temp Pulse Resp BP Pulse Ox 99.4 F 90 16 185/102 92 05/02/18 06:57 05/02/18 06:57 05/02/18 06:57 05/02/18 06:57 05/02/18 06:57 General appearance: Present: A&O X 2 (Information not fully reliable, patient unclear attimes, can't remember) - Head Head exam: Present: atraumatic, normocephalic - Eye Eye exam: Present: PERRL, conjuntiva pink, sclera anicteric Pupils: Present: PERRL - Neck Neck exam general surgery: Present: supple, trachea midline. Absent: lymphadenopathy - Respiratory Respiratory exam: Present: CTAB. Absent: accessory muscle use, rales, rhonchi, wheezes - Cardiovascular Cardiovascular exam: Present: RRR, +S1, +S2. Absent: diastolic murmur, gallop, rubs, systolic murmur - GI/Abdominal GI/Abdominal exam: Present: normal bowel sounds, soft, no peritoneal signs. Absent: distended, tenderness - Extremities Exam Extremities exam: Present: warm, radial pulses palpable and symmetrical. Absent : calf tenderness, cyanotic, pedal edema - Neurological Exam Neurological exam: Present: alert, CN II-XII intact, oriented X3, no focal deficits. Absent: pronater drift, facial droop, speech deficit Additional comments: Mild tremulousness - Psychiatric Psychiatric exam: Present: anxious, depressed - Skin Skin exam: Present: dry, intact Internal Medicine: Result - Labs CBC & Chem 7: 05/02/18 00:42 05/02/18 00:42 Labs: Short CBC 05/02/18 Range/Units 00:42 WBC 12.9 H D (4.3-11.1) K/mcL Hgb 14.8 D (12.9-16.9) g/dL Hct 42.1 (37.5-50.1) % Plt Count 238 (140-400) K/mcL Neutrophils # 10.3 H (1.6-8.9) K/mcL BMP 05/02/18 00:42 Sodium 140 Potassium 3.2 L Chloride 103 Carbon Dioxide 23 BUN 11 Creatinine 0.62 L Glucose 128 H Calcium 8.5 L Cardiac Enzymes 05/01/18 05/02/18 05/02/18 Range/Units 18:13 00:42 06:18 Troponin I < 0.03 < 0.03 < 0.03 (< 0.04) ng/mL - ABG Interpretation ABG results: PT/INR, D-dimer PT 12.5 Seconds (9.4-12.1) H 05/01/18 10:03 D-Dimer 1135 ng/mLFEU (0-500) H 05/01/18 10:03 - VTE Documentation of Mechanical Device: Venous foot pump, device Consult Discharge Plan - Plan Referrals: Darlene Spears DO [Resident] - 05/10/18 2:00 pm
[2018-05-03] MEDS: Nicotine 21 MG PATCH.TD24 TD SCH (04:08)
[2018-05-03] MEDS: Ondansetron 4 MG/2 ML VIAL IVP PRN ×3 (04:09→20:17)
--- NOTE | 2018-05-03 06:38 | Electrocardiograph Report ---
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
--- NOTE | 2018-05-03 06:51 | Electrocardiograph Report ---
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
[2018-05-03] MEDS: Pantoprazole 40 MG VIAL IVP SCH (08:09)
[2018-05-03] MEDS: Thiamine (B-1) 100 MG TABLET PO SCH (08:09)
[2018-05-03] MEDS: Vitamin B Complex/Vit C/Vit E 1 EACH TABLET PO SCH (08:09)
[2018-05-03] MEDS: Folic Acid 1 MG TABLET PO SCH (08:09)
[2018-05-03 08:22] LABS: Basophils # 0.1 K/mcL (0.0-0.2); Basophils % 0.6 %; Eosinophils # 0.2 K/mcL (0.0-0.6); Eosinophils % 2.7 %; Hematocrit 41.2 % (37.5-50.1); Hemoglobin 14.6 g/dL (12.9-16.9); Immature Granulocytes % 0.7 % (0-4); Lymphocytes # 1.6 K/mcL (0.6-4.6); Lymphocytes % 17.9 %; Mean Corpuscular HGB Conc 35.4 g/dL (31.6-35.5); Mean Corpuscular Hemoglobin 34.3 pg (28.0-33.3); Mean Corpuscular Volume 96.7 fL (83.0-100.0); Mean Platelet Volume 9.2 fL (9.4-12.4); Monocytes # 0.4 K/mcL (0.0-1.3); Monocytes % 4.1 %; Neutrophils # 6.6 K/mcL (1.6-8.9); Platelet Count 189 K/mcL (140-400); Red Blood Count 4.26 M/mcL (4.19-5.50); Red Cell Distribution Width 14.5 % (11.5-14.5)
--- NOTE | 2018-05-03 10:16 | Internal Med Progress Note ---
Date of Encounter: 05/03/18 Time of Encounter: 10:15 - Assessment and plan (1) Alcohol withdrawal Current Visit: Yes Status: Acute Assessment and plan: History of alcohol dependence Yesterday the patient appeared to be having signs and symptoms of withdrawal however these have resolved as of today has had recent admission for alcohol dependence and withdrawal There was some concern for syncope as he is reporting unwitnessed falls; syncopal workup unremarkable. Falls likely 2/2 intoxication and deconditioning Last drink was approximately 10 AM 05/01/18 Reports that he drinks at least one half a bottle of [place] daily as well as beer sometimes in addition to that Presented intoxicated-EtOH on arrival 388 Continues to be Profoundly weak, decreased functional capacity and deconditioning secondary to chronic alcohol abuse Denies any auditory/visual hallucinations, denies any suicidal/homicidal ideation cont CIWA protocol and give ativan PRN per protocol neuro checks per protocol ancillary services manager following to provide resources for counseling continuous tele b vitamin and folate supplementation consult to PT/OT Qualifiers: Complication of substance-induced condition: uncomplicated Qualified Code(s ): F10.230 - Alcohol dependence with withdrawal, uncomplicated (2) Alcohol intoxication Current Visit: Yes Status: Acute Assessment and plan: resolving, see above Qualifiers: Complication of substance-induced condition: with unspecified complication Qualified Code(s): F10.929 - Alcohol use, unspecified with intoxication, unspecified (3) Chest pain, atypical Current Visit: Yes Status: Resolved Assessment and plan: Patient presented with Atypical chest pain Symptoms have resolved Denies any shortness of breath, diaphoresis or nausea Stress test this afternoon negative for ischemia Echocardiogram grossly unremarkable Troponins negative x4 ACS ruled out (4) Elevated d-dimer Current Visit: Yes Status: Acute Assessment and plan: elevated d-dimer etiology unclear h/o D-dimer elevation with negative workup Continues to deny extremity swelling/tenderness or pain CTA chest negative for PE (5) Syncope Current Visit: Yes Status: Resolved Assessment and plan: s/p fall while intoxicated unclear if true syncopal event Neurological exam is nonfocal CT of head negative for acute intracranial process Patient has had a stress test negative for ischemia TTE grossly unremarkable Carotid Dopplers with bilateral nonstenotic plaque I strongly believe that his falls events are likely caused by alcohol intoxication Patient has chronic alcohol abuse and deconditioning and is profoundly weak Appears to have deconditioning with a decreased level of functional capacity and would benefit from PT/OT while inpatient and at discharge Qualifiers: Syncope type: unspecified Qualified Code(s): R55 - Syncope and collapse (6) Alcohol dependence Current Visit: No Status: Chronic Assessment and plan: see above Qualifiers: Substance use status: in withdrawal Complication of substance-induced condition: uncomplicated Qualified Code(s): F10.230 - Alcohol dependence with withdrawal, uncomplicated - Time Spent With Patient Total time spent is greater than 50% in coordination of care (as documented) at patient's floor/unit and/or counseling patient: 25 - 35 minutes - Subjective Interval history: No acute changes overnight. Reports that he still feel nauseous and anxious. Denies any chest pain, discomfort or shortness of breath. - Constitutional Vitals: Temp Pulse Resp BP Pulse Ox 98.8 F 80 16 170/108 92 05/03/18 07:37 05/03/18 07:37 05/03/18 07:37 05/03/18 09:23 05/03/18 07:37 General appearance: Present: A&O X 2 (Information not fully reliable, patient unclear attimes, can't remember) - Head Head exam: Present: atraumatic, normocephalic - Eye Eye exam: Present: PERRL, conjuntiva pink, sclera anicteric Pupils: Present: PERRL - Neck Neck exam general surgery: Present: supple, trachea midline. Absent: lymphadenopathy - Respiratory Respiratory exam: Present: CTAB. Absent: accessory muscle use, rales, rhonchi, wheezes - Cardiovascular Cardiovascular exam: Present: RRR, +S1, +S2. Absent: diastolic murmur, gallop, rubs, systolic murmur - GI/Abdominal GI/Abdominal exam: Present: normal bowel sounds, soft, no peritoneal signs. Absent: distended, tenderness - Extremities Exam Extremities exam: Present: warm, radial pulses palpable and symmetrical. Absent : calf tenderness, cyanotic, pedal edema - Neurological Exam Neurological exam: Present: CN II-XII intact, oriented X3, no focal deficits. Absent: pronater drift, facial droop, speech deficit - Skin Skin exam: Present: dry, intact Internal Medicine: Result - Labs CBC & Chem 7: 05/03/18 08:07 05/03/18 10:43 Labs: Short CBC 05/03/18 Range/Units 08:07 WBC 8.9 (4.3-11.1) K/mcL Hgb 14.6 (12.9-16.9) g/dL Hct 41.2 (37.5-50.1) % Plt Count 189 (140-400) K/mcL Neutrophils # 6.6 (1.6-8.9) K/mcL - ABG Interpretation ABG results: PT/INR, D-dimer PT 12.5 Seconds (9.4-12.1) H 05/01/18 10:03 D-Dimer 1135 ng/mLFEU (0-500) H 05/01/18 10:03 - VTE Documentation of Mechanical Device: Venous foot pump, device Consult Discharge Plan - Plan Referrals: Darlene Spears DO [Resident] - 05/10/18 2:00 pm
[2018-05-03 11:31] LABS: BUN/Creatinine Ratio 17 (6-26); Blood Urea Nitrogen 10 mg/dL (8-23); Carbon Dioxide 25 mEq/L (23-29); Chloride 104 mEq/L (98-107); Glucose 128 mg/dL (70-105); Osmolality,Calculated 281 (280-300); Potassium 3.3 mEq/L (3.5-5.1); Sodium 135 mEq/L (136-145); eGFR For African Americans > 60 (> 60); eGFR For Non-African Americans > 60 (> 60)
[2018-05-04] MEDS: Ondansetron 4 MG/2 ML VIAL IVP PRN ×2 (03:58→21:21)
[2018-05-04 06:49] LABS: Basophils # 0.1 K/mcL (0.0-0.2); Basophils % 0.8 %; Eosinophils # 0.3 K/mcL (0.0-0.6); Eosinophils % 3.4 %; Hematocrit 41.4 % (37.5-50.1); Hemoglobin 14.3 g/dL (12.9-16.9); Immature Granulocytes % 0.7 % (0-4); Lymphocytes # 1.5 K/mcL (0.6-4.6); Lymphocytes % 17.6 %; Mean Corpuscular HGB Conc 34.5 g/dL (31.6-35.5); Mean Corpuscular Hemoglobin 33.5 pg (28.0-33.3); Mean Platelet Volume 9.3 fL (9.4-12.4); Monocytes # 0.4 K/mcL (0.0-1.3); Monocytes % 4.3 %; Neutrophils # 6.2 K/mcL (1.6-8.9); Platelet Count 161 K/mcL (140-400); Red Blood Count 4.27 M/mcL (4.19-5.50); Red Cell Distribution Width 14.4 % (11.5-14.5); Segmented Neutrophils % 73.2 %
[2018-05-04 07:11] LABS: BUN/Creatinine Ratio 16 (6-26); Blood Urea Nitrogen 8 mg/dL (8-23); Calcium 8.6 mg/dL (8.6-10.3); Carbon Dioxide 21 mEq/L (23-29); Chloride 105 mEq/L (98-107); Glucose 99 mg/dL (70-105); Osmolality,Calculated 278 (280-300); Potassium 3.2 mEq/L (3.5-5.1); Sodium 135 mEq/L (136-145); eGFR For African Americans > 60 (> 60); eGFR For Non-African Americans > 60 (> 60)
[2018-05-04] MEDS: Pantoprazole 40 MG VIAL IVP SCH (08:03)
[2018-05-04] MEDS: Thiamine (B-1) 100 MG TABLET PO SCH (08:03)
[2018-05-04] MEDS: Vitamin B Complex/Vit C/Vit E 1 EACH TABLET PO SCH (08:04)
[2018-05-04] MEDS: Nicotine 21 MG PATCH.TD24 TD SCH (08:04)
[2018-05-04] MEDS: Folic Acid 1 MG TABLET PO SCH (08:04)
[2018-05-04] MEDS: *HR* LORazepam 2 MG/ML VIAL IVP PRN (08:04)
[2018-05-04] MEDS: Sucralfate 1 GM TABLET PO SCH ×3 (14:27→21:21)
--- NOTE | 2018-05-04 16:34 | Internal Med Progress Note ---
Date of Encounter: 05/04/18 Time of Encounter: 16:32 - Assessment and plan (1) Alcohol withdrawal Current Visit: Yes Status: Acute Assessment and plan: History of alcohol dependence No longer having S/SX of withdrawal There was some concern for syncope as he is reporting unwitnessed falls; syncopal workup unremarkable. Falls likely 2/2 intoxication and deconditioning Last drink was approximately 10 AM 05/01/18 Reports that he drinks at least one half a bottle of [place] daily as well as beer sometimes in addition to that Presented intoxicated-EtOH on arrival 388 Overall, his weakness appears to be improving Continues to have a decreased functional capacity and deconditioning secondary to chronic alcohol abuse Denies any auditory/visual hallucinations, denies any suicidal/homicidal ideation cont CIWA protocol and give ativan PRN per protocol neuro checks per protocol child and family services worker following to provide resources for counseling continuous tele b vitamin and folate supplementation PT and OT seeing in consultation, appreciate recommendations. Recommend DC to SNF for rehabilitation. Patient 2 days d/c to [facility] for inpatient rehabilitation Qualifiers: Complication of substance-induced condition: uncomplicated Qualified Code(s ): F10.230 - Alcohol dependence with withdrawal, uncomplicated (2) Alcohol intoxication Current Visit: Yes Status: Acute Assessment and plan: Resolved Qualifiers: Complication of substance-induced condition: with unspecified complication Qualified Code(s): F10.929 - Alcohol use, unspecified with intoxication, unspecified (3) Chest pain, atypical Current Visit: Yes Status: Resolved Assessment and plan: Chest pain symptoms were atypical, self-limited and resolved, no return of symptoms throughout the stay Continues to deny any shortness of breath, diaphoresis or nausea Stress test negative for ischemia Echocardiogram grossly unremarkable Troponins negative x4 ACS ruled out (4) Elevated d-dimer Current Visit: Yes Status: Acute Assessment and plan: elevated d-dimer etiology unclear h/o D-dimer elevation with negative workup Continues to deny extremity swelling/tenderness or pain CTA chest negative for PE (5) Syncope Current Visit: Yes Status: Resolved Assessment and plan: s/p fall while intoxicated, does not appear to be syncopal cause Neurological exam is nonfocal CT of head negative for acute intracranial process Patient has had a stress test negative for ischemia TTE grossly unremarkable Carotid Dopplers with bilateral nonstenotic plaque I strongly believe that his falls events are likely caused by alcohol intoxication Patient has chronic alcohol abuse and deconditioning and is profoundly weak Appears to have deconditioning with a decreased level of functional capacity and would benefit from PT/OT while inpatient and at discharge Qualifiers: Syncope type: unspecified Qualified Code(s): R55 - Syncope and collapse (6) Alcohol dependence Current Visit: No Status: Chronic Assessment and plan: see above Qualifiers: Substance use status: in withdrawal Complication of substance-induced condition: uncomplicated Qualified Code(s): F10.230 - Alcohol dependence with withdrawal, uncomplicated - Time Spent With Patient Total time spent is greater than 50% in coordination of care (as documented) at patient's floor/unit and/or counseling patient: 25 - 35 minutes - Subjective Interval history: No acute changes overnight. Reports that he still feel nauseous and anxious. Denies any auditory or visual hallucinations, suicidal or homicidal ideation. He is reporting some mild abdominal discomfort. Denies any chest pain, discomfort or shortness of breath. - Constitutional Vitals: Temp Pulse Resp BP Pulse Ox 98.0 F 59 14 145/90 94 05/04/18 15:39 05/04/18 15:39 05/04/18 15:39 05/04/18 15:39 05/04/18 15:39 General appearance: Present: A&O X 2 (Information not fully reliable, patient unclear attimes, can't remember) - Head Head exam: Present: atraumatic, normocephalic - Eye Eye exam: Present: PERRL, conjuntiva pink, sclera anicteric Pupils: Present: PERRL - Neck Neck exam general surgery: Present: supple, trachea midline. Absent: lymphadenopathy - Respiratory Respiratory exam: Present: CTAB. Absent: accessory muscle use, rales, rhonchi, wheezes - Cardiovascular Cardiovascular exam: Present: RRR, +S1, +S2. Absent: diastolic murmur, gallop, rubs, systolic murmur - GI/Abdominal GI/Abdominal exam: Present: normal bowel sounds, soft, no peritoneal signs. Absent: distended, firm, guarding, tenderness - Extremities Exam Extremities exam: Present: warm, radial pulses palpable and symmetrical. Absent : calf tenderness, cyanotic, pedal edema - Neurological Exam Neurological exam: Present: CN II-XII intact, oriented X3, no focal deficits. Absent: pronater drift, facial droop, speech deficit - Skin Skin exam: Present: dry, intact Internal Medicine: Result - Labs CBC & Chem 7: 05/04/18 06:34 05/04/18 06:34 Labs: Short CBC 05/04/18 Range/Units 06:34 WBC 8.5 (4.3-11.1) K/mcL Hgb 14.3 (12.9-16.9) g/dL Hct 41.4 (37.5-50.1) % Plt Count 161 (140-400) K/mcL Neutrophils # 6.2 (1.6-8.9) K/mcL BMP 05/04/18 06:34 Sodium 135 L Potassium 3.2 L Chloride 105 Carbon Dioxide 21 L BUN 8 Creatinine 0.49 L Glucose 99 Calcium 8.6 - ABG Interpretation ABG results: PT/INR, D-dimer PT 12.5 Seconds (9.4-12.1) H 05/01/18 10:03 D-Dimer 1135 ng/mLFEU (0-500) H 05/01/18 10:03 - VTE Documentation of Mechanical Device: Venous foot pump, device Consult Discharge Plan - Plan Referrals: Darlene Spears DO [Resident] - 05/10/18 2:00 pm
[2018-05-05 06:32] LABS: Basophils # 0.1 K/mcL (0.0-0.2); Basophils % 0.8 %; Eosinophils # 0.3 K/mcL (0.0-0.6); Hematocrit 40.5 % (37.5-50.1); Immature Granulocytes % 1.5 % (0-4); Lymphocytes # 1.9 K/mcL (0.6-4.6); Lymphocytes % 22.3 %; Mean Corpuscular HGB Conc 34.6 g/dL (31.6-35.5); Mean Corpuscular Hemoglobin 34.1 pg (28.0-33.3); Mean Corpuscular Volume 98.5 fL (83.0-100.0); Mean Platelet Volume 9.3 fL (9.4-12.4); Monocytes # 0.5 K/mcL (0.0-1.3); Monocytes % 6.2 %; Neutrophils # 5.6 K/mcL (1.6-8.9); Platelet Count 146 K/mcL (140-400); Red Blood Count 4.11 M/mcL (4.19-5.50); Red Cell Distribution Width 14.7 % (11.5-14.5); Segmented Neutrophils % 65.2 %
[2018-05-05 06:54] LABS: BUN/Creatinine Ratio 21 (6-26); Blood Urea Nitrogen 12 mg/dL (8-23); Calcium 8.5 mg/dL (8.6-10.3); Carbon Dioxide 23 mEq/L (23-29); Chloride 107 mEq/L (98-107); Glucose 99 mg/dL (70-105); Osmolality,Calculated 282 (280-300); Potassium 3.4 mEq/L (3.5-5.1); Sodium 136 mEq/L (136-145); eGFR For African Americans > 60 (> 60); eGFR For Non-African Americans > 60 (> 60)
[2018-05-05] MEDS: Pantoprazole 40 MG VIAL IVP SCH (08:36)
[2018-05-05] MEDS: Vitamin B Complex/Vit C/Vit E 1 EACH TABLET PO SCH (08:37)
[2018-05-05] MEDS: amLODIPine 5 MG TABLET PO SCH (08:37)
[2018-05-05] MEDS: Sucralfate 1 GM TABLET PO SCH ×4 (08:37→21:15)
[2018-05-05] MEDS: Thiamine (B-1) 100 MG TABLET PO SCH (08:37)
[2018-05-05] MEDS: Nicotine 21 MG PATCH.TD24 TD SCH (08:37)
[2018-05-05] MEDS: Folic Acid 1 MG TABLET PO SCH (08:37)
--- NOTE | 2018-05-05 10:02 | Event Note ---
Date of Encounter: 05/05/18 Time of Encounter: 10:01 Patient discharging to ECF today. Patient was discharged yesterday however patient did not leave for ECF facility for any reason. No changes in condition overnight. Continue with discharge today as planned
[2018-05-06 04:55] LABS: Basophils # 0.1 K/mcL (0.0-0.2); Basophils % 0.7 %; Eosinophils # 0.3 K/mcL (0.0-0.6); Eosinophils % 3.3 %; Hematocrit 42.5 % (37.5-50.1); Immature Granulocytes % 1.6 % (0-4); Lymphocytes # 2.4 K/mcL (0.6-4.6); Lymphocytes % 24.9 %; Mean Corpuscular HGB Conc 35.3 g/dL (31.6-35.5); Mean Corpuscular Hemoglobin 35.1 pg (28.0-33.3); Mean Corpuscular Volume 99.5 fL (83.0-100.0); Mean Platelet Volume 9.6 fL (9.4-12.4); Monocytes # 0.6 K/mcL (0.0-1.3); Monocytes % 6.3 %; Neutrophils # 6.2 K/mcL (1.6-8.9); Platelet Count 153 K/mcL (140-400); Red Blood Count 4.27 M/mcL (4.19-5.50); Red Cell Distribution Width 14.9 % (11.5-14.5); Segmented Neutrophils % 63.2 %
[2018-05-06 05:18] LABS: BUN/Creatinine Ratio 33 (6-26); Blood Urea Nitrogen 14 mg/dL (8-23); Calcium 8.9 mg/dL (8.6-10.3); Carbon Dioxide 22 mEq/L (23-29); Chloride 107 mEq/L (98-107); Glucose 102 mg/dL (70-105); Osmolality,Calculated 285 (280-300); Potassium 3.5 mEq/L (3.5-5.1); Sodium 137 mEq/L (136-145); eGFR For African Americans > 60 (> 60); eGFR For Non-African Americans > 60 (> 60)
[2018-05-06] MEDS: Sucralfate 1 GM TABLET PO SCH ×4 (06:40→20:35)
[2018-05-06] MEDS: amLODIPine 5 MG TABLET PO SCH (08:10)
[2018-05-06] MEDS: Vitamin B Complex/Vit C/Vit E 1 EACH TABLET PO SCH (08:10)
[2018-05-06] MEDS: Nicotine 21 MG PATCH.TD24 TD SCH (08:10)
[2018-05-06] MEDS: Pantoprazole 40 MG VIAL IVP SCH (08:10)
[2018-05-06] MEDS: Thiamine (B-1) 100 MG TABLET PO SCH (08:10)
[2018-05-06] MEDS: Folic Acid 1 MG TABLET PO SCH (08:10)
--- NOTE | 2018-05-06 11:08 | Internal Med Progress Note ---
Date of Encounter: 05/06/18 Time of Encounter: 11:05 - Assessment and plan (1) Alcohol withdrawal Current Visit: Yes Status: Acute Assessment and plan: History of alcohol dependence No longer having S/SX of withdrawal There was some concern for syncope as he is reporting unwitnessed falls; syncopal workup unremarkable. Falls likely 2/2 intoxication and deconditioning Last drink was approximately 10 AM 05/01/18 Reports that he drinks at least one half a bottle of [place] comfort daily as well as beer sometimes in addition to that Presented intoxicated-EtOH on arrival 388 Overall, his weakness appears to be improving Continues to have a decreased functional capacity and deconditioning secondary to chronic alcohol abuse Denies any auditory/visual hallucinations, denies any suicidal/homicidal ideation cont CIWA protocol and give ativan PRN per protocol neuro checks per protocol director of business services following to provide resources for counseling continuous tele b vitamin and folate supplementation PT and OT seeing in consultation, appreciate recommendations. Recommend DC to SNF for rehabilitation. Patient 2 days d/c to [facility] for inpatient rehabilitation 05/06- Improving daily. No s/sx of withdrawal today. Weakness improving, ambulating in room with staff help. PT/OT cont to see while inpatient. D/C to rehab at [facility] tomorrow. D/T admission with active withdrawal, concern for syncope and weakness patient changed to inpatient status Qualifiers: Complication of substance-induced condition: uncomplicated Qualified Code(s ): F10.230 - Alcohol dependence with withdrawal, uncomplicated (2) Alcohol intoxication Current Visit: Yes Status: Acute Assessment and plan: Resolved Qualifiers: Complication of substance-induced condition: with unspecified complication Qualified Code(s): F10.929 - Alcohol use, unspecified with intoxication, unspecified (3) Chest pain, atypical Current Visit: Yes Status: Resolved Assessment and plan: Chest pain symptoms were atypical, self-limited and resolved, no return of symptoms throughout the stay Continues to deny any shortness of breath, diaphoresis or nausea Stress test negative for ischemia Echocardiogram grossly unremarkable Troponins negative x4 ACS ruled out 05/06- no return of CP, no acute changes. see above (4) Elevated d-dimer Current Visit: Yes Status: Acute Assessment and plan: elevated d-dimer etiology unclear h/o D-dimer elevation with negative workup Continues to deny extremity swelling/tenderness or pain CTA chest negative for PE (5) Syncope Current Visit: Yes Status: Resolved Assessment and plan: s/p fall while intoxicated, does not appear to be syncopal cause Neurological exam is nonfocal CT of head negative for acute intracranial process Patient has had a stress test negative for ischemia TTE grossly unremarkable Carotid Dopplers with bilateral nonstenotic plaque I strongly believe that his falls events are likely caused by alcohol intoxication Patient has chronic alcohol abuse and deconditioning and is profoundly weak Appears to have deconditioning with a decreased level of functional capacity and would benefit from PT/OT while inpatient and at discharge 05/06- No return of syncopal events. Likely 2/2 intoxication and weakness with nutritional deficits associated with ETOH abuse. Should d/c to [facility] for rehab tomorrow see above for plan. Qualifiers: Syncope type: unspecified Qualified Code(s): R55 - Syncope and collapse (6) Alcohol dependence Current Visit: No Status: Chronic Assessment and plan: see above Qualifiers: Substance use status: in withdrawal Complication of substance-induced condition: uncomplicated Qualified Code(s): F10.230 - Alcohol dependence with withdrawal, uncomplicated (7) Weakness Current Visit: Yes Status: Acute Assessment and plan: see above - Time Spent With Patient Total time spent is greater than 50% in coordination of care (as documented) at patient's floor/unit and/or counseling patient: less than 15 minutes - Subjective Interval history: No acute changes overnight. - Constitutional Vitals: Temp Pulse Resp BP Pulse Ox 98.7 F 63 15 157/88 97 05/06/18 06:59 05/06/18 06:59 05/06/18 06:59 05/06/18 06:59 05/06/18 06:59 General appearance: Present: A&O X 2 (Information not fully reliable, patient unclear attimes, can't remember) - Head Head exam: Present: atraumatic, normocephalic - Eye Eye exam: Present: PERRL, conjuntiva pink, sclera anicteric Pupils: Present: PERRL - Neck Neck exam general surgery: Present: supple, trachea midline. Absent: lymphadenopathy - Respiratory Respiratory exam: Present: CTAB. Absent: accessory muscle use, rales, rhonchi, wheezes - Cardiovascular Cardiovascular exam: Present: RRR, +S1, +S2. Absent: diastolic murmur, gallop, rubs, systolic murmur - GI/Abdominal GI/Abdominal exam: Present: normal bowel sounds, soft, no peritoneal signs. Absent: distended, tenderness - Extremities Exam Extremities exam: Present: warm, radial pulses palpable and symmetrical. Absent : calf tenderness, cyanotic, pedal edema - Neurological Exam Neurological exam: Present: CN II-XII intact, oriented X3, no focal deficits. Absent: pronater drift, facial droop, speech deficit - Skin Skin exam: Present: dry, intact Internal Medicine: Result - Labs CBC & Chem 7: 05/06/18 04:26 05/06/18 04:26 Labs: Short CBC 05/06/18 Range/Units 04:26 WBC 9.8 (4.3-11.1) K/mcL Hgb 15.0 (12.9-16.9) g/dL Hct 42.5 (37.5-50.1) % Plt Count 153 (140-400) K/mcL Neutrophils # 6.2 (1.6-8.9) K/mcL BMP 05/06/18 04:26 Sodium 137 Potassium 3.5 Chloride 107 Carbon Dioxide 22 L BUN 14 Creatinine 0.43 L Glucose 102 Calcium 8.9 Liver Function 05/06/18 Range/Units 04:26 Alkaline Phosphatase 39 (34-104) Units/L - ABG Interpretation ABG results: PT/INR, D-dimer PT 12.5 Seconds (9.4-12.1) H 05/01/18 10:03 D-Dimer 1135 ng/mLFEU (0-500) H 05/01/18 10:03 - VTE Documentation of Mechanical Device: Venous foot pump, device Consult Discharge Plan - Plan Referrals: Darlene Spears DO [Resident] - 05/10/18 2:00 pm
[2018-05-06] MEDS ORDERED: Naloxone 0.4 MG/ML INJ IVP PRN (11:10)
[2018-05-07] MEDS: Thiamine (B-1) 100 MG TABLET PO SCH (08:31)
[2018-05-07] MEDS: Folic Acid 1 MG TABLET PO SCH (08:31)
[2018-05-07] MEDS: Vitamin B Complex/Vit C/Vit E 1 EACH TABLET PO SCH (08:31)
[2018-05-07] MEDS: Sucralfate 1 GM TABLET PO SCH ×4 (08:31→21:12)
[2018-05-07] MEDS: amLODIPine 5 MG TABLET PO SCH (08:31)
[2018-05-07] MEDS: Pantoprazole 40 MG VIAL IVP SCH (08:31)
[2018-05-07] MEDS: Nicotine 21 MG PATCH.TD24 TD SCH (08:31)
--- NOTE | 2018-05-07 09:54 | Internal Med Progress Note ---
Date of Encounter: 05/07/18 Time of Encounter: 09:51 - Assessment and plan (1) Alcohol withdrawal Current Visit: Yes Status: Acute Assessment and plan: History of alcohol dependence No longer having S/SX of withdrawal There was some concern for syncope as he is reporting unwitnessed falls; syncopal workup unremarkable. Falls likely 2/2 intoxication and deconditioning Last drink was approximately 10 AM 05/01/18 Reports that he drinks at least one half a bottle of [employer] comfort daily as well as beer sometimes in addition to that Presented intoxicated-EtOH on arrival 388 Overall, his weakness appears to be improving Continues to have a decreased functional capacity and deconditioning secondary to chronic alcohol abuse Denies any auditory/visual hallucinations, denies any suicidal/homicidal ideation cont CIWA protocol and give ativan PRN per protocol neuro checks per protocol environmental services associate following to provide resources for counseling continuous tele b vitamin and folate supplementation PT and OT seeing in consultation, appreciate recommendations. Recommend DC to SNF for rehabilitation. [facility]06- Improving daily. No s/sx of withdrawal today. Weakness improving, ambulating in room with staff help. PT/OT cont to see while inpatient. D/C to rehab at [facility] tomorrow. D/T admission with active withdrawal, concern for syncope and weakness patient changed to inpatient status 05/07- no S/SX of withdrawal today, continuing to improve daily. Weakness also improving, patient ambulating in room with standby assist. Will continue to benefit from PT/OT services while inpatient due to deconditioning and diminished functional capacity secondary to malnutrition and alcohol abuse. [facility] Patient will benefit from inpatient rehabilitation. environmental services associate following, providing options for outpatient counseling upon discharge. Qualifiers: Complication of substance-induced condition: uncomplicated Qualified Code(s ): F10.230 - Alcohol dependence with withdrawal, uncomplicated (2) Alcohol intoxication Current Visit: Yes Status: Acute Assessment and plan: Resolved Qualifiers: Complication of substance-induced condition: with unspecified complication Qualified Code(s): F10.929 - Alcohol use, unspecified with intoxication, unspecified (3) Chest pain, atypical Current Visit: Yes Status: Resolved Assessment and plan: Chest pain symptoms were atypical, self-limited and resolved, no return of symptoms throughout the stay Continues to deny any shortness of breath, diaphoresis or nausea Stress test negative for ischemia Echocardiogram grossly unremarkable Troponins negative x4 ACS ruled out 05/06- no return of CP, no acute changes. see above 05/07-no return of chest pain throughout stay, no acute changes. See plan above (4) Elevated d-dimer Current Visit: Yes Status: Acute Assessment and plan: elevated d-dimer etiology unclear h/o D-dimer elevation with negative workup Continues to deny extremity swelling/tenderness or pain CTA chest negative for PE 05/07-continues to have no signs or symptoms of extremity swelling/tenderness or pain. Not in any respiratory distress. Unclear why d-dimer was elevated during this admission. However has had d-dimer elevations in the past. Continue to monitor for signs or symptoms of extremity swelling/pain or tenderness and difficulty breathing (5) Syncope Current Visit: Yes Status: Resolved Assessment and plan: s/p fall while intoxicated, does not appear to be syncopal cause Neurological exam is nonfocal CT of head negative for acute intracranial process Patient has had a stress test negative for ischemia TTE grossly unremarkable Carotid Dopplers with bilateral nonstenotic plaque I strongly believe that his falls events are likely caused by alcohol intoxication Patient has chronic alcohol abuse and deconditioning and is profoundly weak Appears to have deconditioning with a decreased level of functional capacity and would benefit from PT/OT while inpatient and at discharge 05/06- No return of syncopal events. Likely 2/2 intoxication and weakness with nutritional deficits associated with ETOH abuse. [facility] see above for plan. 05/07-denies any return of syncopal events. Patient able tingling around the room with assistance. Falls likely not caused by syncopal event instead caused by alcohol intoxication with history of alcohol abuse. Continues to be we can have diminished functional capacity due to deconditioning with poor nutrition and alcohol abuse. [facility]. Discussed alcohol cessation, home health care social worker following and providing options for outpatient counseling. See further planning above Qualifiers: Syncope type: unspecified Qualified Code(s): R55 - Syncope and collapse (6) Alcohol dependence Current Visit: No Status: Chronic Assessment and plan: see above Qualifiers: Substance use status: in withdrawal Complication of substance-induced condition: uncomplicated Qualified Code(s): F10.230 - Alcohol dependence with withdrawal, uncomplicated (7) Weakness Current Visit: Yes Status: Acute Assessment and plan: see above (8) Malnutrition Current Visit: Yes Status: Acute Assessment and plan: Malnutrition 2/2 alcohol dependence Since admission patient's nutrition status is improving as his getting regular nutritional intake No need for dietary consult at this time, no need for meal supplementation at this time. Qualifiers: Malnutrition type: protein-calorie malnutrition Protein-calorie malnutrition severity: mild Qualified Code(s): E44.1 - Mild protein-calorie malnutrition - Time Spent With Patient Total time spent is greater than 50% in coordination of care (as documented) at patient's floor/unit and/or counseling patient: 25 - 35 minutes - Subjective Interval history: No acute changes overnight. Denies any withdrawal signs and symptoms. Patient [facility]. - Constitutional Vitals: Temp Pulse Resp BP Pulse Ox 98.3 F 59 14 186/99 94 05/07/18 07:22 05/07/18 07:22 05/07/18 07:22 05/07/18 07:22 05/07/18 07:22 General appearance: Present: A&O X 2 (Information not fully reliable, patient unclear attimes, can't remember) - Head Head exam: Present: atraumatic, normocephalic - Eye Eye exam: Present: PERRL, conjuntiva pink, sclera anicteric Pupils: Present: PERRL - Neck Neck exam general surgery: Present: supple, trachea midline. Absent: lymphadenopathy - Respiratory Respiratory exam: Present: CTAB. Absent: accessory muscle use, rales, rhonchi, wheezes - Cardiovascular Cardiovascular exam: Present: RRR, +S1, +S2. Absent: diastolic murmur, gallop, rubs, systolic murmur - GI/Abdominal GI/Abdominal exam: Present: normal bowel sounds, soft, no peritoneal signs. Absent: distended, tenderness - Extremities Exam Extremities exam: Present: warm, radial pulses palpable and symmetrical. Absent : calf tenderness, cyanotic, pedal edema - Neurological Exam Neurological exam: Present: CN II-XII intact, oriented X3, no focal deficits. Absent: pronater drift, facial droop, speech deficit - Skin Skin exam: Present: dry, intact Internal Medicine: Result - Labs CBC & Chem 7: 05/06/18 04:26 05/06/18 04:26 - ABG Interpretation ABG results: PT/INR, D-dimer PT 12.5 Seconds (9.4-12.1) H 05/01/18 10:03 D-Dimer 1135 ng/mLFEU (0-500) H 05/01/18 10:03 - VTE Documentation of Mechanical Device: Venous foot pump, device Consult Discharge Plan - Plan Referrals: Darlene Spears DO [Resident] - 05/10/18 2:00 pm
[2018-05-08] MEDS: Thiamine (B-1) 100 MG TABLET PO SCH (08:15)
[2018-05-08] MEDS: Pantoprazole 40 MG VIAL IVP SCH (08:15)
[2018-05-08] MEDS: Folic Acid 1 MG TABLET PO SCH (08:15)
[2018-05-08] MEDS: Nicotine 21 MG PATCH.TD24 TD SCH (08:15)
[2018-05-08] MEDS: amLODIPine 5 MG TABLET PO SCH (08:15)
[2018-05-08] MEDS: Vitamin B Complex/Vit C/Vit E 1 EACH TABLET PO SCH (08:17)
[2018-05-08] MEDS: Sucralfate 1 GM TABLET PO SCH ×2 (08:17→11:29)
[2018-05-08 10:58] VITALS: BP 144/93
--- NOTE | 2018-05-08 11:56 | Discharge Summary ---
Date of Encounter: 05/08/18 Time of Encounter: 10:10 - Discharge Diagnosis (1) Alcohol intoxication Priority: Primary Status: Acute Assessment and Plan: Resolved. Last drink 05/01/18. Qualifiers: Complication of substance-induced condition: with unspecified complication Qualified Code(s): F10.929 - Alcohol use, unspecified with intoxication, unspecified (2) Alcohol dependence Priority: Secondary Status: Chronic Assessment and Plan: Chronic. Pt is not having withdrawl symptoms and states that he is feeling well. He denies shaking, n/v/d, diaphoresis, chest pain, SOB, or visual/ auditory hallucinations. Pt has been given lists of resources for this and surrounding counties. Qualifiers: Substance use status: in withdrawal Complication of substance-induced condition: uncomplicated Qualified Code(s): F10.230 - Alcohol dependence with withdrawal, uncomplicated (3) Alcohol withdrawal Priority: Secondary Status: Acute Assessment and Plan: Resolved. Plan as above. Qualifiers: Complication of substance-induced condition: uncomplicated Qualified Code(s ): F10.230 - Alcohol dependence with withdrawal, uncomplicated (4) Syncope Priority: Secondary Status: Resolved Assessment and Plan: Likely secondary to alcohol intoxication. Pt has no neurological deficits and imaging has been negative. Stress is negative, and TTE is unremarkable, bilateral carotid dopplers with non-stenotic plaque. Pt is being admitted to [facility] for PT/OT. Qualifiers: Syncope type: unspecified Qualified Code(s): R55 - Syncope and collapse (5) Chest pain, atypical Priority: Secondary Status: Resolved Assessment and Plan: Resolved. (6) Elevated d-dimer Priority: Secondary Status: Acute Assessment and Plan: Unclear etiology, prior history of same with negative workup. CTA chest negative for PE. NO SOB, no extremity redness/swelling/tenderness. (7) Weakness Priority: Secondary Status: Acute Assessment and Plan: Pt to be discharged to [facility] for PT/OT. Likely cause of weakness is alcohol use and physical deconditioning. (8) Malnutrition Priority: Secondary Status: Acute Assessment and Plan: Secondary to alcohol dependence. Pt states that he is actually eating less than normal since he is lying around and doing nothing. No need for dietary consult, pt is improving. Qualifiers: Malnutrition type: protein-calorie malnutrition Protein-calorie malnutrition severity: mild Qualified Code(s): E44.1 - Mild protein-calorie malnutrition Hospital course: Mr. Vanfossan is a 62 year old male hypertension, alcohol and tobacco dependence. Patient was admitted for syncopal episodes, chest and abdominal pain. Patient reports alcohol cessation for several years, recent stressors caused him to start drinking heavily again for the last 2 weeks. Patient reports he was drinking at least a half a bottle of [employer] comfort daily. Due to his abdominal pain he was started on Protonix and Carafate. He also reported that he was having dizziness for multiple days prior to admission. Bilateral carotids were found to have nonstenotic plaque. Patient had negative stress test with gated EF of 75%. Patient had a chest CTA is negative for PE, hepatic steatosis was noted, patient had abdomen and pelvis CTA that was also unremarkable. Patient has improved and is exhibiting no symptoms of alcohol withdrawal. He is no longer utilizing the CIWA protocol. She was evaluated by physical therapy and occupational therapy due to his weakness which was most likely secondary to physical deconditioning as well as chronic alcohol use. He recommended SNF at discharge, patient will be admitted to [facility] for PT/OT. His vitals are stable and within normal limits, labs are also stable and within normal limits. Patient is stable and appropriate for discharge to [facility]. Discharge discussed with: patient Time spent discussing smoking cessation with patient: 3 to 10 minutes - Time Spent with Patient Total time spent providing and/or coordinating discharge services: Less than 30 minutes - Discharge Medications Home Medications: Folic Acid 1 mg PO DAILY tablet 05/08/18 [Rx] Metoprolol [Lopressor] 25 mg PO BID tablet 05/08/18 [Rx] Nicotine Patch [Nicoderm] 21 mg TD DAILY patch.td24 05/08/18 [Rx] Sucralfate [Carafate] 1 gm PO QIDAC tablet 05/08/18 [Rx] Thiamine (B-1) [Vitamin B-1] 100 mg PO DAILY tablet 05/08/18 [Rx] Vitamin B Complex/Vit C/Vit E [Stresstab] 1 each PO DAILY tablet 05/08/18 [Rx] amLODIPine [Norvasc] 5 mg PO DAILY tablet 05/08/18 [Rx] Allergies/Adverse Reactions: 3 Allergy/AdvReac Type Severity Reaction Status Date / Time No Known Allergies Allergy Verified 05/01/18 10:59 Date of admission: 05/06/18 11:52 Primary care physician: PCP NONE Discharging clinician: Teresa Garg Anticipated date of discharge: 05/08/18 - Constitutional Vitals: Temp Pulse Resp BP Pulse Ox 98.4 F 58 17 144/93 96 05/08/18 10:57 05/08/18 10:57 05/08/18 10:57 05/08/18 10:57 05/08/18 10:57 General appearance: Present: cooperative, A&O X 2 (Information not fully reliable, patient unclear attimes, can't remember), pleasant, no acute distress , answers questions appropriately - Head Head exam: Present: atraumatic, normal inspection, normocephalic - Eye Eye exam: Present: normal appearance, conjuntiva pink, sclera anicteric - Neck Neck exam general surgery: Present: supple, trachea midline. Absent: lymphadenopathy, tenderness - Respiratory Respiratory exam: Present: CTAB. Absent: accessory muscle use, rales, respiratory distress, rhonchi, wheezes - Cardiovascular Cardiovascular exam: Present: RRR, +S1, +S2. Absent: diastolic murmur, gallop, rubs, systolic murmur - GI/Abdominal GI/Abdominal exam: Present: normal bowel sounds, soft. Absent: distended, hepatomegaly, tenderness - Extremities Exam Extremities exam: Present: normal capillary refill, normal inspection, warm, radial pulses palpable and symmetrical. Absent: calf tenderness, cyanotic, pedal edema, tenderness - Neurological Exam Neurological exam: Present: alert, oriented X3, no focal deficits. Absent: altered, facial droop, speech deficit - Skin Skin exam: Present: dry, intact, normal color, warm. Absent: rash - Patient Status Disposition: Transfer Inpatient Rehab Fac Condition: Good Functional capacity at discharge: uses cane/walker Overall status at discharge: patient is progressing back to baseline - Discharge Instructions Follow Up With: Darlene Spears DO [Resident] - 05/10/18 2:00 pm - Diet and Activity Activity: as per physical therapy Diet: advance to your usual diet - VTE Documentation of Mechanical Device: Venous foot pump, device
--- NOTE | 2018-05-08 12:15 | Physician Discharge Referral ---
ExtendedCare Referral Info Provider in Charge after Transfer: PCP Institutional Level of Care: Skilled - Diagnosis (1) Alcohol intoxication Priority: Primary Status: Acute (2) Alcohol dependence Priority: Secondary Status: Chronic (3) Alcohol withdrawal Priority: Secondary Status: Acute (4) Syncope Priority: Secondary Status: Resolved (5) Chest pain, atypical Priority: Secondary Status: Resolved (6) Elevated d-dimer Priority: Secondary Status: Acute (7) Weakness Priority: Secondary Status: Acute (8) Malnutrition Priority: Secondary Status: Acute Prognosis: Good Aware of Diagnosis: Patient - Transfer Medications Home Medications: Folic Acid 1 mg PO DAILY tablet 05/08/18 [Rx] Metoprolol [Lopressor] 25 mg PO BID tablet 05/08/18 [Rx] Nicotine Patch [Nicoderm] 21 mg TD DAILY patch.td24 05/08/18 [Rx] Sucralfate [Carafate] 1 gm PO QIDAC tablet 05/08/18 [Rx] Thiamine (B-1) [Vitamin B-1] 100 mg PO DAILY tablet 05/08/18 [Rx] Vitamin B Complex/Vit C/Vit E [Stresstab] 1 each PO DAILY tablet 05/08/18 [Rx] amLODIPine [Norvasc] 5 mg PO DAILY tablet 05/08/18 [Rx] Allergies/Adverse Reactions: 3 Allergy/AdvReac Type Severity Reaction Status Date / Time No Known Allergies Allergy Verified 05/01/18 10:59 - Respiratory Orders Smoking Cessation: Smoking cessation has been advised. For more information, call the [place] Tobacco Quit Line at 2-696-HAKU-NOW. - Lab Orders Lab Orders: CBC, U/A - Ancillary Orders May go on LUIS ANTONIO w/family/respon libertarian w/meds at nurse discretion PRN - Advance Directives Code Status: Full Code - Mobility Orders Ambulate - Rehabiliation Orders Rehab Potential: Good Rehab Orders: ROM Exercises, Evaluation for Physical Therapy, Evaluation for Occupational Therapy - Treatments Skin tear care topically daily PRN per policy, May check for fecal impaction rectally daily PRN, Fleet enema rectally every other day PRN cleansing purposes - Diet Orders Regular CERTIFICATION: I certify that the transfer of the above named patient to an Extended Care Facility is necessary for the continuing treatment of the diagnosis listed. The above information is true and accurate reflection of patient's current condition. Confidential - Redisclosure prohibited without a patient's written consent.
== END 2018-05-08 13:39 | DRG 313 ==
LOC: 3BNU 09:51 → EMEROO 09:51 → 3BNU 15:01
PROVIDERS: ADMIT Internal Medicine; ATTEND Internal Medicine

== ENCOUNTER 2019-09-01 14:52 | Observation (INO) ==
[2019-09-01] MEDS ORDERED: Thiamine (B-1) 100 MG, Folic Acid 1 MG in 0.9 % Sodium Chloride 50 ML IVPB STA (15:01)
[2019-09-01] MEDS ORDERED: Ondansetron 4 MG/2 ML VIAL IVP ONE (15:01)
[2019-09-01 16:00] LABS: Basophils # 0.1 K/mcL (0.0-0.2); Basophils % 0.6 %; Eosinophils % 0.1 %; Hematocrit 45.4 % (37.5-50.1); Hemoglobin 16.5 g/dL (12.9-16.9); Immature Granulocytes % 0.8 % (0-4); Lymphocytes # 1.5 K/mcL (0.6-4.6); Lymphocytes % 15.4 %; Mean Corpuscular HGB Conc 36.3 g/dL (31.6-35.5); Mean Corpuscular Hemoglobin 34.4 pg (28.0-33.3); Mean Corpuscular Volume 94.8 fL (83.0-100.0); Mean Platelet Volume 8.8 fL (9.4-12.4); Monocytes # 0.6 K/mcL (0.0-1.3); Monocytes % 5.9 %; Neutrophils # 7.6 K/mcL (1.6-8.9); Platelet Count 197 K/mcL (140-400); Red Blood Count 4.79 M/mcL (4.19-5.50); Red Cell Distribution Width 13.4 % (11.5-14.5); Segmented Neutrophils % 77.2 %; White Blood Count 9.9 K/mcL (4.3-11.1)
[2019-09-01 16:06] LABS: Prothrombin Time 11.8 Seconds (9.4-12.1)
[2019-09-01 16:08] LABS: Activated Partial Thrombo Time 29.2 Seconds (26.0-36.0)
[2019-09-01 16:19] LABS: Albumin 3.7 g/dL (3.5-5.7); Albumin/Globulin Ratio 1.2 (1.1-2.2); Bilirubin,Direct 0.1 mg/dL (0.0-0.2); Bilirubin,Indirect 0.3 mg/dL (0.0-1.0); Bilirubin,Total 0.4 mg/dL (0.3-1.0); Globulin 3.2 g/dL (2.4-3.5); Total Protein 6.9 g/dL (6.4-8.9)
[2019-09-01] MEDS ORDERED: Ondansetron 4 MG/2 ML VIAL IVP PRN (16:19)
[2019-09-01] MEDS ORDERED: Morphine Sulfate 2 MG/ML SYRINGE IVP ONE (16:30)
[2019-09-01 16:36] LABS: BUN/Creatinine Ratio 16 (6-26); Blood Urea Nitrogen 9 mg/dL (8-23); Calcium 8.7 mg/dL (8.6-10.3); Carbon Dioxide 21 mEq/L (23-29); Chloride 100 mEq/L (98-107); Glucose 119 mg/dL (70-105); Osmolality,Calculated 286 (280-300); Potassium 3.4 mEq/L (3.5-5.1); Sodium 138 mEq/L (136-145); Troponin I 0.04 ng/mL (< 0.04); eGFR For African Americans > 60 (> 60); eGFR For Non-African Americans > 60 (> 60)
[2019-09-01] MEDS ORDERED: Aspirin 325 MG TABLET PO ONE (16:36)
[2019-09-01] MEDS ORDERED: *HR* Promethazine 25 MG/ML VIAL IVP STA (17:12)
[2019-09-01] MEDS ORDERED: methylPREDNISolone 125 MG/2 ML VIAL IVP ONE (17:15)
[2019-09-01] MEDS: Ipratropium/Albuterol Neb 3 ML IH ONE ×2 (17:22→17:35)
[2019-09-01 17:27] LABS: Ethanol 201 mg/dL (Less than 10)
[2019-09-01] MEDS ORDERED: *HR* Labetalol 20 MG/4 ML SYRINGE IVP ONE (17:42)
[2019-09-01] MEDS ORDERED: Acetaminophen 325 MG TABLET PO PRN (18:19)
[2019-09-01] MEDS ORDERED: MOM Conc 10 ML UD.LIQ PO PRN (18:19)
[2019-09-01] MEDS ORDERED: *HR* LORazepam 2 MG/ML VIAL IVP PRN ×2 (18:19)
[2019-09-01] MEDS ORDERED: Albuterol 2.5 MG/3 ML NEBULIZER IH PRN (18:19)
[2019-09-01] MEDS ORDERED: Naloxone 0.4 MG/ML INJ IVP PRN (18:19)
[2019-09-01] MEDS ORDERED: Potassium Chloride 40 MEQ, Lidocaine 1% 2 ML in D5% in Water 500 ML IVPB ONE (18:27)
[2019-09-01] MEDS: Ipratropium/Albuterol Neb 3 ML IH SCH ×2 (20:04→22:15)
[2019-09-01] MEDS: Ondansetron 4 MG/2 ML VIAL IVP PRN (21:03)
[2019-09-01] MEDS: Nicotine 21 MG PATCH.TD24 TD SCH (21:11)
[2019-09-01] MEDS: amLODIPine 5 MG TABLET PO SCH (21:12)
[2019-09-01] MEDS: Azithromycin 500 MG in 0.9 % Sodium Chloride 250 ML IVPB SCH (21:12)
[2019-09-01] MEDS: *HR* LORazepam 2 MG/ML VIAL IVP PRN (21:41)
[2019-09-01] MEDS: MethylPREDNISolone 40 MG/ML VIAL IVP SCH (23:33)
[2019-09-02 00:55] LABS: Hematocrit 46.8 % (37.5-50.1); Hemoglobin 16.1 g/dL (12.9-16.9); Mean Corpuscular HGB Conc 34.4 g/dL (31.6-35.5); Mean Corpuscular Hemoglobin 34.1 pg (28.0-33.3); Mean Corpuscular Volume 99.2 fL (83.0-100.0); Mean Platelet Volume 9.6 fL (9.4-12.4); Platelet Count 197 K/mcL (140-400); Red Blood Count 4.72 M/mcL (4.19-5.50); Red Cell Distribution Width 13.6 % (11.5-14.5); White Blood Count 14.5 K/mcL (4.3-11.1)
[2019-09-02 01:19] LABS: BUN/Creatinine Ratio 20 (6-26); Blood Urea Nitrogen 14 mg/dL (8-23); Carbon Dioxide 20 mEq/L (23-29); Chloride 101 mEq/L (98-107); Glucose 206 mg/dL (70-105); Magnesium 1.4 mg/dL (1.6-2.6); Osmolality,Calculated 286 (280-300); Phosphorous 2.5 mg/dL (2.7-4.5); Potassium 4.6 mEq/L (3.5-5.1); Sodium 135 mEq/L (136-145); eGFR For African Americans > 60 (> 60); eGFR For Non-African Americans > 60 (> 60)
[2019-09-02] MEDS: *HR* LORazepam 2 MG/ML VIAL IVP PRN (03:05)
[2019-09-02] MEDS: Ondansetron 4 MG/2 ML VIAL IVP PRN ×3 (03:05→16:20)
[2019-09-02] MEDS: Ipratropium/Albuterol Neb 3 ML IH SCH ×4 (04:27→22:18)
[2019-09-02] MEDS ORDERED: NIFEdipine 10 MG CAPSULE PO ONE (04:43)
[2019-09-02] MEDS: Mag Hydrox/Al Hydrox/Simeth 30 ML UDC PO PRN ×2 (05:11→19:05)
[2019-09-02] MEDS ORDERED: 0.9 % Sodium Chloride 1,000 ML IVC ONE ×3 (05:15→16:57)
[2019-09-02] MEDS: *HR* Promethazine 25 MG/ML VIAL IVPB PRN ×2 (05:27→12:22)
[2019-09-02] MEDS: 0.9 % Sodium Chloride 1,000 ML IVC SCH ×2 (06:58→12:31)
[2019-09-02] MEDS: amLODIPine 5 MG TABLET PO SCH (07:40)
[2019-09-02] MEDS: Thiamine (B-1) 100 MG TABLET PO SCH (07:40)
[2019-09-02] MEDS: Aspirin 81 MG TAB.CHEW PO SCH (07:41)
[2019-09-02] MEDS: MethylPREDNISolone 40 MG/ML VIAL IVP SCH ×2 (07:41→16:20)
[2019-09-02] MEDS: Nicotine 21 MG PATCH.TD24 TD SCH (07:41)
[2019-09-02] MEDS: Folic Acid 1 MG TABLET PO SCH (07:41)
[2019-09-02] MEDS ORDERED: predniSONE 20 MG TABLET PO SCH (09:00)
[2019-09-02] MEDS: Ampicillin/Sulbactam 3,000 MG in 0.9 % Sodium Chloride Mini Bag 100 ML IVPB SCH ×2 (12:22→18:33)
[2019-09-02] MEDS: Azithromycin 500 MG in 0.9 % Sodium Chloride 250 ML IVPB SCH (19:03)
[2019-09-02 19:40] LABS: Bilirubin,Urine Negative (Negative); Blood,Urine Large (Negative); Clarity,Urine Cloudy (Clear); Color,Urine Yellow (Yellow); Glucose,Urine (UA) Normal (Normal); Ketones,Urine Negative (Negative); Leukocyte Esterase,Urine Negative (Negative); Nitrite,Urine Negative (Negative); Protein,Urine 30 mg/dL (Neg-Trace); Specific Gravity,Urine 1.016 (1.010-1.025); Urobilinogen,Urine Normal (Normal)
[2019-09-02 19:45] LABS: Bacteria,Urine None Seen per hpf (None-Few); Hyaline Casts,Urine None Seen per lpf (None-Few); RBC,Urine TNTC per hpf (0-3); Squamous Epithelial Cell,Urine Moderate per lpf (None-Few); WBC,Urine 0-3 per hpf (0-3)
[2019-09-02] MEDS ORDERED: cloNIDine HCl 0.1 MG TABLET PO SCH (21:00)
[2019-09-02] MEDS: cloNIDine HCl 0.1 MG TABLET PO SCH (21:10)
[2019-09-02] MEDS: *HR* Heparin 5,000 UNIT/ML VIAL SQ SCH (21:11)
[2019-09-03] MEDS: MethylPREDNISolone 40 MG/ML VIAL IVP SCH ×2 (00:02→09:05)
[2019-09-03] MEDS: Ampicillin/Sulbactam 3,000 MG in 0.9 % Sodium Chloride Mini Bag 100 ML IVPB SCH ×2 (00:02→05:19)
[2019-09-03] MEDS: 0.9 % Sodium Chloride 1,000 ML IVC SCH ×3 (00:03→21:19)
[2019-09-03] MEDS ORDERED: Ipratropium/Albuterol Neb 3 ML IH PRN (00:27)
[2019-09-03 05:14] LABS: Basophils % 0.1 %; Hematocrit 41.3 % (37.5-50.1); Hemoglobin 14.6 g/dL (12.9-16.9); Immature Granulocytes % 0.8 % (0-4); Lymphocytes # 0.8 K/mcL (0.6-4.6); Lymphocytes % 3.7 %; Mean Corpuscular HGB Conc 35.4 g/dL (31.6-35.5); Mean Platelet Volume 9.6 fL (9.4-12.4); Monocytes # 0.4 K/mcL (0.0-1.3); Monocytes % 1.7 %; Platelet Count 160 K/mcL (140-400); Red Blood Count 4.17 M/mcL (4.19-5.50); Red Cell Distribution Width 14.5 % (11.5-14.5); Segmented Neutrophils % 93.7 %; White Blood Count 21.3 K/mcL (4.3-11.1)
[2019-09-03] MEDS: *HR* Heparin 5,000 UNIT/ML VIAL SQ SCH ×3 (05:19→21:17)
[2019-09-03] MEDS: Ondansetron 4 MG/2 ML VIAL IVP PRN (05:24)
[2019-09-03 05:35] LABS: BUN/Creatinine Ratio 31 (6-26); Blood Urea Nitrogen 18 mg/dL (8-23); Calcium 8.3 mg/dL (8.6-10.3); Carbon Dioxide 22 mEq/L (23-29); Chloride 107 mEq/L (98-107); Glucose 155 mg/dL (70-105); Osmolality,Calculated 291 (280-300); Potassium 4.2 mEq/L (3.5-5.1); Sodium 138 mEq/L (136-145); eGFR For African Americans > 60 (> 60); eGFR For Non-African Americans > 60 (> 60)
[2019-09-03] MEDS ORDERED: Azithromycin 500 MG in 0.9 % Sodium Chloride 250 ML IVPB SCH (09:00)
[2019-09-03] MEDS: Folic Acid 1 MG TABLET PO SCH (09:05)
[2019-09-03] MEDS: Thiamine (B-1) 100 MG TABLET PO SCH (09:05)
[2019-09-03] MEDS: Nicotine 21 MG PATCH.TD24 TD SCH (09:05)
[2019-09-03] MEDS: Aspirin 81 MG TAB.CHEW PO SCH (09:06)
[2019-09-03] MEDS: amLODIPine 5 MG TABLET PO SCH (09:06)
[2019-09-03] MEDS: cloNIDine HCl 0.1 MG TABLET PO SCH (09:06)
[2019-09-03 11:52] LABS: Magnesium 2.1 mg/dL (1.6-2.6)
[2019-09-03] MEDS ORDERED: Ergocalciferol (VIT D2) 50,000 UNIT (1.25MG) CAP PO SCH (19:00)
[2019-09-04] MEDS: *HR* Heparin 5,000 UNIT/ML VIAL SQ SCH ×2 (05:56→12:59)
[2019-09-04] MEDS: Ondansetron 4 MG/2 ML VIAL IVP PRN (05:56)
[2019-09-04] MEDS: 0.9 % Sodium Chloride 1,000 ML IVC SCH (05:56)
[2019-09-04 06:47] LABS: Basophils % 0.1 %; Hematocrit 41.9 % (37.5-50.1); Immature Granulocytes % 0.6 % (0-4); Lymphocytes # 3.3 K/mcL (0.6-4.6); Lymphocytes % 17.4 %; Mean Corpuscular HGB Conc 33.4 g/dL (31.6-35.5); Mean Corpuscular Hemoglobin 34.7 pg (28.0-33.3); Mean Platelet Volume 10.8 fL (9.4-12.4); Monocytes # 0.7 K/mcL (0.0-1.3); Monocytes % 3.9 %; Neutrophils # 14.9 K/mcL (1.6-8.9); Platelet Count 121 K/mcL (140-400); Red Blood Count 4.03 M/mcL (4.19-5.50); Red Cell Distribution Width 14.2 % (11.5-14.5); White Blood Count 19.1 K/mcL (4.3-11.1)
[2019-09-04 07:10] LABS: BUN/Creatinine Ratio 35 (6-26); Blood Urea Nitrogen 21 mg/dL (8-23); Calcium 8.2 mg/dL (8.6-10.3); Carbon Dioxide 23 mEq/L (23-29); Chloride 108 mEq/L (98-107); Glucose 111 mg/dL (70-105); Osmolality,Calculated 290 (280-300); Sodium 138 mEq/L (136-145); eGFR For African Americans > 60 (> 60); eGFR For Non-African Americans > 60 (> 60)
[2019-09-04] MEDS ORDERED: predniSONE 20 MG TABLET PO SCH (09:00)
[2019-09-04] MEDS: Nicotine 21 MG PATCH.TD24 TD SCH (10:33)
[2019-09-04] MEDS: Aspirin 81 MG TAB.CHEW PO SCH (10:33)
[2019-09-04] MEDS: Thiamine (B-1) 100 MG TABLET PO SCH (10:33)
[2019-09-04] MEDS: amLODIPine 5 MG TABLET PO SCH (10:33)
[2019-09-04] MEDS: Folic Acid 1 MG TABLET PO SCH (10:33)
[2019-09-04 14:54] VITALS: BP 157/84
== END 2019-09-04 18:08 | disposition home or self-care (01) ==
LOC: EMEROOARM 14:52 → 3BNU 14:52 → SUATTDRO 18:45 → 3BNU 20:13 → 2ANU 09-02 10:44
PROVIDERS: ADMIT Internal Medicine; ATTEND Internal Medicine

== ENCOUNTER 2020-01-05 18:30 | Observation (INO) ==
[2020-01-05] MEDS ORDERED: Tdap (Boostrix) Vaccine 0.5 ML SYRINGE IM ONE (18:54)
[2020-01-05 19:19] LABS: Hemoglobin 16.2 g/dL (12.9-16.9); Immature Granulocytes % 0.6 % (0-4); Mean Corpuscular Volume 94.1 fL (83.0-100.0)
[2020-01-05] MEDS ORDERED: Ondansetron 4 MG/2 ML VIAL IVP ONE ×2 (19:19→19:20)
[2020-01-05] MEDS ORDERED: *HR* LORazepam 2 MG/ML VIAL IVP ONE (19:20)
[2020-01-05 19:21] LABS: Basophils % 0.5 %; Hematocrit 44.7 % (37.5-50.1); Immature Platelets 3.5 % (1.1-6.1); Lymphocytes # 1.8 K/mcL (0.6-4.6); Lymphocytes % 27.7 %; Mean Corpuscular HGB Conc 36.2 g/dL (31.6-35.5); Mean Corpuscular Hemoglobin 34.1 pg (28.0-33.3); Mean Platelet Volume 8.8 fL (9.4-12.4); Monocytes # 0.6 K/mcL (0.0-1.3); Monocytes % 8.5 %; Neutrophils # 4.1 K/mcL (1.6-8.9); Platelet Count 102 K/mcL (140-400); Red Blood Count 4.75 M/mcL (4.19-5.50); Segmented Neutrophils % 62.7 %; White Blood Count 6.5 K/mcL (4.3-11.1)
[2020-01-05 19:29] LABS: Prothrombin Time 11.6 Seconds (9.4-12.1)
[2020-01-05 19:39] LABS: Alanine Aminotransferase 30 Units/L (7-52); Albumin 3.8 g/dL (3.5-5.7); Albumin/Globulin Ratio 1.3 (1.1-2.2); Alkaline Phosphatase 131 Units/L (34-104); Aspartate Amino Transferase 43 Units/L (13-39); BUN/Creatinine Ratio 23 (6-26); Bilirubin,Direct 0.1 mg/dL (0.0-0.2); Bilirubin,Indirect 0.4 mg/dL (0.0-1.0); Bilirubin,Total 0.5 mg/dL (0.3-1.0); Blood Urea Nitrogen 12 mg/dL (8-23); Calcium 8.7 mg/dL (8.6-10.3); Carbon Dioxide 26 mEq/L (23-29); Chloride 92 mEq/L (98-107); Glucose 148 mg/dL (70-105); Osmolality,Calculated 279 (280-300); Sodium 133 mEq/L (136-145); Total Protein 6.8 g/dL (6.4-8.9); eGFR For African Americans > 60 (> 60); eGFR For Non-African Americans > 60 (> 60)
[2020-01-05 20:56] LABS: Ethanol 300 mg/dL (Less than 10)
[2020-01-05 21:06] LABS: Bilirubin,Urine Negative (Negative); Blood,Urine Large (Negative); Clarity,Urine Cloudy (Clear); Color,Urine Dark Yellow (Yellow); Glucose,Urine (UA) Normal (Normal); Ketones,Urine Trace mg/dL (Negative); Leukocyte Esterase,Urine Small (Negative); Nitrite,Urine Positive (Negative); Protein,Urine >=300 mg/dL (Neg-Trace); Specific Gravity,Urine 1.024 (1.010-1.025); Urobilinogen,Urine Normal (Normal)
[2020-01-05] MEDS ORDERED: 0.9 % Sodium Chloride 1,000 ML IVC ONE (21:06)
[2020-01-05] MEDS ORDERED: Metoclopramide 10 MG/2 ML VIAL IVP ONE (21:06)
[2020-01-05 21:09] LABS: Bacteria,Urine None Seen per hpf (None-Few); Hyaline Casts,Urine Moderate per lpf (None-Few); RBC,Urine TNTC per hpf (0-3); Squamous Epithelial Cell,Urine Many per lpf (None-Few); WBC,Urine 30-50 per hpf (0-3)
[2020-01-05 21:14] LABS: Amphetamine Screen,Urine Negative ng/mL (Cutoff=1000); Barbiturate Screen,Urine Negative ng/mL (Cutoff=200); Benzodiazepines Screen,Urine Negative ng/mL (Cutoff=200); Cannabinoid Screen,Urine Negative ng/mL (Cutoff = 50); Cocaine Screen,Urine Negative ng/mL (Cutoff= 300); Opiate Screen,Urine Negative ng/mL (Cutoff=300); Phencyclidine Screen,Urine Negative ng/mL (Cutoff=25)
[2020-01-05] MEDS ORDERED: Potassium Chloride 40 MEQ, Lidocaine 1% 2 ML in 0.9 % Sodium Chloride 500 ML IVPB ONE (21:17)
[2020-01-05] MEDS ORDERED: Naloxone 0.4 MG/ML INJ IVP PRN (23:10)
[2020-01-05 23:43] LABS: Magnesium 1.7 mg/dL (1.6-2.6); Phosphorous 3.1 mg/dL (2.7-4.5)
[2020-01-06] MEDS ORDERED: Ondansetron 4 MG/2 ML VIAL IVP PRN (00:15)
[2020-01-06] MEDS ORDERED: *HR* LORazepam 2 MG/ML VIAL IVP PRN ×3 (00:35)
[2020-01-06] MEDS: *HR* Promethazine 25 MG/ML VIAL IVP PRN ×3 (01:10→14:17)
[2020-01-06 02:22] LABS: INR 1.1; Prothrombin Time 12.6 Seconds (9.4-12.1)
[2020-01-06] MEDS: 0.9 % Sodium Chloride w KCl 40 MEQ/1,000 ML MLS IVC SCH ×3 (02:33→17:24)
[2020-01-06 02:38] LABS: Amylase 58 Units/L (29-103); Lipase 62 Units/L (11-82)
[2020-01-06 02:39] LABS: Hematocrit 41.8 % (37.5-50.1); Hemoglobin 15.3 g/dL (12.9-16.9); Mean Corpuscular HGB Conc 36.6 g/dL (31.6-35.5); Mean Platelet Volume 9.6 fL (9.4-12.4)
[2020-01-06 02:41] LABS: Basophils % 0.3 %; Eosinophils % 0.1 %; Immature Granulocytes % 0.4 % (0-4); Immature Platelets 3.3 % (1.1-6.1); Lymphocytes # 1.8 K/mcL (0.6-4.6); Lymphocytes % 13.3 %; Mean Corpuscular Hemoglobin 34.8 pg (28.0-33.3); Monocytes # 0.8 K/mcL (0.0-1.3); Monocytes % 5.6 %; Red Cell Distribution Width 12.2 % (11.5-14.5); Segmented Neutrophils % 80.3 %; White Blood Count 13.4 K/mcL (4.3-11.1)
[2020-01-06 02:42] LABS: Neutrophils # 10.8 K/mcL (1.6-8.9); Platelet Count 90 K/mcL (140-400)
[2020-01-06 02:56] LABS: Alanine Aminotransferase 31 Units/L (7-52); Albumin 3.6 g/dL (3.5-5.7); Albumin/Globulin Ratio 1.2 (1.1-2.2); Alkaline Phosphatase 121 Units/L (34-104); Aspartate Amino Transferase 48 Units/L (13-39); BUN/Creatinine Ratio 23 (6-26); Bilirubin,Total 0.6 mg/dL (0.3-1.0); Blood Urea Nitrogen 14 mg/dL (8-23); Calcium 8.4 mg/dL (8.6-10.3); Carbon Dioxide 22 mEq/L (23-29); Chloride 99 mEq/L (98-107); Globulin 2.9 g/dL (2.4-3.5); Glucose 112 mg/dL (70-105); Osmolality,Calculated 283 (280-300); Potassium 3.8 mEq/L (3.5-5.1); Sodium 136 mEq/L (136-145); Total Protein 6.5 g/dL (6.4-8.9); eGFR For African Americans > 60 (> 60); eGFR For Non-African Americans > 60 (> 60)
[2020-01-06] MEDS ORDERED: Aspirin 325 MG TABLET PO ONE (03:38)
[2020-01-06 03:39] LABS: Hepatitis B Surface Antigen Nonreactive (Nonreactive)
[2020-01-06 04:08] LABS: Hepatitis B Core IgM Nonreactive (Nonreactive)
[2020-01-06] MEDS: *HR* Labetalol 20 MG/4 ML SYRINGE IVP PRN (04:08)
[2020-01-06 04:10] LABS: Hepatitis A Antibody IgM Nonreactive (Nonreactive); Hepatitis C Virus Antibody Nonreactive (Nonreactive)
[2020-01-06] MEDS: *HR* Heparin 5,000 UNIT/ML VIAL SQ SCH ×2 (05:22→17:24)
[2020-01-06 08:28] LABS: Estimated Average Glucose 137 mg/dl
[2020-01-06] MEDS ORDERED: lisinopriL 10 MG TABLET PO SCH (09:00)
[2020-01-06] MEDS: Vitamin B Complex/Vit C/Vit E 1 EACH TABLET PO SCH (09:11)
[2020-01-06] MEDS: amLODIPine 5 MG TABLET PO SCH (09:11)
[2020-01-06] MEDS: Thiamine (B-1) 100 MG TABLET PO SCH (09:11)
[2020-01-06] MEDS: Folic Acid 1 MG TABLET PO SCH (09:11)
[2020-01-06] MEDS: cefTRIAXone 1,000 MG in Water for inj. (sterile) 10 ML IVP SCH (14:04)
[2020-01-07] MEDS: 0.9 % Sodium Chloride w KCl 40 MEQ/1,000 ML MLS IVC SCH ×2 (01:49→08:19)
[2020-01-07] MEDS: *HR* Heparin 5,000 UNIT/ML VIAL SQ SCH ×2 (05:05→17:09)
[2020-01-07 05:30] LABS: Basophils % 0.3 %; Immature Granulocytes % 0.6 % (0-4); Mean Corpuscular Volume 99.7 fL (83.0-100.0); Red Cell Distribution Width 12.9 % (11.5-14.5)
[2020-01-07 05:32] LABS: Eosinophils # 0.1 K/mcL (0.0-0.6); Eosinophils % 0.9 %; Hematocrit 38.9 % (37.5-50.1); Hemoglobin 13.2 g/dL (12.9-16.9); Immature Platelets 4.8 % (1.1-6.1); Lymphocytes # 2.7 K/mcL (0.6-4.6); Lymphocytes % 26.2 %; Mean Corpuscular HGB Conc 33.9 g/dL (31.6-35.5); Mean Corpuscular Hemoglobin 33.8 pg (28.0-33.3); Mean Platelet Volume 10.2 fL (9.4-12.4); Monocytes # 0.7 K/mcL (0.0-1.3); Monocytes % 6.4 %; Neutrophils # 6.8 K/mcL (1.6-8.9); Segmented Neutrophils % 65.6 %; White Blood Count 10.3 K/mcL (4.3-11.1)
[2020-01-07 05:43] LABS: Alanine Aminotransferase 27 Units/L (7-52); Albumin/Globulin Ratio 1.2 (1.1-2.2); Alkaline Phosphatase 116 Units/L (34-104); Aspartate Amino Transferase 41 Units/L (13-39); BUN/Creatinine Ratio 31 (6-26); Blood Urea Nitrogen 16 mg/dL (8-23); Calcium 8.4 mg/dL (8.6-10.3); Carbon Dioxide 21 mEq/L (23-29); Chloride 109 mEq/L (98-107); Globulin 2.5 g/dL (2.4-3.5); Glucose 97 mg/dL (70-105); Osmolality,Calculated 283 (280-300); Platelet Count 65 K/mcL (140-400); Potassium 4.2 mEq/L (3.5-5.1); Sodium 136 mEq/L (136-145); Total Protein 5.5 g/dL (6.4-8.9); eGFR For African Americans > 60 (> 60); eGFR For Non-African Americans > 60 (> 60)
[2020-01-07] MEDS: *HR* Labetalol 20 MG/4 ML SYRINGE IVP PRN (06:58)
[2020-01-07] MEDS ORDERED: cloNIDine HCL 0.1 MG TABLET PO PRN ×2 (08:09→14:00)
[2020-01-07] MEDS: Thiamine (B-1) 100 MG TABLET PO SCH (08:20)
[2020-01-07] MEDS: amLODIPine 5 MG TABLET PO SCH (08:20)
[2020-01-07] MEDS: Folic Acid 1 MG TABLET PO SCH (08:20)
[2020-01-07] MEDS: Vitamin B Complex/Vit C/Vit E 1 EACH TABLET PO SCH (08:20)
[2020-01-07] MEDS: lisinopriL 20 MG TABLET PO SCH (08:20)
[2020-01-07] MEDS: cefTRIAXone 1,000 MG in Water for inj. (sterile) 10 ML IVP SCH (13:38)
[2020-01-07] MEDS ORDERED: *HR* Labetalol 20 MG/4 ML SYRINGE IVP PRN (13:58)
[2020-01-07] MEDS: 0.9 % Sodium Chloride 1,000 ML IVC SCH (15:16)
[2020-01-07] MEDS: Nicotine 21 MG PATCH.TD24 TD SCH (21:46)
[2020-01-07] MEDS: *HR* Promethazine 25 MG/ML VIAL IVP PRN (21:47)
[2020-01-08 01:52] LABS: Basophils % 0.5 %; Immature Granulocytes % 0.7 % (0-4); Mean Corpuscular HGB Conc 33.3 g/dL (31.6-35.5)
[2020-01-08 01:53] LABS: Eosinophils # 0.1 K/mcL (0.0-0.6); Eosinophils % 1.7 %; Hematocrit 37.2 % (37.5-50.1); Hemoglobin 12.4 g/dL (12.9-16.9); Immature Platelets 4.4 % (1.1-6.1); Lymphocytes # 3.1 K/mcL (0.6-4.6); Lymphocytes % 36.9 %; Mean Corpuscular Hemoglobin 33.7 pg (28.0-33.3); Mean Corpuscular Volume 101.1 fL (83.0-100.0); Monocytes # 0.7 K/mcL (0.0-1.3); Monocytes % 7.9 %; Red Blood Count 3.68 M/mcL (4.19-5.50); Red Cell Distribution Width 12.8 % (11.5-14.5); Segmented Neutrophils % 52.3 %; White Blood Count 8.3 K/mcL (4.3-11.1)
[2020-01-08 02:00] LABS: Neutrophils # 4.3 K/mcL (1.6-8.9); Platelet Count 67 K/mcL (140-400)
[2020-01-08 02:10] LABS: Alanine Aminotransferase 30 Units/L (7-52); Albumin/Globulin Ratio 1.2 (1.1-2.2); Alkaline Phosphatase 111 Units/L (34-104); Aspartate Amino Transferase 40 Units/L (13-39); BUN/Creatinine Ratio 25 (6-26); Bilirubin,Total 0.8 mg/dL (0.3-1.0); Blood Urea Nitrogen 13 mg/dL (8-23); Calcium 8.5 mg/dL (8.6-10.3); Carbon Dioxide 23 mEq/L (23-29); Chloride 108 mEq/L (98-107); Globulin 2.6 g/dL (2.4-3.5); Glucose 87 mg/dL (70-105); Magnesium 1.7 mg/dL (1.6-2.6); Osmolality,Calculated 279 (280-300); Phosphorous 3.6 mg/dL (2.7-4.5); Sodium 135 mEq/L (136-145); Total Protein 5.6 g/dL (6.4-8.9); eGFR For African Americans > 60 (> 60); eGFR For Non-African Americans > 60 (> 60)
[2020-01-08] MEDS: 0.9 % Sodium Chloride 1,000 ML IVC SCH ×2 (02:57→09:01)
[2020-01-08] MEDS: *HR* Promethazine 25 MG/ML VIAL IVP PRN (03:08)
[2020-01-08] MEDS: *HR* Heparin 5,000 UNIT/ML VIAL SQ SCH (06:06)
[2020-01-08 06:52] VITALS: BP 176/98
[2020-01-08] MEDS ORDERED: Nicotine 21 MG PATCH.TD24 TD SCH (09:00)
[2020-01-08] MEDS: lisinopriL 20 MG TABLET PO SCH (09:02)
[2020-01-08] MEDS: amLODIPine 5 MG TABLET PO SCH (09:02)
[2020-01-08] MEDS: Folic Acid 1 MG TABLET PO SCH (09:02)
[2020-01-08] MEDS: Vitamin B Complex/Vit C/Vit E 1 EACH TABLET PO SCH (09:02)
[2020-01-08] MEDS: Thiamine (B-1) 100 MG TABLET PO SCH (09:02)
[2020-01-08] MEDS: Nicotine 21 MG PATCH.TD24 TD SCH (09:03)
== END 2020-01-08 10:44 | disposition home or self-care (01) ==
LOC: 3ANU 18:30 → EMEROOARM 18:30 → SUATTDRO 21:19 → 3ANU 21:47
PROVIDERS: ADMIT Internal Medicine; ATTEND Internal Medicine

== ENCOUNTER 2020-05-01 02:03 | Inpatient (IN) ==
[2020-05-01 03:26] LABS: Basophils % 0.1 %; Hematocrit 44.2 % (37.5-50.1); Hemoglobin 16.1 g/dL (12.9-16.9); Immature Granulocytes % 0.9 % (0-4); Lymphocytes # 1.5 K/mcL (0.6-4.6); Lymphocytes % 8.2 %; Mean Corpuscular HGB Conc 36.4 g/dL (31.6-35.5); Mean Corpuscular Hemoglobin 34.3 pg (28.0-33.3); Mean Platelet Volume 9.7 fL (9.4-12.4); Monocytes % 5.3 %; Neutrophils # 15.7 K/mcL (1.6-8.9); Platelet Count 103 K/mcL (140-400); Red Cell Distribution Width 11.9 % (11.5-14.5); Segmented Neutrophils % 85.5 %; White Blood Count 18.4 K/mcL (4.3-11.1)
[2020-05-01 03:31] LABS: INR 1.1; Prothrombin Time 12.5 Seconds (9.4-12.1)
[2020-05-01 04:07] LABS: Albumin/Globulin Ratio 1.2 (1.1-2.2); Bilirubin,Direct 0.7 mg/dL (0.0-0.2); Bilirubin,Indirect 1.1 mg/dL (0.0-1.0); Bilirubin,Total 1.8 mg/dL (0.3-1.0); Globulin 3.4 g/dL (2.4-3.5); Potassium 3.4 mEq/L (3.5-5.1); Total Protein 7.4 g/dL (6.4-8.9)
[2020-05-01 04:13] LABS: Troponin I 0.26 ng/mL (< 0.04)
[2020-05-01] MEDS ORDERED: 0.9 % Sodium Chloride 1,000 ML IV ONE ×2 (04:54→04:56)
[2020-05-01] MEDS ORDERED: *HR* FentaNYL (PF) 100 MCG/2 ML VIAL IVP ONE (04:56)
[2020-05-01] MEDS ORDERED: *HR* LORazepam 2 MG/ML VIAL IVP ONE (05:07)
[2020-05-01] MEDS ORDERED: Vancomycin 1,750 MG/517.5 ML IV.SOLN IVPB ONE (08:46)
[2020-05-01] MEDS ORDERED: Piperacillin/Tazobactam 3.375 GM in 0.9 % Sodium Chloride Mini Bag 100 ML IVPB ONE (08:46)
[2020-05-01] MEDS ORDERED: Naloxone 0.4 MG/ML INJ IVP PRN (09:38)
[2020-05-01] MEDS ORDERED: *HR* LORazepam 2 MG/ML VIAL IVP PRN (09:41)
[2020-05-01] MEDS: *HR* OxyCODONE/APAP 5/325 TABLET PO PRN ×2 (10:23→17:18)
[2020-05-01] MEDS: Ondansetron 4 MG/2 ML VIAL IVP PRN ×2 (10:24→16:26)
[2020-05-01] MEDS: 0.9 % Sodium Chloride 1,000 ML IVC SCH ×2 (10:25→20:39)
[2020-05-01 10:45] LABS: Troponin I 0.17 ng/mL (< 0.04)
[2020-05-01] MEDS ORDERED: Tdap (Boostrix) Vaccine 0.5 ML SYRINGE IM ONE (10:50)
[2020-05-01] MEDS: Piperacillin/Tazobactam 3.375 GM in 0.9 % Sodium Chloride Mini Bag 100 ML IVPB SCH ×2 (16:25→23:39)
[2020-05-01] MEDS: *HR* Heparin 5,000 UNIT/ML VIAL SQ SCH ×2 (16:25→21:36)
[2020-05-02 02:36] LABS: Basophils % 0.1 %; Mean Platelet Volume 9.9 fL (9.4-12.4); Nucleated Red Blood Cells 0.1 /100 WBC (0)
[2020-05-02 02:38] LABS: Hematocrit 32.6 % (37.5-50.1); Hemoglobin 11.7 g/dL (12.9-16.9); Immature Platelets 4.8 % (1.1-6.1); Lymphocytes # 1.6 K/mcL (0.6-4.6); Lymphocytes % 11.9 %; Mean Corpuscular HGB Conc 35.9 g/dL (31.6-35.5); Mean Corpuscular Hemoglobin 34.1 pg (28.0-33.3); Monocytes # 0.8 K/mcL (0.0-1.3); Monocytes % 5.8 %; Red Blood Count 3.43 M/mcL (4.19-5.50); Red Cell Distribution Width 12.4 % (11.5-14.5); Segmented Neutrophils % 81.2 %; White Blood Count 13.5 K/mcL (4.3-11.1)
[2020-05-02 02:39] LABS: Platelet Count 79 K/mcL (140-400)
[2020-05-02 03:46] LABS: Alanine Aminotransferase 83 Units/L (7-52); Albumin 2.9 g/dL (3.5-5.7); Albumin/Globulin Ratio 1.1 (1.1-2.2); Alkaline Phosphatase 92 Units/L (34-104); Aspartate Amino Transferase 148 Units/L (13-39); BUN/Creatinine Ratio 49 (6-26); Bilirubin,Total 1.1 mg/dL (0.3-1.0); Blood Urea Nitrogen 39 mg/dL (8-23); Carbon Dioxide 23 mEq/L (23-29); Chloride 97 mEq/L (98-107); Creatine Kinase 3301 Units/L (30-223); Globulin 2.6 g/dL (2.4-3.5); Glucose 143 mg/dL (70-105); Osmolality,Calculated 286 (280-300); Potassium 3.2 mEq/L (3.5-5.1); Sodium 132 mEq/L (136-145); Total Protein 5.5 g/dL (6.4-8.9); eGFR For African Americans > 60 (> 60); eGFR For Non-African Americans > 60 (> 60)
[2020-05-02] MEDS: amLODIPine 5 MG TABLET PO SCH (04:00)
[2020-05-02] MEDS: *HR* Heparin 5,000 UNIT/ML VIAL SQ SCH ×3 (05:20→23:22)
[2020-05-02] MEDS: Ondansetron 4 MG/2 ML VIAL IVP PRN ×2 (06:46→11:38)
[2020-05-02] MEDS: *HR* OxyCODONE/APAP 5/325 TABLET PO PRN (06:52)
[2020-05-02] MEDS ORDERED: Thiamine (B-1) 100 MG in 0.9 % Sodium Chloride 50 ML IVPB ONE (07:33)
[2020-05-02] MEDS: Vitamin B Complex/Vit C/Vit E 1 EACH TABLET PO SCH (11:32)
[2020-05-02] MEDS: Thiamine (B-1) 100 MG TABLET PO SCH (11:34)
[2020-05-02] MEDS: Folic Acid 1 MG TABLET PO SCH (11:34)
[2020-05-02] MEDS: lisinopriL 20 MG TABLET PO SCH (11:34)
[2020-05-02] MEDS: 0.9 % Sodium Chloride 1,000 ML IVC SCH ×2 (11:35→18:33)
[2020-05-03 03:05] LABS: Eosinophils % 0.8 %; Mean Platelet Volume 10.1 fL (9.4-12.4); Red Cell Distribution Width 12.2 % (11.5-14.5)
[2020-05-03 03:07] LABS: Basophils % 0.4 %; Eosinophils # 0.1 K/mcL (0.0-0.6); Hematocrit 28.3 % (37.5-50.1); Hemoglobin 9.9 g/dL (12.9-16.9); Immature Granulocytes % 1.6 % (0-4); Immature Platelets 4.9 % (1.1-6.1); Lymphocytes # 2.2 K/mcL (0.6-4.6); Mean Corpuscular Hemoglobin 34.3 pg (28.0-33.3); Mean Corpuscular Volume 97.9 fL (83.0-100.0); Monocytes # 0.4 K/mcL (0.0-1.3); Monocytes % 4.7 %; Neutrophils # 6.3 K/mcL (1.6-8.9); Nucleated Red Blood Cells 0.2 /100 WBC (0); Red Blood Count 2.89 M/mcL (4.19-5.50); Segmented Neutrophils % 68.5 %; White Blood Count 9.2 K/mcL (4.3-11.1)
[2020-05-03 03:13] LABS: Platelet Count 95 K/mcL (140-400)
[2020-05-03 03:27] LABS: BUN/Creatinine Ratio 47 (6-26); Blood Urea Nitrogen 24 mg/dL (8-23); Carbon Dioxide 24 mEq/L (23-29); Chloride 102 mEq/L (98-107); Glucose 101 mg/dL (70-105); Osmolality,Calculated 280 (280-300); Potassium 3.3 mEq/L (3.5-5.1); Sodium 133 mEq/L (136-145); eGFR For African Americans > 60 (> 60); eGFR For Non-African Americans > 60 (> 60)
[2020-05-03] MEDS: *HR* OxyCODONE/APAP 5/325 TABLET PO PRN ×2 (04:17→18:06)
[2020-05-03] MEDS: Ondansetron 4 MG/2 ML VIAL IVP PRN ×2 (04:23→22:00)
[2020-05-03] MEDS: *HR* Heparin 5,000 UNIT/ML VIAL SQ SCH ×3 (04:23→21:52)
[2020-05-03 07:33] LABS: Creatine Kinase 1662 Units/L (30-223)
[2020-05-03] MEDS: Thiamine (B-1) 100 MG TABLET PO SCH (08:48)
[2020-05-03] MEDS: Folic Acid 1 MG TABLET PO SCH (08:49)
[2020-05-03] MEDS: amLODIPine 5 MG TABLET PO SCH (08:49)
[2020-05-03] MEDS: Vitamin B Complex/Vit C/Vit E 1 EACH TABLET PO SCH (08:49)
[2020-05-03] MEDS: lisinopriL 20 MG TABLET PO SCH (08:49)
[2020-05-03 10:04] LABS: Albumin 2.8 g/dL (3.5-5.7); Albumin/Globulin Ratio 1.1 (1.1-2.2); Bilirubin,Direct 0.1 mg/dL (0.0-0.2); Bilirubin,Indirect 0.7 mg/dL (0.0-1.0); Bilirubin,Total 0.8 mg/dL (0.3-1.0); Globulin 2.6 g/dL (2.4-3.5); Total Protein 5.4 g/dL (6.4-8.9)
[2020-05-03] MEDS ORDERED: 0.9 % Sodium Chloride 1,000 ML IVC SCH (11:45)
[2020-05-03 13:26] LABS: % Iron Saturation 15 % (20-55); Iron 32 mcg/dL (65-175); Transferrin 148 mg/dL (203-362)
[2020-05-04 02:32] LABS: Hematocrit 28.6 % (37.5-50.1); Hemoglobin 9.8 g/dL (12.9-16.9); Mean Corpuscular HGB Conc 34.3 g/dL (31.6-35.5); Mean Corpuscular Hemoglobin 34.9 pg (28.0-33.3); Mean Corpuscular Volume 101.8 fL (83.0-100.0); Mean Platelet Volume 10.1 fL (9.4-12.4); Platelet Count 119 K/mcL (140-400); Red Blood Count 2.81 M/mcL (4.19-5.50); Red Cell Distribution Width 12.5 % (11.5-14.5)
[2020-05-04 02:46] LABS: Albumin 2.7 g/dL (3.5-5.7); Albumin/Globulin Ratio 1.1 (1.1-2.2); Bilirubin,Direct 0.1 mg/dL (0.0-0.2); Bilirubin,Indirect 0.4 mg/dL (0.0-1.0); Bilirubin,Total 0.5 mg/dL (0.3-1.0); Globulin 2.4 g/dL (2.4-3.5); Total Protein 5.1 g/dL (6.4-8.9)
[2020-05-04 02:47] LABS: BUN/Creatinine Ratio 39 (6-26); Blood Urea Nitrogen 20 mg/dL (8-23); Calcium 8.6 mg/dL (8.6-10.3); Carbon Dioxide 27 mEq/L (23-29); Chloride 104 mEq/L (98-107); Glucose 114 mg/dL (70-105); Osmolality,Calculated 283 (280-300); Potassium 3.7 mEq/L (3.5-5.1); Sodium 135 mEq/L (136-145); eGFR For African Americans > 60 (> 60); eGFR For Non-African Americans > 60 (> 60)
[2020-05-04] MEDS: *HR* Heparin 5,000 UNIT/ML VIAL SQ SCH ×3 (05:19→19:56)
[2020-05-04] MEDS: *HR* OxyCODONE/APAP 5/325 TABLET PO PRN ×2 (10:46→20:00)
[2020-05-04] MEDS: Thiamine (B-1) 100 MG TABLET PO SCH (10:46)
[2020-05-04] MEDS: lisinopriL 20 MG TABLET PO SCH (10:46)
[2020-05-04] MEDS: Folic Acid 1 MG TABLET PO SCH (10:46)
[2020-05-04] MEDS: Vitamin B Complex/Vit C/Vit E 1 EACH TABLET PO SCH (10:46)
[2020-05-04] MEDS: amLODIPine 5 MG TABLET PO SCH (10:46)
[2020-05-04] MEDS: Promethazine 12.5 MG in 0.9 % Sodium Chloride 50 ML IVPB PRN (12:27)
[2020-05-04] MEDS: Ondansetron 4 MG/2 ML VIAL IVP PRN (20:00)
[2020-05-05 02:08] LABS: Hematocrit 30.3 % (37.5-50.1); Hemoglobin 10.5 g/dL (12.9-16.9); Mean Corpuscular HGB Conc 34.7 g/dL (31.6-35.5); Mean Corpuscular Hemoglobin 35.5 pg (28.0-33.3); Mean Corpuscular Volume 102.4 fL (83.0-100.0); Mean Platelet Volume 9.7 fL (9.4-12.4); Nucleated Red Blood Cells 0.2 /100 WBC (0); Platelet Count 172 K/mcL (140-400); Red Blood Count 2.96 M/mcL (4.19-5.50); Red Cell Distribution Width 12.9 % (11.5-14.5); White Blood Count 9.5 K/mcL (4.3-11.1)
[2020-05-05 02:24] LABS: BUN/Creatinine Ratio 33 (6-26); Blood Urea Nitrogen 15 mg/dL (8-23); Calcium 8.3 mg/dL (8.6-10.3); Carbon Dioxide 25 mEq/L (23-29); Chloride 103 mEq/L (98-107); Glucose 113 mg/dL (70-105); Osmolality,Calculated 284 (280-300); Potassium 3.7 mEq/L (3.5-5.1); Sodium 136 mEq/L (136-145); eGFR For African Americans > 60 (> 60); eGFR For Non-African Americans > 60 (> 60)
[2020-05-05 02:55] LABS: Eosinophils # 0.2 K/mcL (0.0-0.6); Lymphocytes # 2.5 K/mcL (0.6-4.6); Monocytes # 0.6 K/mcL (0.0-1.3); Neutrophils # 5.3 K/mcL (1.6-8.9); Platelet Estimate Normal (Normal); Polychromasia 1+ (Not Present); Smudge Cells Present (Not Present); Toxic Granulation Present (Not Present)
[2020-05-05] MEDS: *HR* OxyCODONE/APAP 5/325 TABLET PO PRN ×4 (03:14→22:43)
[2020-05-05] MEDS: Ondansetron 4 MG/2 ML VIAL IVP PRN (03:18)
[2020-05-05] MEDS: *HR* Heparin 5,000 UNIT/ML VIAL SQ SCH ×3 (05:30→20:09)
[2020-05-05] MEDS: Vitamin B Complex/Vit C/Vit E 1 EACH TABLET PO SCH (09:09)
[2020-05-05] MEDS: lisinopriL 20 MG TABLET PO SCH (09:09)
[2020-05-05] MEDS: Folic Acid 1 MG TABLET PO SCH (09:09)
[2020-05-05] MEDS: amLODIPine 5 MG TABLET PO SCH (09:09)
[2020-05-05] MEDS: Thiamine (B-1) 100 MG TABLET PO SCH (09:09)
[2020-05-05] MEDS ORDERED: *HR* Midazolam HCl 2 MG/2 ML VIAL ONE (10:52)
[2020-05-05] MEDS ORDERED: Lidocaine -MPF 2% 2 ML VIAL ONE (10:52)
[2020-05-05] MEDS ORDERED: *HR* FentaNYL (PF) 100 MCG/2 ML VIAL ONE (10:52)
[2020-05-05] MEDS ORDERED: *HR* Propofol 200 MG/20 ML VIAL IVP ONE ×2 (10:52→12:54)
[2020-05-05] MEDS ORDERED: Bupivacaine/EPI 1:200k 0.5%PF 10 ML VIAL ONE (10:57)
[2020-05-05] MEDS ORDERED: Ropivacaine/PF 0.5% 30 ML VIAL ONE (10:59)
[2020-05-05] MEDS ORDERED: *HR* Midazolam HCl 5 MG/5 ML VIAL IVP ONE (11:01)
[2020-05-05] MEDS ORDERED: *HR* FentaNYL (PF) 100 MCG/2 ML VIAL IVP PRN (11:07)
[2020-05-05] MEDS ORDERED: *HR* Metoprolol 5 MG/5 ML VIAL IVP PRN (11:07)
[2020-05-05] MEDS ORDERED: *HR* HYDROmorphone PF 0.5 MG/0.5 ML SYRINGE IVP PRN (11:07)
[2020-05-05] MEDS ORDERED: *HR* Succinylcholine 200 MG/10 ML VIAL IVP ONE (11:39)
[2020-05-05] MEDS ORDERED: EPHEDrine 50 MG/ML VIAL ONE (11:50)
[2020-05-05] MEDS ORDERED: Ondansetron 4 MG/2 ML VIAL ONE (14:21)
[2020-05-05] MEDS ORDERED: Dexamethasone 4 MG/ML VIAL ONE (14:22)
[2020-05-05] MEDS ORDERED: *HR* HYDROMORPHONE 2 MG/ML VIAL ONE (14:29)
[2020-05-05] MEDS: ceFAZolin 2,000 MG in 0.9 % Sodium Chloride 100 ML IVPB SCH (16:22)
[2020-05-06] MEDS: ceFAZolin 2,000 MG in 0.9 % Sodium Chloride 100 ML IVPB SCH ×3 (01:49→18:49)
[2020-05-06] MEDS: Ondansetron 4 MG/2 ML VIAL IVP PRN ×3 (01:57→19:49)
[2020-05-06 03:02] LABS: Hemoglobin 10.4 g/dL (12.9-16.9); Mean Corpuscular HGB Conc 33.5 g/dL (31.6-35.5); Mean Corpuscular Hemoglobin 34.7 pg (28.0-33.3); Mean Corpuscular Volume 103.3 fL (83.0-100.0); Mean Platelet Volume 9.4 fL (9.4-12.4); Neutrophils # 9.4 K/mcL (1.6-8.9); Platelet Count 230 K/mcL (140-400); Red Cell Distribution Width 13.4 % (11.5-14.5); White Blood Count 12.7 K/mcL (4.3-11.1)
[2020-05-06 03:20] LABS: BUN/Creatinine Ratio 27 (6-26); Blood Urea Nitrogen 13 mg/dL (8-23); Calcium 8.8 mg/dL (8.6-10.3); Carbon Dioxide 28 mEq/L (23-29); Chloride 100 mEq/L (98-107); Glucose 168 mg/dL (70-105); Osmolality,Calculated 284 (280-300); Potassium 3.9 mEq/L (3.5-5.1); Sodium 135 mEq/L (136-145); eGFR For African Americans > 60 (> 60); eGFR For Non-African Americans > 60 (> 60)
[2020-05-06 03:34] LABS: Lymphocytes # 1.8 K/mcL (0.6-4.6); Platelet Estimate Normal (Normal); Toxic Granulation Present (Not Present)
[2020-05-06 03:35] LABS: Polychromasia 1+ (Not Present); Reactive Lymphocytes Present (Not Present)
[2020-05-06] MEDS ORDERED: *HR* OxyCODONE Immed Rel 5 MG TABLET PO ONE (03:35)
[2020-05-06] MEDS: *HR* Heparin 5,000 UNIT/ML VIAL SQ SCH ×3 (04:11→19:46)
[2020-05-06] MEDS: lisinopriL 20 MG TABLET PO SCH (08:36)
[2020-05-06] MEDS: Thiamine (B-1) 100 MG TABLET PO SCH (08:36)
[2020-05-06] MEDS: Folic Acid 1 MG TABLET PO SCH (08:36)
[2020-05-06] MEDS: *HR* OxyCODONE/APAP 5/325 TABLET PO PRN ×3 (08:37→18:08)
[2020-05-06] MEDS: amLODIPine 5 MG TABLET PO SCH (08:37)
[2020-05-06] MEDS: Vitamin B Complex/Vit C/Vit E 1 EACH TABLET PO SCH (08:37)
[2020-05-07] MEDS: *HR* OxyCODONE/APAP 5/325 TABLET PO PRN ×3 (00:22→17:38)
[2020-05-07 03:08] LABS: Hemoglobin 9.9 g/dL (12.9-16.9); Mean Corpuscular HGB Conc 31.9 g/dL (31.6-35.5); Mean Corpuscular Hemoglobin 33.9 pg (28.0-33.3); Mean Corpuscular Volume 106.2 fL (83.0-100.0); Mean Platelet Volume 9.7 fL (9.4-12.4); Platelet Count 289 K/mcL (140-400); Red Blood Count 2.92 M/mcL (4.19-5.50); Red Cell Distribution Width 13.8 % (11.5-14.5); White Blood Count 11.7 K/mcL (4.3-11.1)
[2020-05-07 03:15] LABS: BUN/Creatinine Ratio 30 (6-26); Blood Urea Nitrogen 14 mg/dL (8-23); Calcium 8.4 mg/dL (8.6-10.3); Carbon Dioxide 27 mEq/L (23-29); Chloride 102 mEq/L (98-107); Glucose 112 mg/dL (70-105); Osmolality,Calculated 283 (280-300); Potassium 3.7 mEq/L (3.5-5.1); Sodium 136 mEq/L (136-145); eGFR For African Americans > 60 (> 60); eGFR For Non-African Americans > 60 (> 60)
[2020-05-07] MEDS ORDERED: *HR* OxyCODONE Immed Rel 5 MG TABLET PO ONE (04:32)
[2020-05-07] MEDS: *HR* Heparin 5,000 UNIT/ML VIAL SQ SCH ×3 (04:46→21:15)
[2020-05-07] MEDS: amLODIPine 5 MG TABLET PO SCH (09:17)
[2020-05-07] MEDS: Thiamine (B-1) 100 MG TABLET PO SCH (09:17)
[2020-05-07] MEDS: Vitamin B Complex/Vit C/Vit E 1 EACH TABLET PO SCH (09:17)
[2020-05-07] MEDS: lisinopriL 20 MG TABLET PO SCH (09:18)
[2020-05-07] MEDS: Folic Acid 1 MG TABLET PO SCH (09:18)
[2020-05-07] MEDS ORDERED: *HR* LORazepam 2 MG/ML VIAL IVP ONE (09:20)
[2020-05-07] MEDS: Ondansetron 4 MG/2 ML VIAL IVP PRN ×2 (09:23→17:38)
[2020-05-07] MEDS: Ketorolac 15 MG/ML VIAL IVP PRN ×2 (14:04→21:16)
[2020-05-07] MEDS: Promethazine 12.5 MG in 0.9 % Sodium Chloride 50 ML IVPB PRN (14:06)
[2020-05-08] MEDS: *HR* OxyCODONE/APAP 5/325 TABLET PO PRN ×3 (04:20→20:37)
[2020-05-08] MEDS: *HR* Heparin 5,000 UNIT/ML VIAL SQ SCH ×3 (05:11→20:37)
[2020-05-08 07:06] LABS: Hematocrit 30.3 % (37.5-50.1); Hemoglobin 9.7 g/dL (12.9-16.9); Mean Corpuscular Hemoglobin 33.6 pg (28.0-33.3); Mean Corpuscular Volume 104.8 fL (83.0-100.0); Mean Platelet Volume 9.5 fL (9.4-12.4); Platelet Count 352 K/mcL (140-400); Red Blood Count 2.89 M/mcL (4.19-5.50); Red Cell Distribution Width 13.9 % (11.5-14.5); White Blood Count 11.6 K/mcL (4.3-11.1)
[2020-05-08 07:31] LABS: BUN/Creatinine Ratio 27 (6-26); Blood Urea Nitrogen 14 mg/dL (8-23); Calcium 8.2 mg/dL (8.6-10.3); Carbon Dioxide 29 mEq/L (23-29); Chloride 102 mEq/L (98-107); Glucose 106 mg/dL (70-105); Osmolality,Calculated 283 (280-300); Potassium 4.2 mEq/L (3.5-5.1); Sodium 136 mEq/L (136-145); eGFR For African Americans > 60 (> 60); eGFR For Non-African Americans > 60 (> 60)
[2020-05-08] MEDS: lisinopriL 20 MG TABLET PO SCH (10:56)
[2020-05-08] MEDS: Folic Acid 1 MG TABLET PO SCH (10:56)
[2020-05-08] MEDS: amLODIPine 5 MG TABLET PO SCH (10:57)
[2020-05-08] MEDS: Thiamine (B-1) 100 MG TABLET PO SCH (10:57)
[2020-05-08] MEDS: Vitamin B Complex/Vit C/Vit E 1 EACH TABLET PO SCH (10:57)
[2020-05-08] MEDS: Ondansetron 4 MG/2 ML VIAL IVP PRN (10:58)
[2020-05-08] MEDS: Ketorolac 15 MG/ML VIAL IVP PRN (10:59)
[2020-05-09 03:21] LABS: Hematocrit 28.3 % (37.5-50.1); Hemoglobin 9.4 g/dL (12.9-16.9); Mean Corpuscular HGB Conc 33.2 g/dL (31.6-35.5); Mean Corpuscular Hemoglobin 35.3 pg (28.0-33.3); Mean Corpuscular Volume 106.4 fL (83.0-100.0); Mean Platelet Volume 9.5 fL (9.4-12.4); Platelet Count 391 K/mcL (140-400); Red Blood Count 2.66 M/mcL (4.19-5.50); Red Cell Distribution Width 13.8 % (11.5-14.5); White Blood Count 12.6 K/mcL (4.3-11.1)
[2020-05-09 03:23] LABS: BUN/Creatinine Ratio 34 (6-26); Blood Urea Nitrogen 14 mg/dL (8-23); Calcium 8.5 mg/dL (8.6-10.3); Carbon Dioxide 27 mEq/L (23-29); Chloride 104 mEq/L (98-107); Glucose 134 mg/dL (70-105); Osmolality,Calculated 286 (280-300); Potassium 3.9 mEq/L (3.5-5.1); Sodium 137 mEq/L (136-145); eGFR For African Americans > 60 (> 60); eGFR For Non-African Americans > 60 (> 60)
[2020-05-09] MEDS: *HR* OxyCODONE/APAP 5/325 TABLET PO PRN ×3 (03:26→20:03)
[2020-05-09] MEDS: *HR* Heparin 5,000 UNIT/ML VIAL SQ SCH ×3 (06:26→20:03)
[2020-05-09] MEDS: Folic Acid 1 MG TABLET PO SCH (07:59)
[2020-05-09] MEDS: lisinopriL 20 MG TABLET PO SCH (07:59)
[2020-05-09] MEDS: Vitamin B Complex/Vit C/Vit E 1 EACH TABLET PO SCH (07:59)
[2020-05-09] MEDS: Thiamine (B-1) 100 MG TABLET PO SCH (07:59)
[2020-05-09] MEDS: amLODIPine 5 MG TABLET PO SCH (07:59)
[2020-05-09] MEDS: Ketorolac 15 MG/ML VIAL IVP PRN (08:08)
[2020-05-09] MEDS ORDERED: Ibuprofen 600 MG TABLET PO PRN (14:31)
[2020-05-10] MEDS ORDERED: 0.9 % Sodium Chloride 500 ML IVC ONE (00:21)
[2020-05-10] MEDS: *HR* Heparin 5,000 UNIT/ML VIAL SQ SCH ×3 (04:43→20:00)
[2020-05-10 06:24] LABS: Basophils # 0.1 K/mcL (0.0-0.2); Basophils % 0.6 %; Eosinophils % 0.2 %; Hematocrit 30.9 % (37.5-50.1); Hemoglobin 10.2 g/dL (12.9-16.9); Immature Granulocytes % 2.7 % (0-4); Lymphocytes # 2.5 K/mcL (0.6-4.6); Lymphocytes % 15.7 %; Mean Corpuscular Hemoglobin 34.5 pg (28.0-33.3); Mean Corpuscular Volume 104.4 fL (83.0-100.0); Mean Platelet Volume 9.5 fL (9.4-12.4); Monocytes # 0.8 K/mcL (0.0-1.3); Monocytes % 4.7 %; Neutrophils # 12.3 K/mcL (1.6-8.9); Platelet Count 403 K/mcL (140-400); Red Blood Count 2.96 M/mcL (4.19-5.50); Red Cell Distribution Width 13.5 % (11.5-14.5); Segmented Neutrophils % 76.1 %; White Blood Count 16.2 K/mcL (4.3-11.1)
[2020-05-10] MEDS: Vitamin B Complex/Vit C/Vit E 1 EACH TABLET PO SCH (08:39)
[2020-05-10] MEDS: lisinopriL 20 MG TABLET PO SCH (08:39)
[2020-05-10] MEDS: amLODIPine 5 MG TABLET PO SCH (08:39)
[2020-05-10] MEDS: Thiamine (B-1) 100 MG TABLET PO SCH (08:40)
[2020-05-10] MEDS: Folic Acid 1 MG TABLET PO SCH (08:40)
[2020-05-10] MEDS: Ringers Solution, Lactated 1,000 ML IVC SCH (15:44)
[2020-05-10 16:54] LABS: Adenovirus F 40/41 PCR Not detected (Not detect); Astrovirus PCR Not detected (Not detect); C.difficile Toxin A/B Gene PCR Not detected (Not detect); Campylobacter by PCR Not detected (Not detect); Cryptosporidium by PCR Not detected (Not detect); Cyclospora cayetanensis PCR Not detected (Not detect); E. coli O157 by PCR Not detected (Not detect); Entamoeba histolytica PCR Not detected (Not detect); Enteroaggregative E.coli(EAEC) Not detected (Not detect); Enteropathogenic E.coli(EPEC) Not detected (Not detect); Enterotoxigenic E.coli (ETEC) Not detected (Not detect); Giardia lamblia PCR Not detected (Not detect); Norovirus GI/GII PCR Not detected (Not detect); Plesiomonas shigelloides PCR Not detected (Not detect); Rotavirus A PCR Not detected (Not detect); Salmonella PCR Not detected (Not detect); Sapovirus PCR Not detected (Not detect); Shig/EnteroinvasiveE coli EIEC Not detected (Not detect); Shigalike tox-prod E coli STEC Not detected (Not detect); Vibrio PCR Not detected (Not detect); Vibrio cholerae PCR Not detected (Not detect); Yersinia enterocolitica PCR Not detected (Not detect)
[2020-05-10] MEDS: *HR* OxyCODONE/APAP 5/325 TABLET PO PRN (19:33)
[2020-05-11] MEDS: Ringers Solution, Lactated 1,000 ML IVC SCH (01:55)
[2020-05-11] MEDS: *HR* OxyCODONE/APAP 5/325 TABLET PO PRN ×4 (01:56→23:07)
[2020-05-11] MEDS: *HR* Heparin 5,000 UNIT/ML VIAL SQ SCH ×3 (06:05→21:00)
[2020-05-11 06:56] LABS: Basophils # 0.1 K/mcL (0.0-0.2); Basophils % 0.6 %; Eosinophils # 0.1 K/mcL (0.0-0.6); Eosinophils % 0.4 %; Hematocrit 28.2 % (37.5-50.1); Hemoglobin 9.2 g/dL (12.9-16.9); Immature Granulocytes % 2.7 % (0-4); Lymphocytes # 2.7 K/mcL (0.6-4.6); Lymphocytes % 19.6 %; Mean Corpuscular HGB Conc 32.6 g/dL (31.6-35.5); Mean Corpuscular Hemoglobin 33.8 pg (28.0-33.3); Mean Corpuscular Volume 103.7 fL (83.0-100.0); Mean Platelet Volume 9.8 fL (9.4-12.4); Monocytes # 0.8 K/mcL (0.0-1.3); Monocytes % 5.5 %; Neutrophils # 9.9 K/mcL (1.6-8.9); Platelet Count 372 K/mcL (140-400); Red Blood Count 2.72 M/mcL (4.19-5.50); Red Cell Distribution Width 13.8 % (11.5-14.5); Segmented Neutrophils % 71.2 %
[2020-05-11 07:16] LABS: BUN/Creatinine Ratio 26 (6-26); Blood Urea Nitrogen 10 mg/dL (8-23); Carbon Dioxide 24 mEq/L (23-29); Chloride 105 mEq/L (98-107); Glucose 87 mg/dL (70-105); Osmolality,Calculated 286 (280-300); Potassium 3.4 mEq/L (3.5-5.1); Sodium 139 mEq/L (136-145); eGFR For African Americans > 60 (> 60); eGFR For Non-African Americans > 60 (> 60)
[2020-05-11] MEDS: Folic Acid 1 MG TABLET PO SCH (07:47)
[2020-05-11] MEDS: Thiamine (B-1) 100 MG TABLET PO SCH (07:47)
[2020-05-11] MEDS: lisinopriL 20 MG TABLET PO SCH (07:47)
[2020-05-11] MEDS: Vitamin B Complex/Vit C/Vit E 1 EACH TABLET PO SCH (07:47)
[2020-05-11] MEDS: amLODIPine 5 MG TABLET PO SCH (07:47)
[2020-05-12 02:06] LABS: Hematocrit 29.3 % (37.5-50.1); Hemoglobin 9.5 g/dL (12.9-16.9); Mean Corpuscular HGB Conc 32.4 g/dL (31.6-35.5); Mean Corpuscular Hemoglobin 34.9 pg (28.0-33.3); Mean Corpuscular Volume 107.7 fL (83.0-100.0); Mean Platelet Volume 9.4 fL (9.4-12.4); Platelet Count 329 K/mcL (140-400); Red Blood Count 2.72 M/mcL (4.19-5.50); Red Cell Distribution Width 14.1 % (11.5-14.5); White Blood Count 11.7 K/mcL (4.3-11.1)
[2020-05-12 02:22] LABS: BUN/Creatinine Ratio 32 (6-26); Blood Urea Nitrogen 12 mg/dL (8-23); Calcium 8.5 mg/dL (8.6-10.3); Carbon Dioxide 21 mEq/L (23-29); Chloride 107 mEq/L (98-107); Glucose 103 mg/dL (70-105); Osmolality,Calculated 284 (280-300); Potassium 4.1 mEq/L (3.5-5.1); Sodium 137 mEq/L (136-145); eGFR For African Americans > 60 (> 60); eGFR For Non-African Americans > 60 (> 60)
[2020-05-12] MEDS: *HR* Heparin 5,000 UNIT/ML VIAL SQ SCH (06:13)
[2020-05-12] MEDS: *HR* OxyCODONE/APAP 5/325 TABLET PO PRN (06:13)
[2020-05-12] MEDS: lisinopriL 20 MG TABLET PO SCH (08:26)
[2020-05-12] MEDS: Folic Acid 1 MG TABLET PO SCH (08:26)
[2020-05-12] MEDS: Thiamine (B-1) 100 MG TABLET PO SCH (08:26)
[2020-05-12] MEDS: amLODIPine 5 MG TABLET PO SCH (08:26)
[2020-05-12] MEDS: Vitamin B Complex/Vit C/Vit E 1 EACH TABLET PO SCH (08:26)
[2020-05-12 11:44] VITALS: BP 152/85
== END 2020-05-12 14:53 | disposition home health service (06) | DRG 710 ==
LOC: EMEROOARM 02:03 → 2ANU 13:17 → SUATTDRO 13:17 → 2ANU 13:49
PROVIDERS: ADMIT Internal Medicine; ATTEND Internal Medicine